=== PATIENT | male | born 1970 | race African-American/Black ===

== ENCOUNTER 2018-02-11 12:37 | Inpatient (IN) | payer OTHER ==
[2018-02-11 13:21] VITALS: BMI 22.0
--- NOTE | 2018-02-11 16:16 | HP ---
CIWA Score - CIWA Score Nausea/Vomitin Muscle Tremors: 3 Anxiety: 3 Agitation: 3 Paroxysmal Sweats: 1-Minimal Palms Moist Orientation: 0-Oriented Tacttile Disturbances: 2-Mild Itch/Numbness/Burn Auditory Disturbances: 2-Mild Harshness/Frighten Visual Disturbances: 1-Very Mild Sensitivity Headache: 2-Mild CIWA-Ar Total Score: 20 Admission ROS [facility] - HPI Chief Complaint: i am here need help to stop drinking alcohol and cocaine Allergies/Adverse Reactions: Allergies Allergy/AdvReac Type Severity Reaction Status Date / Time No Known Allergies Allergy Verified 02/11/18 16:25 History of Present Illness: this 47 years old male with alcohol and cocaine dependence,seeking detox, withdrawal symptom,never been in detox before, hypertension,hiv since 1993 depression nicotine dependence no significant period of sobriety Exam Limitations: No Limitations - Ebola screening Have you traveled outside of the country in the last 21 days: No Have you had contact with anyone from an Ebola affected area: No Have you been sick,other than usual withdrawal symptoms: Yes Do you have a fever: No - Review of Systems Constitutional: Loss of Appetite, Malaise, Night Sweats, Changes in sleep, Weakness, Unintentional Wgt. Loss EENT: reports: Nose Congestion Respiratory: reports: No Symptoms reported Cardiac: reports: No Symptoms Reported GI: reports: Nausea, Vomiting, Abdominal cramping : reports: No Symptoms Reported Musculoskeletal: reports: Back Pain, Muscle Pain Integumentary: reports: Dryness Neuro: reports: Headache, Tremors Endocrine: reports: No Symptoms Reported Hematology: reports: No Symptoms Reported, Other (hiv) Psychiatric: reports: No Sypmtoms Reported, Judgement Intact, Mood/Affect Appropiate, Orientated x3 (insomnia), Anxious, Depressed Patient History - Patient Medical History Hx Anemia: No Hx Chronic Obstructive Pulmonary Disease (COPD): No Hx Cancer: No Hx Cardiac Disorders: No Hx Congestive Heart Failure: No Hx Hypertension: Yes (on med) Hx Hypercholesterolemia: No Hx Pacemaker: No HX Cerebrovascular Accident: No Hx Seizures: No Hx Dementia: No Hx Diabetes: No Hx Gastrointestinal Disorders: No Hx Liver Disease: No Hx Genitourinary Disorders: No Hx Sexually Transmitted Disorders: Yes (1984 gonorrhea) Hx Renal Disease (ESRD): No Hx Thyroid Disease: No Hx Human Immunodeficiency Virus (HIV): Yes (since 1993) Hx Hepatitis C: No Hx Depression: Yes 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44,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) Hx Bipolar Disorder: No Hx Schizophrenia: No Other Medical History: anxiety,depression,insomnia,s/p cataract surgery left pot trauma in 2016 - Patient Surgical History Past Surgical History: Yes Hx Cataract Extraction: Yes (in 2016 left post traumatic ,vision loss left) - PPD History Previous Implant?: Yes Documented Results: Negative w/o proof Implanted On Prior R Admission?: No PPD to be Administered?: Yes - Smoking Cessation Smoking history: Current every day smoker Have you smoked in the past 12 months: Yes Aproximately how many cigarettes per day: 7 Cigars Per Day: 0 Hx Chewing Tobacco Use: No Initiated information on smoking cessation: Yes 'Breaking Loose' booklet given: 02/11/18 - Substance & Tx. History Hx Alcohol Use: Yes Hx Substance Use: Yes Substance Use Type: Alcohol, Cocaine Hx Substance Use Treatment: No - Substances Abused Alcohol Route: Oral Frequency: Daily Amount used: 6 of 22 ozs of beer Age of first use: 12 Date of Last Use: 02/11/18 Cocaine Route: Smoking Frequency: Daily Amount used: 30$ Age of first use: 17 Date of Last Use: 02/11/18 Family Disease History - Family Disease History Family History: Denies Admission Physical Exam [facility] - Vital Signs Vital Signs: Vital Signs - 24 hr 02/11/18 13:19 Temperature 97.6 F Pulse Rate 86 Respiratory 18 Rate Blood Pressure 126/85 - Physical General Appearance: Yes: Moderate Distress, Tremorous, Irritable, Sweating, Anxious HEENTM: Yes: Normal ENT Inspection, Pharynx Normal, Nasal Congestion, Other (s/ p surgery for cataract left eye in 2016 with vision loss) Respiratory: Yes: Lungs Clear, Normal Breath Sounds, No Respiratory Distress Neck: Yes: Within Normal Limits, Supple, Trachea in good position Breast: Yes: Within Normal Limits Cardiology: Yes: Within Normal Limits, Regular Rhythm, Regular Rate, S1, S2 Abdominal: Yes: Within Normal Limits, Normal Bowel Sounds, Non Tender, Flat, Soft Genitourinary: Yes: Within Normal Limits Back: Yes: Muscle Spasm Musculoskeletal: Yes: Back pain, Muscle Pain Extremities: Yes: Within Normal Limits, Normal Range of Motion, Tremors 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, Fully Oriented, Alert, Motor Strength 5/5 Integumentary: Yes: Dry Lymphatic: Yes: Within Normal Limits - Diagnostic (1) Alcohol dependence with uncomplicated withdrawal Current Visit: Yes Status: Acute (2) Cocaine dependence Current Visit: Yes Status: Acute (3) HIV (human immunodeficiency virus infection) Current Visit: Yes Status: Acute (4) Insomnia secondary to depression with anxiety Current Visit: Yes Status: Acute (5) Nicotine dependence Current Visit: Yes Status: Acute Cleared for Admission [facility] - Detox or Rehab [facility] Level of Care: Medically Managed Detox Regimen/Protocol: Librium [facility] Breath Alcohol Content Breath Alcohol Content: 0 Urine Drug Screen - Results Drug Screen Negative: No Urine Drug Screen Results: THC-Marijuana, NICHOLAS-Cocaine
[2018-02-11] MEDS ORDERED: IBUPROFEN 400 MG TABLET (FP) PO PRN (16:32)
[2018-02-11] MEDS ORDERED: MAGNESIUM CITRATE 300 ML BOTTLE PO PRN (16:32)
[2018-02-11] MEDS ORDERED: P-EPHED 60MG/TRIPROLIDI 2.5MG TABLET PO PRN (16:32)
[2018-02-11] MEDS ORDERED: guaiFENesin/D-METHORPHAN HB 10 ML UNIT-DOSE CUPS PO PRN (16:32)
[2018-02-11] MEDS ORDERED: LOPERAMIDE HCL 2 MG CAPSULE PO PRN (16:32)
[2018-02-11] MEDS ORDERED: ACETAMINOPHEN 325 MG TABLET (FP) PO PRN (16:32)
[2018-02-11] MEDS ORDERED: MENTHOL/PHENOL 1 EACH UD MM PRN (16:32)
[2018-02-11] MEDS ORDERED: MAGNESIUM HYDROX 2400MG/30ML ORAL SUSPENSION 30 ML CUP PO PRN (16:32)
[2018-02-11] MEDS ORDERED: MAG HYDROX/AL HYDROX/SIMETH 30 ML UNIT-DOSE CUP PO PRN (16:32)
[2018-02-11] MEDS ORDERED: hydrOXYzine PAMOATE 50 MG CAPSULE (FP) PO PRN (16:32)
[2018-02-11] MEDS ORDERED: chlordiazePOXIDE HCL 25 MG CAPSULE PO PRN (16:32)
[2018-02-11] MEDS ORDERED: chlordiazePOXIDE HCL 25 MG CAPSULE PO ONE (17:15)
[2018-02-11] MEDS ORDERED: MELATONIN 5 MG TABLETS PO PRN (22:00)
[2018-02-11] MEDS: THIAMINE HCL 100 MG TABLET (FP) PO SCH (23:04)
[2018-02-11] MEDS: chlordiazePOXIDE HCL 25 MG CAPSULE PO SCH (23:04)
[2018-02-11 23:46] LABS: URINE APPEARANCE SLCLOUDY; URINE COLOR AMBER; URINE GLUCOSE (UA) NEGATIVE (NEGATIVE); URINE KETONE TRACE (NEGATIVE); URINE LEUK ESTERASE NEGATIVE (NEGATIVE); URINE NITRITE NEGATIVE (NEGATIVE); URINE UROBILINOGEN 4.0 E.U/dl mg/dL (0.2-1.0)
[2018-02-11 23:53] LABS: URINE PROTEIN 1+ (NEGATIVE)
[2018-02-11 23:57] LABS: EPI CELLS RARE /HPF (FEW); URINE MUCUS MANY
[2018-02-12] MEDS: chlordiazePOXIDE HCL 25 MG CAPSULE PO SCH ×4 (06:06→22:11)
[2018-02-12 09:50] LABS: HEMATOCRIT 42.9 % (35.4-49); HEMOGLOBIN 14.4 GM/dL (11.7-16.9); MCH 30.4 pg (25.7-33.7); MCHC 33.7 g/dl (32.0-35.9); MEAN CELL VOLUME 90.3 fl (80-96); MEAN PLT VOLUME 8.6 fl (7.5-11.1); PLATELET COUNT 284 K/MM3 (134-434); RBC 4.74 M/mm3 (4.00-5.60); RDW 15.8 % (11.9-15.9); WHITE BLOOD COUNT 8.1 K/mm3 (4.0-10.0)
[2018-02-12] MEDS: PATIENT'S OWN MEDICATION (NON-FORMULARY) (Emtricitabine/Tenofov Alafenam [Descovy 200-25 M PO SCH (10:20)
[2018-02-12] MEDS: PRENATAL VITAMINS W/ FOLIC ACID TABLET (FP) PO SCH (10:20)
[2018-02-12] MEDS: PATIENT'S OWN MEDICATION (NON-FORMULARY) (Dolutegravir Sodium 50 MG) PO SCH (10:20)
[2018-02-12] MEDS: HYDROCHLOROTHIAZIDE PO SCH (10:20)
[2018-02-12 10:42] LABS: ALBUMIN 3.6 g/dl (3.4-5.0); ANION GAP 6 (8-16); BLOOD UREA NITROGEN 17 mg/dL (7-18); CHLORIDE 109 mmol/L (98-107); CO2 26 mmol/L (21-32); GLUCOSE,RANDOM 105 mg/dL (74-106); POTASSIUM 4.9 mmol/L (3.5-5.1); SGOT/AST 29 U/L (15-37); SGPT/ALT 27 U/L (12-78); SODIUM 141 mmol/L (136-145)
[2018-02-12 10:44] LABS: ALK PHOS 100 U/L (45-117); BILIRUBIN,TOTAL 0.6 mg/dL (0.2-1.0); CALCIUM 8.6 mg/dL (8.5-10.1); CREATININE 1.5 mg/dL (0.7-1.3); TOT PROT 7.2 g/dl (6.4-8.2)
--- NOTE | 2018-02-12 11:14 | CONSULT ---
[facility] Psychiatric Consult - Data Date of interview: 02/12/18 Admission source: [facility] Identifying data: Patient is a 47 year old single male, without kids, unemployed , receiving public assistance, and resides at an [facility]. This is patient's first admission to [facility]. Patient admitted to for alcohol and cocaine dependence. Substance Abuse History: Following information confirmed with Mr. Caceres: - Smoking Cessation. Smoking history: Current every day smoker. Have you smoked in the past 12 months: Yes. Aproximately how many cigarettes per day: 7. Cigars Per Day: 0. Hx Chewing Tobacco Use: No. Initiated information on smoking cessation: Yes. 'Breaking Loose' booklet given: 02/11/18. - Substance & Tx. History. Hx Alcohol Use: Yes. Hx Substance Use: Yes. Substance Use Type : Alcohol, Cocaine. Hx Substance Use Treatment: No. - Substances Abused. Alcohol. Route: Oral. Frequency: Daily. Amount used: 6 of 22 ozs of beer. Age of first use: 12. Date of Last Use: 02/11/18. Cocaine. Route: Smoking. Frequency: Daily. Amount used: 30$. Age of first use: 17. Date of Last Use: 02/11/18 Medical History: hypertension, HIV Psychiatric History: Patient denies h/o psychiatric hospitalizations, and suicide attempts. Pt. was incarcerated from [id number] for arm robbery and has been prescribed mirtzapine for nine years. Pt. is currently accepting mirtzapine 45mg qhs. Patient is currently receiving his refills from [facility] Pt. reports a diagnosis of Antisocial/depression. Patient reports one suicide attempt while in [place]ision via self multilation. Patient currently denies suicidal and homicidal ideation. Physical/Sexual Abuse/Trauma History: Denies. Mental Status Exam - Mental Status Exam Alert and Oriented to: Time, Place, Person Cognitive Function: Good Patient Appearance: Well Groomed Mood: Hopeful Affect: Mood Congruent Patient Behavior: Appropriate, Cooperative Speech Pattern: Clear, Appropriate Voice Loudness: Normal Thought Process: Goal Oriented Thought Disorder: Not Present Hallucinations: Denies Suicidal Ideation: Denies Homicidal Ideation: Denies Insight/Judgement: Poor Sleep: Fair Appetite: Fair Muscle strength/Tone: Normal Gait/Station: Normal Psychiatric Findings - Problem List ([place] 1, 2,3) (1) Substance induced mood disorder Current Visit: Yes Status: Acute (2) Alcohol dependence with uncomplicated withdrawal Current Visit: Yes Status: Acute (3) Cocaine dependence Current Visit: Yes Status: Acute Qualifiers: Substance use status: uncomplicated Qualified Code(s): F14.20 - Cocaine dependence, uncomplicated (4) Nicotine dependence Current Visit: Yes Status: Acute Qualifiers: Nicotine product type: cigarettes Substance use status: in withdrawal Qualified Code(s): F17.213 - Nicotine dependence, cigarettes, with withdrawal - Initial Treatment Plan Initial Treatment Plan: Psychoeducation provided. Detoxification in progress. Mirtzapine 45mg qhs ordered. Benefits and side effects discusssed. Verbal consent given. Will continue to monitor.
--- NOTE | 2018-02-12 11:17 | PN ---
[facility] CIWA - CIWA Score Nausea/Vomitin-No Nausea/No Vomiting Muscle Tremors: 4-Moderate,w/Arms Extend Anxiety: 4-Mod. Anxious/Guarded Agitation: 4-Moderately Restless Paroxysmal Sweats: 1-Minimal Palms Moist Orientation: 0-Oriented Tacttile Disturbances: 0-None Auditory Disturbances: 0-None Visual Disturbances: 0-None Headache: 0-None Present CIWA-Ar Total Score: 13 S Progress Note (SOAP) Subjective: ANXIETY,SWEATS,FATIGUE. Objective: 02/12/18 11:19 Vital Signs Temperature 96.2 F L 02/12/18 09:19 Pulse Rate 79 02/12/18 09:19 Respiratory Rate 18 02/12/18 09:19 Blood Pressure 136/69 02/12/18 09:19 O2 Sat by Pulse Oximetry (%) Laboratory Last Values WBC 8.1 K/mm3 (4.0-10.0) 02/12/18 06:00 RBC 4.74 M/mm3 (4.00-5.60) 02/12/18 06:00 Hgb 14.4 GM/dL (11.7-16.9) 02/12/18 06:00 Hct 42.9 % (35.4-49) 02/12/18 06:00 MCV 90.3 fl (80-96) 02/12/18 06:00 MCH 30.4 pg (25.7-33.7) 02/12/18 06:00 MCHC 33.7 g/dl (32.0-35.9) 02/12/18 06:00 RDW 15.8 % (11.9-15.9) 02/12/18 06:00 Plt Count 284 K/MM3 (134-434) 02/12/18 06:00 MPV 8.6 fl (7.5-11.1) 02/12/18 06:00 Sodium 141 mmol/L (136-145) 02/12/18 06:00 Potassium 4.9 mmol/L (3.5-5.1) 02/12/18 06:00 Chloride 109 mmol/L (98-107) H 02/12/18 06:00 Carbon Dioxide 26 mmol/L (21-32) 02/12/18 06:00 Anion Gap 6 (8-16) L 02/12/18 06:00 BUN 17 mg/dL (7-18) 02/12/18 06:00 Creatinine 1.5 mg/dL (0.7-1.3) H 02/12/18 06:00 Creat Clearance w eGFR 49.74 (>60) 02/12/18 06:00 Random Glucose 105 mg/dL (74-106) 02/12/18 06:00 Calcium 8.6 mg/dL (8.5-10.1) 02/12/18 06:00 Total Bilirubin 0.6 mg/dL (0.2-1.0) 02/12/18 06:00 AST 29 U/L (15-37) 02/12/18 06:00 ALT 27 U/L (12-78) 02/12/18 06:00 Alkaline Phosphatase 100 U/L (45-117) 02/12/18 06:00 Total Protein 7.2 g/dl (6.4-8.2) 02/12/18 06:00 Albumin 3.6 g/dl (3.4-5.0) 02/12/18 06:00 Urine Color Tila 02/11/18 23:50 Urine Appearance Slcloudy 02/11/18 23:50 Urine pH 5.0 (5.0-8.0) 02/11/18 23:50 Ur Specific [place] 1.032 (1.001-1.035) 02/11/18 23:50 Urine Protein 1+ (NEGATIVE) H 02/11/18 23:50 Urine Glucose (UA) Negative (NEGATIVE) 02/11/18 23:50 Urine Ketones Trace (NEGATIVE) H 02/11/18 23:50 Urine Blood 1+ (NEGATIVE) H 02/11/18 23:50 Urine Nitrite Negative (NEGATIVE) 02/11/18 23:50 Urine Bilirubin 2.0 (<2.0 mg/dL) 02/11/18 23:50 Urine Urobilinogen 4.0 e.u/dl mg/dL (0.2-1.0) 02/11/18 23:50 Ur Leukocyte Esterase Negative (NEGATIVE) 02/11/18 23:50 Urine WBC (Auto) 3 /hpf (3-5) 02/11/18 23:50 Urine RBC (Auto) 21 /hpf (0-3) 02/11/18 23:50 Ur Epithelial Cells Rare /HPF (FEW) 02/11/18 23:50 Urine Mucus Many 02/11/18 23:50 Assessment: 02/12/18 11:19 WITHDRAWAL SX Plan: CONTINUE DETOX INCREASE PO FLUIDS. REPEAT UA
--- NOTE | 2018-02-12 11:31 | EKG ---
Test Reason : Blood Pressure : / mmHG Vent. Rate : 088 BPM Atrial Rate : 088 BPM P-R Int : 120 ms QRS Dur : 090 ms QT Int : 356 ms P-R-T Axes : 078 078 052 degrees QTc Int : 430 ms NORMAL SINUS RHYTHM MODERATE VOLTAGE CRITERIA FOR LVH, MAY BE NORMAL VARIANT BORDERLINE ECG NO PREVIOUS ECGS AVAILABLE Confirmed by RAMONA DAILY MD ([id number]) on 02/12/2018 11:31:13 AM Referred By: Confirmed By:RAMONA DAILY MD
[2018-02-12] MEDS: MIRTAZAPINE 15 MG TABLET (FP) PO SCH (22:11)
[2018-02-12] MEDS: THIAMINE HCL 100 MG TABLET (FP) PO SCH (22:11)
[2018-02-13] MEDS: chlordiazePOXIDE HCL 25 MG CAPSULE PO SCH ×3 (05:25→17:50)
[2018-02-13] MEDS: HYDROCHLOROTHIAZIDE PO SCH (10:21)
[2018-02-13] MEDS: PATIENT'S OWN MEDICATION (NON-FORMULARY) (Emtricitabine/Tenofov Alafenam [Descovy 200-25 M PO SCH (10:21)
[2018-02-13] MEDS: PRENATAL VITAMINS W/ FOLIC ACID TABLET (FP) PO SCH (10:21)
[2018-02-13] MEDS: PATIENT'S OWN MEDICATION (NON-FORMULARY) (Dolutegravir Sodium 50 MG) PO SCH (10:21)
--- NOTE | 2018-02-13 12:40 | PN ---
[facility] CIWA - CIWA Score Nausea/Vomitin-No Nausea/No Vomiting Muscle Tremors: 4-Moderate,w/Arms Extend Anxiety: 4-Mod. Anxious/Guarded Agitation: 3 Paroxysmal Sweats: 1-Minimal Palms Moist Orientation: 0-Oriented Tacttile Disturbances: 0-None Auditory Disturbances: 0-None Visual Disturbances: 0-None Headache: 0-None Present CIWA-Ar Total Score: 12 S Progress Note (SOAP) Subjective: ANXIETY,SWEATS, IRRITABILITY,FATIGUE. Objective: 02/13/18 12:38 Vital Signs Temperature 96.2 F L 02/13/18 10:01 Pulse Rate 77 02/13/18 10:01 Respiratory Rate 18 02/13/18 10:01 Blood Pressure 103/61 02/13/18 10:01 O2 Sat by Pulse Oximetry (%) Laboratory Last Values WBC 8.1 K/mm3 (4.0-10.0) 02/12/18 06:00 RBC 4.74 M/mm3 (4.00-5.60) 02/12/18 06:00 Hgb 14.4 GM/dL (11.7-16.9) 02/12/18 06:00 Hct 42.9 % (35.4-49) 02/12/18 06:00 MCV 90.3 fl (80-96) 02/12/18 06:00 MCH 30.4 pg (25.7-33.7) 02/12/18 06:00 MCHC 33.7 g/dl (32.0-35.9) 02/12/18 06:00 RDW 15.8 % (11.9-15.9) 02/12/18 06:00 Plt Count 284 K/MM3 (134-434) 02/12/18 06:00 MPV 8.6 fl (7.5-11.1) 02/12/18 06:00 Sodium 141 mmol/L (136-145) 02/12/18 06:00 Potassium 4.9 mmol/L (3.5-5.1) 02/12/18 06:00 Chloride 109 mmol/L (98-107) H 02/12/18 06:00 Carbon Dioxide 26 mmol/L (21-32) 02/12/18 06:00 Anion Gap 6 (8-16) L 02/12/18 06:00 BUN 17 mg/dL (7-18) 02/12/18 06:00 Creatinine 1.5 mg/dL (0.7-1.3) H 02/12/18 06:00 Creat Clearance w eGFR 49.74 (>60) 02/12/18 06:00 Random Glucose 105 mg/dL (74-106) 02/12/18 06:00 Calcium 8.6 mg/dL (8.5-10.1) 02/12/18 06:00 Total Bilirubin 0.6 mg/dL (0.2-1.0) 02/12/18 06:00 AST 29 U/L (15-37) 02/12/18 06:00 ALT 27 U/L (12-78) 02/12/18 06:00 Alkaline Phosphatase 100 U/L (45-117) 02/12/18 06:00 Total Protein 7.2 g/dl (6.4-8.2) 02/12/18 06:00 Albumin 3.6 g/dl (3.4-5.0) 02/12/18 06:00 Urine Color Tila 02/11/18 23:50 Urine Appearance Slcloudy 02/11/18 23:50 Urine pH 5.0 (5.0-8.0) 02/11/18 23:50 Ur Specific [place] 1.032 (1.001-1.035) 02/11/18 23:50 Urine Protein 1+ (NEGATIVE) H 02/11/18 23:50 Urine Glucose (UA) Negative (NEGATIVE) 02/11/18 23:50 Urine Ketones Trace (NEGATIVE) H 02/11/18 23:50 Urine Blood 1+ (NEGATIVE) H 02/11/18 23:50 Urine Nitrite Negative (NEGATIVE) 02/11/18 23:50 Urine Bilirubin 2.0 (<2.0 mg/dL) 02/11/18 23:50 Urine Urobilinogen 4.0 e.u/dl mg/dL (0.2-1.0) 02/11/18 23:50 Ur Leukocyte Esterase Negative (NEGATIVE) 02/11/18 23:50 Urine WBC (Auto) 3 /hpf (3-5) 02/11/18 23:50 Urine RBC (Auto) 21 /hpf (0-3) 02/11/18 23:50 Ur Epithelial Cells Rare /HPF (FEW) 02/11/18 23:50 Urine Mucus Many 02/11/18 23:50 RPR Titer Nonreactive (NONREACTIVE) 02/12/18 06:00 Assessment: 02/13/18 12:38 WITHDRAWAL SX Plan: CONTINUE DETOX INCREASE PO FLUIDS REPEAT UA SPECIMEN PENDING COLLECTION FROM PATIENT.
[2018-02-13 17:40] VITALS: BP 114/62; PULSE 71; TEMP 96.8
[2018-02-13 18:30] LABS: URINE APPEARANCE CLEAR; URINE BILIRUBIN NEGATIVE (<2.0 mg/dL); URINE COLOR YELLOW; URINE GLUCOSE (UA) NEGATIVE (NEGATIVE); URINE KETONE NEGATIVE (NEGATIVE); URINE LEUK ESTERASE NEGATIVE (NEGATIVE); URINE NITRITE NEGATIVE (NEGATIVE); URINE PROTEIN NEGATIVE (NEGATIVE); URINE UROBILINOGEN NEGATIVE mg/dL (0.2-1.0)
--- NOTE | 2018-02-13 22:00 | PN ---
S Progress Note Note: INFORMED CLIENT ELOPED OFF UNIT. CLIENT WAS NOTED IN SECURITY RETRIEVING PERSONAL PROPERTY. CLIENT STATED HE WANTS TO LEAVE. REFUSED TO SIGN AMA PER NURSING. CLIENT LEFT FACILITY A/0 X3 NAD Vital Signs Temperature 96.8 F L 02/13/18 17:40 Pulse Rate 71 02/13/18 17:40 Respiratory Rate 18 02/13/18 17:40 Blood Pressure 114/62 02/13/18 17:40 O2 Sat by Pulse Oximetry (%)
--- NOTE | 2018-02-13 22:00 | DS ---
[facility] Detox Discharge Summary Admission Date: 02/11/18 Discharge Date: 02/13/18 - History Present History: Alcohol Dependence, Cocaine Dependence Additional Comments: Laboratory Tests 02/11/18 02/12/18 02/12/18 23:50 06:00 06:00 WBC 8.1 RBC 4.74 Hgb 14.4 Hct 42.9 MCV 90.3 MCH 30.4 MCHC 33.7 RDW 15.8 Plt Count 284 MPV 8.6 Sodium 141 Potassium 4.9 Chloride 109 H Carbon Dioxide 26 Anion Gap 6 L BUN 17 Creatinine 1.5 H Creat Clearance w eGFR 49.74 Random Glucose 105 Calcium 8.6 Total Bilirubin 0.6 AST 29 ALT 27 Alkaline Phosphatase 100 Total Protein 7.2 Albumin 3.6 Urine Color Tila Urine Appearance Slcloudy Urine pH 5.0 Ur Specific [place] 1.032 Urine Protein 1+ H Urine Glucose (UA) Negative Urine Ketones Trace H Urine Blood 1+ H Urine Nitrite Negative Urine Bilirubin 2.0 Urine Urobilinogen 4.0 e.u/dl Ur Leukocyte Esterase Negative Urine WBC (Auto) 3 Urine RBC (Auto) 21 Ur Epithelial Cells Rare Urine Mucus Many RPR Titer 02/12/18 02/13/18 06:00 14:20 WBC RBC Hgb Hct MCV MCH MCHC RDW Plt Count MPV Sodium Potassium Chloride Carbon Dioxide Anion Gap BUN Creatinine Creat Clearance w eGFR Random Glucose Calcium Total Bilirubin AST ALT Alkaline Phosphatase Total Protein Albumin Urine Color Yellow Urine Appearance Clear Urine pH 8.0 D Ur Specific [place] 1.017 Urine Protein Negative Urine Glucose (UA) Negative Urine Ketones Negative Urine Blood Negative Urine Nitrite Negative Urine Bilirubin Negative Urine Urobilinogen Negative Ur Leukocyte Esterase Negative Urine WBC (Auto) Urine RBC (Auto) Ur Epithelial Cells Urine Mucus RPR Titer Nonreactive Pertinent Past History: hiv nicotine dependence insomnia - Physical Exam Results Vital Signs: Vital Signs Temperature 96.8 F L 02/13/18 17:40 Pulse Rate 71 02/13/18 17:40 Respiratory Rate 18 02/13/18 17:40 Blood Pressure 114/62 02/13/18 17:40 O2 Sat by Pulse Oximetry (%) Pertinent Admission Physical Exam Findings: WITHDRAWAL SX'S - Treatment Hospital Course: Discharged Condition Good - Medication Discharge Medications: Ambulatory Orders Dolutegravir Sodium [Tivicay] 50 mg PO DAILY 02/11/18 Emtricitabine/Tenofov Alafenam [Descovy 200-25 mg Tablet (Nf)] 1 each PO DAILY 02/11/18 Hydrochlorothiazide [Hctz -] 12.5 mg PO DAILY 02/11/18 Mirtazapine [Remeron [DO NOT STOCK]] 45 mg PO HS 02/11/18 - Diagnosis (1) Alcohol dependence with uncomplicated withdrawal Status: Acute (2) Cocaine dependence Status: Acute Qualifiers: Substance use status: uncomplicated Qualified Code(s): F14.20 - Cocaine dependence, uncomplicated (3) HIV (human immunodeficiency virus infection) Status: Acute (4) Insomnia secondary to depression with anxiety Status: Acute (5) Nicotine dependence Status: Acute Qualifiers: Nicotine product type: cigarettes Substance use status: in withdrawal Qualified Code(s): F17.213 - Nicotine dependence, cigarettes, with withdrawal (6) Substance induced mood disorder Status: Acute - AMA Did Patient Leave Against Medical Advice: Yes
[2018-02-13] MEDS ORDERED: chlordiazePOXIDE 5 MG CAPSULE PO SCH (23:00)
[2018-02-13] MEDS: THIAMINE HCL 100 MG TABLET (FP) PO SCH (23:06)
[2018-02-13] MEDS: MIRTAZAPINE 15 MG TABLET (FP) PO SCH (23:07)
[2018-02-14] MEDS ORDERED: chlordiazePOXIDE HCL 10 MG CAPSULE PO SCH (23:00)
== END 2018-02-13 08:45 | disposition left against medical advice (07) | DRG 770 ==
LOC: YASAS 12:37 → Y3N 16:42
PROVIDERS: ADMIT Internal Medicine; ATTEND Internal Medicine
PROC: HZ2ZZZZ Detoxification Services for Substance Abuse Treatment (ICD-10-PCS; principal; 2018-02-11)
DX: F10.230 Alcohol dependence with withdrawal, uncomplicated (principal); F14.20 Cocaine dependence, uncomplicated; F17.210 Nicotine dependence, cigarettes, uncomplicated; F51.05 Insomnia due to other mental disorder; F32.9 Major depressive disorder, single episode, unspecified; F19.24 Other psychoactive substance dependence with psychoactive substance-induced mood disorder; Z21 Asymptomatic human immunodeficiency virus [HIV] infection status; H54.62 Unqualified visual loss, left eye, normal vision right eye; Z98.42 Cataract extraction status, left eye; I10 Essential (primary) hypertension; Z86.19 Personal history of other infectious and parasitic diseases
CPT/HCPCS: 36415; 80053; 81003; 81015; 85027; 86593; 93005; 93010

== ENCOUNTER 2018-07-15 11:18 | Inpatient (IN) | payer OTHER ==
[2018-07-15 11:33] VITALS: BMI 22.2
--- NOTE | 2018-07-15 11:58 | HP ---
Admission ROS [facility] Chief Complaint: i am here for rehab from alcohol and cocaine Allergies/Adverse Reactions: Allergies Allergy/AdvReac Type Severity Reaction Status Date / Time No Known Allergies Allergy Verified 07/15/18 14:39 History of Present Illness: this 47 years old male with alcohol and cocaine dependence seeking rehab, admtted at [facility] 07/07/18 to 07/09/18 detox history of hypertension on medication hiv since 1998 nn compliance with medication last 10 days ago weight loss depression nicotine dependence on parole multiple admissions in detox Exam Limitations: No Limitations - Ebola screening Have you traveled outside of the country in the last 21 days: No Have you had contact with anyone from an Ebola affected area: No Have you been sick,other than usual withdrawal symptoms: No Do you have a fever: No - Review of Systems Constitutional: No Symptoms Reported, Loss of Appetite, Unintentional Wgt. Loss EENT: reports: No Symptoms Reported Respiratory: reports: No Symptoms reported Cardiac: reports: No Symptoms Reported GI: reports: No Symptoms Reported : reports: No Symptoms Reported Musculoskeletal: reports: No Symptoms Reported Integumentary: reports: No Symptoms Reported Neuro: reports: No Symptoms reported Endocrine: reports: No Symptoms Reported Hematology: reports: No Symptoms Reported, Other (hiv) Psychiatric: reports: Judgement Intact, Mood/Affect Appropiate, Orientated x3, Depressed Patient History - Patient Medical History Hx Anemia: No Hx Asthma: Yes (childhood asthma.) Hx Chronic Obstructive Pulmonary Disease (COPD): No Hx Cancer: No Hx Cardiac Disorders: No Hx Congestive Heart Failure: No Hx Hypertension: Yes (on med) Hx Hypercholesterolemia: No Hx Pacemaker: No HX Cerebrovascular Accident: No Hx Seizures: No Hx Dementia: No Hx Diabetes: No Hx Gastrointestinal Disorders: No Hx Liver Disease: No Hx Genitourinary Disorders: No Hx Sexually Transmitted Disorders: Yes (1984 gonorrhea) Hx Renal Disease (ESRD): No Hx Thyroid Disease: No Hx Human Immunodeficiency Virus (HIV): Yes (since 1993) Hx Hepatitis C: No Hx Depression: Yes 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44,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) Hx Bipolar Disorder: No Hx Schizophrenia: No Other Medical History: no suicidal,no homicidal,infected right hand treated with antibiotics - Patient Surgical History Past Surgical History: Yes Hx Cataract Extraction: Yes (in 2016 left post traumatic ,vision loss left) - PPD History Previous Implant?: Yes Documented Results: Negative w/proof Implanted On Prior [facility] Admission?: Yes Date: 02/13/18 Results: 0 PPD to be Administered?: No - Smoking Cessation Smoking history: Current every day smoker Have you smoked in the past 12 months: Yes Aproximately how many cigarettes per day: 7 Cigars Per Day: 0 Hx Chewing Tobacco Use: No Initiated information on smoking cessation: Yes 'Breaking Loose' booklet given: 07/15/18 - Substance & Tx. History Hx Alcohol Use: Yes Hx Substance Use: Yes Substance Use Type: Alcohol, Cocaine Hx Substance Use Treatment: Yes ([facility] 07/07/18) - Substances Abused Alcohol Route: Oral Frequency: Daily Amount used: (7 ) 24oz can of beer Age of first use: 13 Date of Last Use: 07/14/18 Crack Route: Smoking Frequency: Daily Amount used: $30 Age of first use: 17 Date of Last Use: 07/14/18 Marijuana/Hashish Route: Smoking Frequency: Daily Amount used: 1 bag Age of first use: 17 Date of Last Use: 07/14/18 Family Disease History - Family Disease History Family History: Denies Admission Physical Exam S - Vital Signs Vital Signs: Vital Signs - 24 hr 07/15/18 11:28 Temperature 97.1 F L Pulse Rate 64 Respiratory 18 Rate Blood Pressure 136/84 - Physical General Appearance: Yes: Within Normal Limits HEENTM: Yes: Normal ENT Inspection, Pharynx Normal (vision loss left eye) Respiratory: Yes: Lungs Clear, Normal Breath Sounds, No Respiratory Distress Neck: Yes: Within Normal Limits Breast: Yes: Within Normal Limits Cardiology: Yes: Within Normal Limits, Regular Rhythm, Regular Rate, S1, S2 Abdominal: Yes: Within Normal Limits, Normal Bowel Sounds, Non Tender, Soft Genitourinary: Yes: Within Normal Limits Musculoskeletal: Yes: Within Normal Limits Extremities: Yes: Within Normal Limits (wound of right hand dorsal aspect) 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, Alert, Motor Strength 5/5 Integumentary: Yes: Within Normal Limits Lymphatic: Yes: Within Normal Limits - Diagnostic (1) Alcohol dependence Current Visit: Yes Status: Acute (2) Cocaine dependence Current Visit: No Status: Acute Qualifiers: Substance use status: uncomplicated Qualified Code(s): F14.20 - Cocaine dependence, uncomplicated (3) HIV (human immunodeficiency virus infection) Current Visit: No Status: Acute (4) Nicotine dependence Current Visit: No Status: Acute Qualifiers: Nicotine product type: cigarettes Substance use status: in withdrawal Qualified Code(s): F17.213 - Nicotine dependence, cigarettes, with withdrawal (5) Status post cataract surgery Current Visit: No Status: Chronic Qualifiers: Laterality: left Qualified Code(s): Z98.42 - Cataract extraction status, left eye (6) Visual loss, left eye Current Visit: No Status: Chronic (7) Weight loss Current Visit: Yes Status: Acute (8) Anxiety and depression Current Visit: Yes Status: Acute (9) Bite wound of right hand Current Visit: Yes Status: Acute Cleared for Admission [facility] - Detox or Rehab Claeared for Rehab Admission: Yes [facility] Breath Alcohol Content Breath Alcohol Content: 0 Urine Drug Screen - Results Drug Screen Negative: No Urine Drug Screen Results: THC-Marijuana, NICHOLAS-Cocaine, BZO-Benzodiazepines, BUP- Suboxone Inpatient Rehab Admission - Initial Determination Are CD services needed?: Yes Free of communicable disease: Yes Not in need of hospitalization: Yes - Rehab Admission Criteria Previous failed treatment: Yes Poor recovery environment: Yes Comorbidities: Yes Lacks judgement: No Patient is meeting Inpatient Rehab admission criteria:: Yes
[2018-07-15] MEDS ORDERED: ACETAMINOPHEN 325 MG TABLET (FP) PO PRN (12:09)
[2018-07-15] MEDS ORDERED: MAGNESIUM CITRATE 300 ML BOTTLE PO PRN (12:09)
[2018-07-15] MEDS ORDERED: guaiFENesin/D-METHORPHAN HB 10 ML UNIT-DOSE CUPS PO PRN (12:09)
[2018-07-15] MEDS ORDERED: P-EPHED 60MG/TRIPROLIDI 2.5MG TABLET PO PRN (12:09)
[2018-07-15] MEDS ORDERED: LOPERAMIDE HCL 2 MG CAPSULE PO PRN (12:09)
[2018-07-15] MEDS ORDERED: MAG HYDROX/AL HYDROX/SIMETH 30 ML UNIT-DOSE CUP PO PRN (12:09)
[2018-07-15] MEDS ORDERED: MAGNESIUM HYDROX 2400MG/30ML ORAL SUSPENSION 30 ML CUP PO PRN (12:09)
[2018-07-15] MEDS ORDERED: MENTHOL/PHENOL 1 EACH UD MM PRN (12:09)
[2018-07-15 14:40] LABS: HEMATOCRIT 42.6 % (35.4-49); HEMOGLOBIN 14.4 GM/dL (11.7-16.9); MCHC 33.9 g/dl (32.0-35.9); MEAN CELL VOLUME 88.5 fl (80-96); MEAN PLT VOLUME 7.9 fl (7.5-11.1); PLATELET COUNT 297 K/MM3 (134-434); RBC 4.81 M/mm3 (4.00-5.60); RDW 15.6 % (11.9-15.9); WHITE BLOOD COUNT 4.5 K/mm3 (4.0-10.0)
[2018-07-15 14:46] LABS: URINE APPEARANCE CLEAR; URINE BILIRUBIN NEGATIVE (<2.0 mg/dL); URINE COLOR LTYELLOW; URINE GLUCOSE (UA) NEGATIVE (NEGATIVE); URINE KETONE NEGATIVE (NEGATIVE); URINE LEUK ESTERASE NEGATIVE (NEGATIVE); URINE NITRITE NEGATIVE (NEGATIVE); URINE PROTEIN NEGATIVE (NEGATIVE); URINE UROBILINOGEN NEGATIVE mg/dL (0.2-1.0)
[2018-07-15 15:19] LABS: ALBUMIN 3.5 g/dl (3.4-5.0); ALK PHOS 88 U/L (45-117); ANION GAP 7 MMOL/L (8-16); BILIRUBIN,TOTAL 0.6 mg/dL (0.2-1); BLOOD UREA NITROGEN 14 mg/dL (7-18); CALCIUM 8.8 mg/dL (8.5-10.1); CHLORIDE 107 mmol/L (98-107); CO2 27 mmol/L (21-32); CREATININE 1.3 mg/dL (0.55-1.3); GLUCOSE,RANDOM 94 mg/dL (74-106); SGOT/AST 21 U/L (15-37); SGPT/ALT 24 U/L (13-61); SODIUM 141 mmol/L (136-145); TOT PROT 7.4 g/dl (6.4-8.2)
[2018-07-15] MEDS: BACITRACIN 0.9 GM PACKET TP SCH (21:42)
[2018-07-15] MEDS: AMOX TR/POT CLAV 875MG/125MG TABLETS (FP) PO SCH (21:42)
[2018-07-15] MEDS: MIRTAZAPINE 15 MG TABLET (FP) PO SCH (21:42)
[2018-07-15] MEDS: THIAMINE HCL 100 MG TABLET (FP) PO SCH (21:43)
[2018-07-15] MEDS ORDERED: MELATONIN 5 MG TABLETS PO PRN (22:00)
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
[2018-07-16] MEDS: BACITRACIN 0.9 GM PACKET TP SCH ×2 (10:40→21:10)
[2018-07-16] MEDS: AMOX TR/POT CLAV 875MG/125MG TABLETS (FP) PO SCH ×2 (10:40→21:10)
[2018-07-16] MEDS: PRENATAL VITAMINS W/ FOLIC ACID TABLET (FP) PO SCH (10:40)
[2018-07-16] MEDS: HYDROCHLOROTHIAZIDE 12.5 MG CAPSULE (FP) PO SCH (10:40)
[2018-07-16] MEDS ORDERED: FLU VACCINE QUAD 60 MCG/0.5 ML (MDV 18-19) IM ONE (12:00)
--- NOTE | 2018-07-16 18:35 | PN ---
Psychiatric Progress Note Vital Signs: Vital Signs Period Temp Pulse Resp BP Sys/Ashley Pulse Ox Last 24 Hr 97.9 F 58 18-20 120/79 Date of Session: 06/16/18 Chief Complaint:: "I was frustrated." HPI: Patient admitted to for alcohol dependence. ROS: Significant for hypertension, HIV+ since 1993, history of childhood asthma , treatment for gonorrhea in 1984 and surgery left eye with loss of vision in 2015(hit by a baseball) Current Medications: Active Medications Generic Name Dose Route Start Last Admin Trade Name Freq PRN Reason Stop Dose Admin Acetaminophen 650 mg 07/15/18 12:09 Tylenol - PO Q4H PRN FEVER Al Hydroxide/Mg Hydroxide 30 ml 07/15/18 12:09 Mylanta Oral Suspension - PO Q6H PRN DYSPEPSIA Amoxicillin/Clavulanate Potassium 1 tab 07/15/18 22:00 07/16/18 10:40 Augmentin - 875mg Tablet PO 1 tab BID MICHELLE Administration Bacitracin 0.9 gm 07/15/18 22:00 07/16/18 10:40 Bacitracin - TP 0.9 gm BID MICHELLE Administration Eucalyptus/Menthol/Phenol/Sorbitol 1 each 07/15/18 12:09 Cepastat Lozenge - MM Q4H PRN SORE THROAT Guaifenesin 10 ml 07/15/18 12:09 Robitussin Dm - PO Q6H PRN COUGH Hydrochlorothiazide 25 mg 07/16/18 10:00 07/16/18 10:40 Hctz - PO 25 mg DAILY MICHELLE Administration Hydroxyzine Pamoate 50 mg 07/15/18 12:09 Vistaril - PO Q4H PRN AGITATION Hydroxyzine Pamoate 50 mg 07/16/18 18:33 Vistaril - PO 07/16/18 18:34 ONCE ONE Ibuprofen 400 mg 07/15/18 12:09 Motrin - PO Q6H PRN Pain level 4-6 Loperamide HCl 4 mg 07/15/18 12:09 Imodium - PO Q6H PRN DIARRHEA Magnesium Citrate 300 ml 07/15/18 12:09 Citroma - PO Q48H PRN CONSTIPATION Magnesium Hydroxide 30 ml 07/15/18 12:09 Milk Of Magnesia - PO DAILY PRN CONSTIPATION Melatonin 5 mg 07/15/18 22:00 Melatonin PO HS PRN INSOMNIA Mirtazapine 45 mg 07/15/18 22:00 07/15/18 21:42 Remeron - PO 45 mg HS MICHELLE Administration Multivit/Folic Acid/Iron 1 tab 07/16/18 10:00 07/16/18 10:40 Vitamins (Sjr) - PO 1 tab DAILY MICHELLE Administration Pseudoephedrine/Triprolidine 1 combo 07/15/18 12:09 Actifed - PO TID PRN NASAL CONGESTION Thiamine HCl 100 mg 07/15/18 22:00 07/15/18 21:43 Vitamin B1 - PO 100 mg HS MICHELLE Administration Current Side Effect: No Lab tests ordered: No Lab tests reviewed: Yes Provider note:: Chart reviewed. Dr. Bartlett's note read and appreciated. Patient is a 47 year old who was admitted to for alcohol dependence. Patient self reports a history of depression. He is currently prescribed mirtzapine 45mg qhs. Call received by RN stating patient was having suicidal ideation and had thoughts to hang himself. Upon approach patient presented as calm, cooperative, and appropriately groomed. Pt. stated to ticket writer that today was a frustrating day. He reports speaking to his correctional probation officer earlier in the day who informed him that he is mandated to remain in rehab for 28 days. Then at approximately 5:45pm patient became upset after realizing that his roomate was a homosexual. He said knowing that made him "more frustrated." . He stated, " I took the cord from the wall and sat on the bed and thought about it. When the staff came in i told them i was going to hang. I was frustrated and having a leroy roomate made me more upset. So i asked to speak to psych to calm me down. " Patient acknowledges that his behavior was impulsive and very dangerous. He also acknowleges the severity of his actions. Patient has two prior suicide attempt via cutting and hanging self. Most recent suicide attempt was in 2017. Patient is coherent and has insight into his actions. He denies thoughts or urges to hurt himself or others. Patient apologetic for actions and acknowledge that he shouldve spoken to staff before acting on his impulsive thoughts. Patient stated to ticket writer, " i was upset. It's been a long day. But i feel much better now. I don't want to hurt myself. I was just frustrated." Although patient is not suicidal at the moment, he will be placed on 1:1 for suicidal ideation due to the severity of his action. Pt. made aware of what 1:1 entails. Pt. is calmer and easily approachable. He is also compliant to his medication regime and is agreeable to accepting one time dose for vistaril for anxiety. D[employer]ified [employer] Farmer spoke to nursing staff concerning what occured and story was consistent with patient's narriative. Collaboration completed with nursing staff and security. Patient to be placed on 1:1 for safety. Patient to be re evaluated tomorrow morning. Total face to face time:: 60 Mental Status Exam - Mental Status Exam Alert and Oriented to: Time, Place, Person Cognitive Function: Good Patient Appearance: Well Groomed Mood: Hopeful Affect: Appropriate, Mood Congruent Patient Behavior: Appropriate, Cooperative Speech Pattern: Clear, Appropriate Voice Loudness: Normal Thought Process: Intact, Flight of Ideas Thought Disorder: Not Present Hallucinations: Denies Suicidal Ideation: Denies Homicidal Ideation: Denies Insight/Judgement: Poor Sleep: Fair Appetite: Fair Muscle strength/Tone: Normal Gait/Station: Normal Psychiatric Treatment Plan - Problem List (1) Alcohol dependence Current Visit: Yes (2) Cannabis dependence Current Visit: Yes (3) Cocaine dependence Current Visit: No Qualifiers: Substance use status: uncomplicated Qualified Code(s): F14.20 - Cocaine dependence, uncomplicated (4) Substance induced mood disorder Current Visit: Yes (5) Nicotine dependence Current Visit: No Qualifiers: Nicotine product type: cigarettes Substance use status: in withdrawal Qualified Code(s): F17.213 - Nicotine dependence, cigarettes, with withdrawal (6) Substance-induced sleep disorder Current Visit: Yes (7) Suicidal ideation Current Visit: Yes Comment: patient currently denies suicidal ideation but was placed on 1:1 after he removed the cord devnie with the thought to hang self due to his frustration of having a homosexual roomate.
[2018-07-16] MEDS ORDERED: hydrOXYzine PAMOATE 50 MG CAPSULE (FP) PO ONE (19:00)
[2018-07-16] MEDS: THIAMINE HCL 100 MG TABLET (FP) PO SCH (21:10)
[2018-07-16] MEDS: MIRTAZAPINE 15 MG TABLET (FP) PO SCH (21:10)
--- NOTE | 2018-07-17 09:31 | PN ---
Psychiatric Progress Note Vital Signs: Vital Signs Period Temp Pulse Resp BP Sys/Ashley Pulse Ox Last 24 Hr Date of Session: 07/17/18 Chief Complaint:: " re evaluation of 1:1." HPI: Patient admitted to for alcohol dependence. ROS: Significant for hypertension, HIV+ since 1993, history of childhood asthma , treatment for gonorrhea in 1984 and surgery left eye with loss of vision in 2015(hit by a baseball) Current Medications: Active Medications Generic Name Dose Route Start Last Admin Trade Name Freq PRN Reason Stop Dose Admin Acetaminophen 650 mg 07/15/18 12:09 Tylenol - PO Q4H PRN FEVER Al Hydroxide/Mg Hydroxide 30 ml 07/15/18 12:09 Mylanta Oral Suspension - PO Q6H PRN DYSPEPSIA Amoxicillin/Clavulanate Potassium 1 tab 07/15/18 22:00 07/16/18 21:10 Augmentin - 875mg Tablet PO 1 tab BID MICHELLE Administration Bacitracin 0.9 gm 07/15/18 22:00 07/16/18 21:10 Bacitracin - TP 0.9 gm BID MICHELLE Administration Eucalyptus/Menthol/Phenol/Sorbitol 1 each 07/15/18 12:09 Cepastat Lozenge - MM Q4H PRN SORE THROAT Guaifenesin 10 ml 07/15/18 12:09 Robitussin Dm - PO Q6H PRN COUGH Hydrochlorothiazide 25 mg 07/16/18 10:00 07/16/18 10:40 Hctz - PO 25 mg DAILY MICHELLE Administration Hydroxyzine Pamoate 50 mg 07/15/18 12:09 Vistaril - PO Q4H PRN AGITATION Ibuprofen 400 mg 07/15/18 12:09 Motrin - PO Q6H PRN Pain level 4-6 Loperamide HCl 4 mg 07/15/18 12:09 Imodium - PO Q6H PRN DIARRHEA Magnesium Citrate 300 ml 07/15/18 12:09 Citroma - PO Q48H PRN CONSTIPATION Magnesium Hydroxide 30 ml 07/15/18 12:09 Milk Of Magnesia - PO DAILY PRN CONSTIPATION Melatonin 5 mg 07/15/18 22:00 Melatonin PO HS PRN INSOMNIA Mirtazapine 45 mg 07/15/18 22:00 07/16/18 21:10 Remeron - PO 45 mg HS MICHELLE Administration Multivit/Folic Acid/Iron 1 tab 07/16/18 10:00 07/16/18 10:40 Vitamins (Sjr) - PO 1 tab DAILY MICHELLE Administration Pseudoephedrine/Triprolidine 1 combo 07/15/18 12:09 Actifed - PO TID PRN NASAL CONGESTION Thiamine HCl 100 mg 07/15/18 22:00 07/16/18 21:10 Vitamin B1 - PO 100 mg HS MICHELLE Administration Medication(s) Change(s): No. Current Side Effect: No Lab tests ordered: No Lab tests reviewed: Yes Provider note:: Patient seen by script writer this moring. Patient observed to be awake and in group this morning. Upon approach patient was calm, cooperative, and able to appropriately communicate with script writer. He stated to script writer, " I felt better this morning. I was really frustrated yesterday." Patient denies urges or thoughts to hurt himself. He states he can approach staff if becomes upset. Patient encouraged to accept vistaril 50mg every 4 hours for anxiety. He was educated on the benefits and side effects of medication. As per nursing staff patient was masturbating in front of staff watching him last night. Direct Support Worker able to speak to patient concerning of his inappropriate behavior of masterbating while a female staff was watching him. Pt. stated, " I know what i did. i should've not done it". As per nursing staff patient was able to follow redirections from staff after he was made aware of his inappropriate behavior. Currently, patient is motivated to continue with rehab and is compliant with his medication regime. Patient able to state his family members as his protective factors. Patient denies current urges or thoughts to hurt himself or others. 1:1 to be discontinued. Nursing staff informed. Total face to face time:: 35 Mental Status Exam - Mental Status Exam Alert and Oriented to: Time, Place, Person Cognitive Function: Good Patient Appearance: Well Groomed Mood: Hopeful, Euthymic Affect: Appropriate Patient Behavior: Appropriate Speech Pattern: Appropriate Voice Loudness: Normal Thought Process: Intact, Goal Oriented Thought Disorder: Not Present Hallucinations: Denies Suicidal Ideation: Denies Homicidal Ideation: Denies Insight/Judgement: Poor Sleep: Fair Appetite: Fair Muscle strength/Tone: Normal Gait/Station: Normal Psychiatric Treatment Plan - Problem List (1) Alcohol dependence Current Visit: Yes (2) Cannabis dependence Current Visit: Yes (3) Cocaine dependence Current Visit: No Qualifiers: Substance use status: uncomplicated Qualified Code(s): F14.20 - Cocaine dependence, uncomplicated (4) Substance induced mood disorder Current Visit: Yes (5) Nicotine dependence Current Visit: No Qualifiers: Nicotine product type: cigarettes Substance use status: in withdrawal Qualified Code(s): F17.213 - Nicotine dependence, cigarettes, with withdrawal (6) Substance-induced sleep disorder Current Visit: Yes
[2018-07-17] MEDS: hydrOXYzine PAMOATE 50 MG CAPSULE (FP) PO PRN ×2 (10:13→21:34)
[2018-07-17] MEDS: AMOX TR/POT CLAV 875MG/125MG TABLETS (FP) PO SCH ×2 (10:13→21:32)
[2018-07-17] MEDS: PRENATAL VITAMINS W/ FOLIC ACID TABLET (FP) PO SCH (10:13)
[2018-07-17] MEDS: HYDROCHLOROTHIAZIDE 12.5 MG CAPSULE (FP) PO SCH (10:13)
[2018-07-17] MEDS: BACITRACIN 0.9 GM PACKET TP SCH ×2 (10:13→21:32)
[2018-07-17] MEDS: NICOTINE 14 MG/24 HOURS TOPICAL PATCH TD SCH (12:15)
[2018-07-17] MEDS: THIAMINE HCL 100 MG TABLET (FP) PO SCH (21:32)
[2018-07-17] MEDS: MIRTAZAPINE 15 MG TABLET (FP) PO SCH (21:33)
[2018-07-18] MEDS: BACITRACIN 0.9 GM PACKET TP SCH ×2 (11:11→21:31)
[2018-07-18] MEDS: NICOTINE 14 MG/24 HOURS TOPICAL PATCH TD SCH (11:11)
[2018-07-18] MEDS: AMOX TR/POT CLAV 875MG/125MG TABLETS (FP) PO SCH ×2 (11:11→21:30)
[2018-07-18] MEDS: PRENATAL VITAMINS W/ FOLIC ACID TABLET (FP) PO SCH (11:11)
[2018-07-18] MEDS: HYDROCHLOROTHIAZIDE 12.5 MG CAPSULE (FP) PO SCH (11:11)
[2018-07-18] MEDS: hydrOXYzine PAMOATE 50 MG CAPSULE (FP) PO PRN (21:30)
[2018-07-18] MEDS: THIAMINE HCL 100 MG TABLET (FP) PO SCH (21:30)
[2018-07-18] MEDS: MIRTAZAPINE 15 MG TABLET (FP) PO SCH (21:30)
[2018-07-19] MEDS: HYDROCHLOROTHIAZIDE 12.5 MG CAPSULE (FP) PO SCH (09:56)
[2018-07-19] MEDS: AMOX TR/POT CLAV 875MG/125MG TABLETS (FP) PO SCH ×2 (09:56→21:45)
[2018-07-19] MEDS: NICOTINE 14 MG/24 HOURS TOPICAL PATCH TD SCH (09:56)
[2018-07-19] MEDS: PRENATAL VITAMINS W/ FOLIC ACID TABLET (FP) PO SCH (09:56)
[2018-07-19] MEDS: BACITRACIN 0.9 GM PACKET TP SCH ×2 (09:56→21:45)
[2018-07-19] MEDS: hydrOXYzine PAMOATE 50 MG CAPSULE (FP) PO PRN ×2 (09:57→21:45)
[2018-07-19] MEDS: MIRTAZAPINE 15 MG TABLET (FP) PO SCH (21:45)
[2018-07-19] MEDS: THIAMINE HCL 100 MG TABLET (FP) PO SCH (21:46)
--- NOTE | 2018-07-20 08:51 | PN ---
[facility] Progress Note (SOAP) Subjective: Patient states wants to filler picker his HIV medications and restart. Patient admits to not having taken medications for over a month. State wants to leave but is mandated into treatment by parole. C/o feeling very agitated. Objective: 07/20/18 08:47 Alert and oriented. Pacing. Vital Signs (72 hours) 07/17/18 07/18/18 07/18/18 10:00 00:30 03:30 Temperature Pulse Rate 72 Respiratory 18 18 Rate Blood Pressure 138/73 07/18/18 07/19/18 07/19/18 06:59 00:30 03:30 Temperature Pulse Rate Respiratory 18 18 18 Rate Blood Pressure 07/19/18 07/19/18 07/20/18 07:14 07:59 00:30 Temperature 98.1 F Pulse Rate 55 L Respiratory 18 18 18 Rate Blood Pressure 133/87 07/20/18 07/20/18 03:30 06:58 Temperature Pulse Rate Respiratory 18 18 Rate Blood Pressure Assessment: Non-compliance HIV management. Alcohol and cocaine remission. 07/20/18 08:52 Plan: Discussed need to evaluate HIV status prior to resumption of medications by primary provider. Discussed stress reduction techniques. To follow-up w/ psychiatry. Continue rehab.
[2018-07-20] MEDS: PRENATAL VITAMINS W/ FOLIC ACID TABLET (FP) PO SCH (09:57)
[2018-07-20] MEDS: AMOX TR/POT CLAV 875MG/125MG TABLETS (FP) PO SCH ×2 (09:57→21:29)
[2018-07-20] MEDS: BACITRACIN 0.9 GM PACKET TP SCH ×2 (09:59→22:56)
[2018-07-20] MEDS: HYDROCHLOROTHIAZIDE 12.5 MG CAPSULE (FP) PO SCH (09:59)
[2018-07-20] MEDS: hydrOXYzine PAMOATE 50 MG CAPSULE (FP) PO PRN ×2 (09:59→21:29)
[2018-07-20] MEDS: NICOTINE 14 MG/24 HOURS TOPICAL PATCH TD SCH (10:00)
[2018-07-20] MEDS: MIRTAZAPINE 15 MG TABLET (FP) PO SCH (21:29)
[2018-07-20] MEDS: THIAMINE HCL 100 MG TABLET (FP) PO SCH (21:29)
[2018-07-21 06:45] VITALS: TEMP 97.8
[2018-07-21] MEDS: AMOX TR/POT CLAV 875MG/125MG TABLETS (FP) PO SCH ×2 (09:43→21:43)
[2018-07-21] MEDS: NICOTINE 14 MG/24 HOURS TOPICAL PATCH TD SCH (09:43)
[2018-07-21] MEDS: PRENATAL VITAMINS W/ FOLIC ACID TABLET (FP) PO SCH (09:43)
[2018-07-21] MEDS: HYDROCHLOROTHIAZIDE 12.5 MG CAPSULE (FP) PO SCH (09:43)
[2018-07-21] MEDS: BACITRACIN 15 GM TUBE TOPICAL OINTMENT TP SCH ×2 (09:43→21:43)
--- NOTE | 2018-07-21 14:10 | PN ---
[facility] Progress Note Note: Vital Signs Temperature 97.8 F 07/21/18 06:44 Pulse Rate 64 07/21/18 06:44 Respiratory Rate 18 07/21/18 06:44 Blood Pressure 131/81 07/21/18 06:44 O2 Sat by Pulse Oximetry (%) c/o of sore on lower gum line. Reports has taken HIV meds 30 + days. AOx3 no distress, anxious ENNT WNL , + one Aphthous stomatitis no adventitious breath sounds full ROM ambulating in the unit HIV Aphthous stomatitis Plan: Benzocaine to area TP PRN Patient to follow up with HIV specialist upon discharge for continuation of care. Patient verbalizes understanding. continue to monitor
[2018-07-21] MEDS: BENZOCAINE 20 % GEL TUBE MM PRN (20:46)
[2018-07-21] MEDS: hydrOXYzine PAMOATE 50 MG CAPSULE (FP) PO PRN (21:42)
[2018-07-21] MEDS: THIAMINE HCL 100 MG TABLET (FP) PO SCH (21:42)
[2018-07-21] MEDS: MIRTAZAPINE 15 MG TABLET (FP) PO SCH (21:42)
[2018-07-22] MEDS: BENZOCAINE 20 % GEL TUBE MM PRN (07:55)
[2018-07-22] MEDS: NICOTINE 14 MG/24 HOURS TOPICAL PATCH TD SCH (10:21)
[2018-07-22] MEDS: PRENATAL VITAMINS W/ FOLIC ACID TABLET (FP) PO SCH (10:21)
[2018-07-22] MEDS: BACITRACIN 15 GM TUBE TOPICAL OINTMENT TP SCH ×2 (10:21→21:42)
[2018-07-22] MEDS: HYDROCHLOROTHIAZIDE 12.5 MG CAPSULE (FP) PO SCH (10:21)
[2018-07-22] MEDS: AMOX TR/POT CLAV 875MG/125MG TABLETS (FP) PO SCH (10:21)
[2018-07-22] MEDS: MIRTAZAPINE 15 MG TABLET (FP) PO SCH (21:41)
[2018-07-22] MEDS: hydrOXYzine PAMOATE 50 MG CAPSULE (FP) PO PRN (21:41)
[2018-07-22] MEDS: THIAMINE HCL 100 MG TABLET (FP) PO SCH (21:41)
[2018-07-23] MEDS: BACITRACIN 15 GM TUBE TOPICAL OINTMENT TP SCH ×2 (10:15→21:33)
[2018-07-23] MEDS: HYDROCHLOROTHIAZIDE 12.5 MG CAPSULE (FP) PO SCH (10:15)
[2018-07-23] MEDS: NICOTINE 14 MG/24 HOURS TOPICAL PATCH TD SCH (10:15)
[2018-07-23] MEDS: PRENATAL VITAMINS W/ FOLIC ACID TABLET (FP) PO SCH (10:15)
[2018-07-23] MEDS: BENZOCAINE 20 % GEL TUBE MM PRN (18:56)
[2018-07-23] MEDS: THIAMINE HCL 100 MG TABLET (FP) PO SCH (21:31)
[2018-07-23] MEDS: MIRTAZAPINE 15 MG TABLET (FP) PO SCH (21:32)
[2018-07-23] MEDS: IBUPROFEN 400 MG TABLET (FP) PO PRN (21:32)
[2018-07-23] MEDS: hydrOXYzine PAMOATE 50 MG CAPSULE (FP) PO PRN (21:32)
[2018-07-24] MEDS: PRENATAL VITAMINS W/ FOLIC ACID TABLET (FP) PO SCH (10:00)
[2018-07-24] MEDS: BACITRACIN 15 GM TUBE TOPICAL OINTMENT TP SCH ×2 (10:00→21:31)
[2018-07-24] MEDS: HYDROCHLOROTHIAZIDE 12.5 MG CAPSULE (FP) PO SCH (10:00)
[2018-07-24] MEDS: NICOTINE 14 MG/24 HOURS TOPICAL PATCH TD SCH (10:00)
[2018-07-24] MEDS: IBUPROFEN 400 MG TABLET (FP) PO PRN ×2 (10:01→21:31)
[2018-07-24] MEDS: hydrOXYzine PAMOATE 50 MG CAPSULE (FP) PO PRN (21:31)
[2018-07-24] MEDS: MIRTAZAPINE 15 MG TABLET (FP) PO SCH (21:31)
[2018-07-24] MEDS: THIAMINE HCL 100 MG TABLET (FP) PO SCH (21:32)
[2018-07-25] MEDS: HYDROCHLOROTHIAZIDE 12.5 MG CAPSULE (FP) PO SCH (10:09)
[2018-07-25] MEDS: IBUPROFEN 400 MG TABLET (FP) PO PRN ×2 (10:09→21:27)
[2018-07-25] MEDS: PRENATAL VITAMINS W/ FOLIC ACID TABLET (FP) PO SCH (10:10)
[2018-07-25] MEDS: NICOTINE 14 MG/24 HOURS TOPICAL PATCH TD SCH (10:10)
[2018-07-25] MEDS: BACITRACIN 15 GM TUBE TOPICAL OINTMENT TP SCH ×2 (10:20→21:27)
[2018-07-25] MEDS: THIAMINE HCL 100 MG TABLET (FP) PO SCH (21:26)
[2018-07-25] MEDS: hydrOXYzine PAMOATE 50 MG CAPSULE (FP) PO PRN (21:26)
[2018-07-25] MEDS: MIRTAZAPINE 15 MG TABLET (FP) PO SCH (21:27)
[2018-07-26] MEDS: PRENATAL VITAMINS W/ FOLIC ACID TABLET (FP) PO SCH (10:24)
[2018-07-26] MEDS: NICOTINE 14 MG/24 HOURS TOPICAL PATCH TD SCH (10:24)
[2018-07-26] MEDS: HYDROCHLOROTHIAZIDE 12.5 MG CAPSULE (FP) PO SCH (10:24)
[2018-07-26] MEDS: BACITRACIN 15 GM TUBE TOPICAL OINTMENT TP SCH ×2 (10:25→21:15)
[2018-07-26] MEDS: THIAMINE HCL 100 MG TABLET (FP) PO SCH (21:14)
[2018-07-26] MEDS: MIRTAZAPINE 15 MG TABLET (FP) PO SCH (21:15)
[2018-07-26] MEDS: BENZOCAINE 20 % GEL TUBE MM PRN (21:15)
[2018-07-27] MEDS: PRENATAL VITAMINS W/ FOLIC ACID TABLET (FP) PO SCH (10:42)
[2018-07-27] MEDS: HYDROCHLOROTHIAZIDE 25 MG TABLET (FP) PO SCH (10:42)
[2018-07-27] MEDS: NICOTINE 14 MG/24 HOURS TOPICAL PATCH TD SCH (10:43)
[2018-07-27] MEDS: BACITRACIN 15 GM TUBE TOPICAL OINTMENT TP SCH ×2 (10:43→21:01)
[2018-07-27] MEDS: MIRTAZAPINE 15 MG TABLET (FP) PO SCH (21:00)
[2018-07-27] MEDS: THIAMINE HCL 100 MG TABLET (FP) PO SCH (21:01)
[2018-07-28] MEDS: PRENATAL VITAMINS W/ FOLIC ACID TABLET (FP) PO SCH (10:08)
[2018-07-28] MEDS: HYDROCHLOROTHIAZIDE 25 MG TABLET (FP) PO SCH (10:08)
[2018-07-28] MEDS: NICOTINE 14 MG/24 HOURS TOPICAL PATCH TD SCH (10:09)
[2018-07-28] MEDS: BACITRACIN 15 GM TUBE TOPICAL OINTMENT TP SCH ×2 (10:09→21:42)
[2018-07-28 10:32] VITALS: BP 125/73; PULSE 75
--- NOTE | 2018-07-28 12:02 | PN ---
Psychiatric Progress Note Vital Signs: Vital Signs Period Temp Pulse Resp BP Sys/Ashley Pulse Ox Last 24 Hr 75 18-18 125/73 Date of Session: 07/28/18 Chief Complaint:: Discharge Note HPI: Patient addresing Alcohol, Cocaine and Cannabis Dependence comorbid with Nicotine Dependence, Substance-Induced Mood Disorder and Substance-Induced Sleep Disorder ROS: HIV, HTN, Visual loss left eye Current Medications: Active Medications Generic Name Dose Route Start Last Admin Trade Name Freq PRN Reason Stop Dose Admin Acetaminophen 650 mg 07/15/18 12:09 Tylenol - PO Q4H PRN FEVER Al Hydroxide/Mg Hydroxide 30 ml 07/15/18 12:09 Mylanta Oral Suspension - PO Q6H PRN DYSPEPSIA Bacitracin 1 applic 07/21/18 10:00 07/28/18 10:09 Bacitracin - TP Not Given BID MICHELLE Benzocaine 1 applic 07/21/18 14:04 07/26/18 21:15 Anbesol - MM 1 applic Q2H PRN Administration Aphthous stomatitis Eucalyptus/Menthol/Phenol/Sorbitol 1 each 07/15/18 12:09 Cepastat Lozenge - MM Q4H PRN SORE THROAT Guaifenesin 10 ml 07/15/18 12:09 07/23/18 21:32 Robitussin Dm - PO 10 ml Q6H PRN Administration COUGH Hydrochlorothiazide 25 mg 07/27/18 10:00 07/28/18 10:08 Hctz - PO 25 mg DAILY MICHELLE Administration Hydroxyzine Pamoate 50 mg 07/15/18 12:09 07/25/18 21:26 Vistaril - PO 50 mg Q4H PRN Administration AGITATION Ibuprofen 400 mg 07/15/18 12:09 07/25/18 21:27 Motrin - PO 400 mg Q6H PRN Administration Pain level 4-6 Loperamide HCl 4 mg 07/15/18 12:09 Imodium - PO Q6H PRN DIARRHEA Magnesium Citrate 300 ml 07/15/18 12:09 Citroma - PO Q48H PRN CONSTIPATION Magnesium Hydroxide 30 ml 07/15/18 12:09 Milk Of Magnesia - PO DAILY PRN CONSTIPATION Melatonin 5 mg 07/15/18 22:00 Melatonin PO HS PRN INSOMNIA Mirtazapine 45 mg 07/15/18 22:00 07/27/18 21:00 Remeron - PO 45 mg HS MCIHELLE Administration Nicotine 14 mg 07/17/18 11:00 07/28/18 10:09 Nicoderm Patch - TD Not Given DAILY MICHELLE Multivit/Folic Acid/Iron 1 tab 07/16/18 10:00 07/28/18 10:08 Vitamins (Sjr) - PO 1 tab DAILY MICHELLE Administration Pseudoephedrine/Triprolidine 1 combo 07/15/18 12:09 Actifed - PO TID PRN NASAL CONGESTION Thiamine HCl 100 mg 07/15/18 22:00 07/27/18 21:01 Vitamin B1 - PO 100 mg HS MICHELLE Administration Current Side Effect: No Lab tests ordered: Yes Lab tests reviewed: Yes Provider note:: Patient will complete this program on 07/29/18. He has met his treatment goals and will continue to address his issues at [facility] at [address] [place] [address]. Told conventional mortgage underwriter that he is not ready to give up using drug, he was sent here by parole and he has to find a way to use and not get caught. . He responded well to Remeron 45 mg po HS. Script for 30 days supply of that medication will be electronically transmitted to [facility] at [address] [place] [address]. He is stable for discharge on 07/29/18 Total face to face time:: 35 Mental Status Exam - Mental Status Exam Alert and Oriented to: Time, Place, Person Cognitive Function: Fair Patient Appearance: Well Groomed Mood: Hopeful, Euthymic Affect: Appropriate Patient Behavior: Cooperative Speech Pattern: Clear Voice Loudness: Normal Thought Process: Intact, Goal Oriented Thought Disorder: Not Present Hallucinations: Denies Suicidal Ideation: Denies Homicidal Ideation: Denies Insight/Judgement: Fair Sleep: Fair Appetite: Good Muscle strength/Tone: Normal Gait/Station: Normal Psychiatric Treatment Plan - Problem List (1) Alcohol dependence Current Visit: Yes (2) Cocaine dependence Current Visit: No Qualifiers: Substance use status: uncomplicated Qualified Code(s): F14.20 - Cocaine dependence, uncomplicated (3) Cannabis dependence Current Visit: Yes (4) Nicotine dependence Current Visit: No Qualifiers: Nicotine product type: cigarettes Substance use status: in withdrawal Qualified Code(s): F17.213 - Nicotine dependence, cigarettes, with withdrawal (5) Substance induced mood disorder Current Visit: Yes (6) Substance-induced sleep disorder Current Visit: Yes (7) HIV (human immunodeficiency virus infection) Current Visit: Yes (8) Visual loss, left eye Current Visit: No Initial treatment plan: Patient will be discharged today and referred to [facility] for outpatient treatment
[2018-07-28] MEDS: MIRTAZAPINE 15 MG TABLET (FP) PO SCH (21:41)
[2018-07-28] MEDS: THIAMINE HCL 100 MG TABLET (FP) PO SCH (21:41)
[2018-07-28] MEDS: hydrOXYzine PAMOATE 50 MG CAPSULE (FP) PO PRN (21:41)
--- NOTE | 2018-07-28 23:59 | PN ---
[facility] Progress Note Note: Pt scheduled to d/c'd in the morning.
--- NOTE | 2018-07-29 09:38 | PN ---
[facility] Progress Note Note: PT COMPLETED REHAB AND D/C'D TODAY. PT REPORTS HE HAS A PMD/ CLINIC, DR STAUFFER AT [facility] AT [address] PT REPORTS NONCOMPLIANCE WITH [facility] STATING 'I SOLD THEM'. PT STATES HE WILL FOLLOW UP WITH HIS PMD AND THAT HIS MEDICATIONS ARE WAITING FOR HIM AT HIS [facility]. PT IS ALERT O X 3. NAD. Vital Signs - 24 hr 07/28/18 07/29/18 07/29/18 10:31 00:30 03:30 Pulse Rate 75 Respiratory 18 18 Rate Blood Pressure 125/73 07/29/18 06:50 Pulse Rate Respiratory 18 Rate Blood Pressure PLAN:FOLLOW UP WITH AFTERCARE PLANNED WITH YOUR COUNSELOR. FOLLOW UP WITH PMD AT [facility] OF CORMOBID CONDITIONS.
[2018-07-29] MEDS: PRENATAL VITAMINS W/ FOLIC ACID TABLET (FP) PO SCH (10:48)
[2018-07-29] MEDS: HYDROCHLOROTHIAZIDE 25 MG TABLET (FP) PO SCH (10:48)
[2018-07-29] MEDS: NICOTINE 14 MG/24 HOURS TOPICAL PATCH TD SCH (10:48)
[2018-07-29] MEDS: BACITRACIN 15 GM TUBE TOPICAL OINTMENT TP SCH (10:48)
== END 2018-07-29 09:00 | disposition home or self-care (01) | DRG 772 ==
LOC: YASAS 11:18 → Y5N 12:13
PROVIDERS: ADMIT Psychiatry & Neurology Psychiatry; ATTEND Psychiatry & Neurology Psychiatry
PROC: HZ42ZZZ Group Counseling for Substance Abuse Treatment, Cognitive-Behavioral (ICD-10-PCS; principal; 2018-07-15)
DX: F10.20 Alcohol dependence, uncomplicated (principal); F14.20 Cocaine dependence, uncomplicated; F12.20 Cannabis dependence, uncomplicated; F17.213 Nicotine dependence, cigarettes, with withdrawal; F41.8 Other specified anxiety disorders; F19.24 Other psychoactive substance dependence with psychoactive substance-induced mood disorder; F19.282 Other psychoactive substance dependence with psychoactive substance-induced sleep disorder; I10 Essential (primary) hypertension; Z21 Asymptomatic human immunodeficiency virus [HIV] infection status; H54.62 Unqualified visual loss, left eye, normal vision right eye; K12.0 Recurrent oral aphthae; R45.851 Suicidal ideations; Z87.438 Personal history of other diseases of male genital organs; Z91.14 Patient's other noncompliance with medication regimen; Z87.898 Personal history of other specified conditions; Z91.5 Personal history of self-harm; Z59.0 Homelessness
CPT/HCPCS: 36415; 80053; 81003; 85027; 86593; 90688; G0008

== ENCOUNTER 2019-01-13 14:52 | Inpatient (IN) | payer OTHER ==
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
[2019-01-13] MEDS ORDERED: MAG HYDROX/AL HYDROX/SIMETH 30 ML UNIT-DOSE CUP PO PRN (18:29)
[2019-01-13] MEDS ORDERED: BISMUTH SUBSALICYLATE 524 MG/30 ML UD PO PRN (18:29)
[2019-01-13] MEDS ORDERED: ONDANSETRON *ODT* 4 MG TABLET SL PRN (18:29)
[2019-01-13] MEDS ORDERED: MENTHOL/PHENOL 1 EACH UD MM PRN (18:29)
[2019-01-13] MEDS ORDERED: MELATONIN 5 MG TABLETS PO PRN (18:29)
[2019-01-13] MEDS ORDERED: MAGNESIUM HYDROX 2400MG/30ML ORAL SUSPENSION 30 ML CUP PO PRN (18:29)
[2019-01-13] MEDS ORDERED: hydrOXYzine PAMOATE 25 MG CAPSULE (FP) PO PRN (18:29)
[2019-01-13] MEDS ORDERED: ACETAMINOPHEN 325 MG TABLET (FP) PO PRN ×2 (18:29)
[2019-01-13] MEDS ORDERED: MAGNESIUM CITRATE 300 ML BOTTLE PO PRN (18:29)
[2019-01-13] MEDS ORDERED: IBUPROFEN 400 MG TABLET (FP) PO PRN ×2 (18:29)
[2019-01-13] MEDS ORDERED: METHOCARBAMOL 500 MG TABLET PO PRN (18:29)
[2019-01-13] MEDS ORDERED: chlordiazePOXIDE HCL 25 MG CAPSULE PO PRN (18:36)
[2019-01-13] MEDS ORDERED: chlordiazePOXIDE HCL 25 MG CAPSULE PO ONE (19:00)
[2019-01-13] MEDS: THIAMINE HCL 100 MG TABLET (FP) PO SCH (22:22)
[2019-01-13] MEDS: chlordiazePOXIDE HCL 25 MG CAPSULE PO SCH (22:22)
[2019-01-14] MEDS: chlordiazePOXIDE HCL 25 MG CAPSULE PO SCH ×4 (07:19→22:31)
[2019-01-14 10:24] LABS: ALBUMIN 2.6 g/dl (3.4-5.0); ALK PHOS 84 U/L (45-117); ANION GAP 8 MMOL/L (8-16); BILIRUBIN,TOTAL 0.2 mg/dL (0.2-1); BLOOD UREA NITROGEN 14 mg/dL (7-18); CALCIUM 8.4 mg/dL (8.5-10.1); CHLORIDE 106 mmol/L (98-107); CO2 28 mmol/L (21-32); CREATININE 0.8 mg/dL (0.55-1.3); GLUCOSE,RANDOM 90 mg/dL (74-106); POTASSIUM 3.6 mmol/L (3.5-5.1); SGOT/AST 16 U/L (15-37); SGPT/ALT 16 U/L (13-61); SODIUM 142 mmol/L (136-145); TOT PROT 6.6 g/dl (6.4-8.2)
[2019-01-14] MEDS: PRENATAL VITAMINS W/ FOLIC ACID TABLET (FP) PO SCH (10:27)
[2019-01-14] MEDS: HYDROCHLOROTHIAZIDE 25 MG TABLET (FP) PO SCH (10:27)
[2019-01-14] MEDS: NICOTINE 21 MG/24 HOURS TOPICAL PATCH TD SCH (10:29)
[2019-01-14 10:47] LABS: HEMATOCRIT 38.9 % (35.4-49); MCH 29.5 pg (25.7-33.7); MCHC 33.5 g/dl (32.0-35.9); MEAN CELL VOLUME 88.2 fl (80-96); MEAN PLT VOLUME 7.6 fl (7.5-11.1); PLATELET COUNT 310 K/MM3 (134-434); RBC 4.41 M/mm3 (4.00-5.60); RDW 14.9 % (11.9-15.9); WHITE BLOOD COUNT 3.8 K/mm3 (4.0-10.0)
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
--- NOTE | 2019-01-14 16:14 | PN ---
[facility] CIWA - CIWA Score Nausea/Vomitin Muscle Tremors: 3 Anxiety: 3 Agitation: 1-Slight > Activity Paroxysmal Sweats: No Perspiration Orientation: 0-Oriented Tacttile Disturbances: 2-Mild Itch/Numbness/Burn Auditory Disturbances: 0-None Visual Disturbances: 0-None Headache: 2-Mild CIWA-Ar Total Score: 13 BHS Progress Note (SOAP) Subjective: Anxious, Tremors, Nausea, H/A. Objective: PATIENT A & O X 3. IN NO ACUTE DISTRESS. 01/14/19 16:13 Vital Signs Temperature 96.8 F L 01/14/19 13:44 Pulse Rate 78 01/14/19 13:44 Respiratory Rate 17 01/14/19 13:44 Blood Pressure 97/61 01/14/19 13:44 O2 Sat by Pulse Oximetry (%) Laboratory Tests 01/14/19 01/14/19 01/14/19 07:00 07:00 07:00 WBC 3.8 L RBC 4.41 Hgb 13.0 Hct 38.9 MCV 88.2 MCH 29.5 MCHC 33.5 RDW 14.9 Plt Count 310 MPV 7.6 Sodium 142 Potassium 3.6 Chloride 106 Carbon Dioxide 28 Anion Gap 8 BUN 14 Creatinine 0.8 Creat Clearance w eGFR 102.32 Random Glucose 90 Calcium 8.4 L Total Bilirubin 0.2 AST 16 ALT 16 Alkaline Phosphatase 84 Total Protein 6.6 Albumin 2.6 L RPR Titer Nonreactive LABS NOTED. Assessment: 01/14/19 16:13 WITHDRAWAL SYMPTOMS. Plan: CONTINUE DETOX.
[2019-01-14] MEDS: THIAMINE HCL 100 MG TABLET (FP) PO SCH (22:31)
[2019-01-14] MEDS: MIRTAZAPINE 15 MG TABLET (FP) PO SCH (22:31)
[2019-01-15] MEDS: chlordiazePOXIDE HCL 25 MG CAPSULE PO SCH ×3 (08:01→17:59)
[2019-01-15] MEDS: PRENATAL VITAMINS W/ FOLIC ACID TABLET (FP) PO SCH (10:19)
[2019-01-15] MEDS: NICOTINE 21 MG/24 HOURS TOPICAL PATCH TD SCH (10:19)
[2019-01-15] MEDS ORDERED: diphenhydrAMINE HCL 25 MG CAPSULE (FP) PO PRN (10:34)
[2019-01-15] MEDS ORDERED: COLLOIDAL OATMEAL 1 BAR EACH TP PRN (10:44)
[2019-01-15] MEDS: HYDROCHLOROTHIAZIDE 25 MG TABLET (FP) PO SCH (10:56)
[2019-01-15] MEDS: HYDROCORTISONE 1% TOPICAL CREAM 30 GM TUBE TP SCH ×3 (10:57→22:08)
--- NOTE | 2019-01-15 14:54 | PN ---
S CIWA - CIWA Score Nausea/Vomitin-No Nausea/No Vomiting Muscle Tremors: None Anxiety: 3 Agitation: 1-Slight > Activity Paroxysmal Sweats: No Perspiration Orientation: 0-Oriented Tacttile Disturbances: 3-Moderate Itch/Numb/Burn Auditory Disturbances: 0-None Visual Disturbances: 2-Mild Sensitivity Headache: 0-None Present CIWA-Ar Total Score: 9 BHS Progress Note (SOAP) Subjective: Anxious, Interrupted Sleep. Objective: PATIENT A & O X 3, OBSERVED AMBULATING ON UNIT. IN NO ACUTE DISTRESS. 01/15/19 14:54 Vital Signs Temperature 98.4 F 01/15/19 13:36 Pulse Rate 68 01/15/19 13:36 Respiratory Rate 18 01/15/19 13:36 Blood Pressure 98/66 01/15/19 13:36 O2 Sat by Pulse Oximetry (%) Laboratory Tests 01/14/19 01/14/19 01/14/19 07:00 07:00 07:00 WBC 3.8 L RBC 4.41 Hgb 13.0 Hct 38.9 MCV 88.2 MCH 29.5 MCHC 33.5 RDW 14.9 Plt Count 310 MPV 7.6 Sodium 142 Potassium 3.6 Chloride 106 Carbon Dioxide 28 Anion Gap 8 BUN 14 Creatinine 0.8 Creat Clearance w eGFR 102.32 Random Glucose 90 Calcium 8.4 L Total Bilirubin 0.2 AST 16 ALT 16 Alkaline Phosphatase 84 Total Protein 6.6 Albumin 2.6 L RPR Titer Nonreactive LABS NOTED. Assessment: 01/15/19 14:54 WITHDRAWAL SYMPTOMS. Plan: CONTINUE DETOX. INCREASE DAILY PO FLUID INTAKE. PATIENT REPORTS "BUMPS" AFFECTING BILATERAL ARMS, LEGS, AND GROIN AREA FOR LAST FEW WEEKS. PATIENT DENIES ANY KNOWN HISTORY OF RECENT CONTACT WITH ANY UNUSUAL SUBSTANCES / SURFACES. PATIENT REPORTS THAT HE FEELS ONLY SLIGHT ITCHING AT AFFECTED AREAS. MULTIPLE PAPULAR, NON-ERYTHEMATOUS BUMPS NOTED ON BILATERAL LEGS. NO UNUSUAL DISCHARGE NOTED AT AFFECTED SITES. HYDROCORTISONE CREAM ORDERED FOR AFFECTED AREAS. BENADRYL PO PRN FOR ITCHING. AVEENO SOAP.
[2019-01-15] MEDS: MIRTAZAPINE 15 MG TABLET (FP) PO SCH (22:09)
[2019-01-15] MEDS: chlordiazePOXIDE HCL 10 MG CAPSULE PO SCH (22:09)
[2019-01-15] MEDS: THIAMINE HCL 100 MG TABLET (FP) PO SCH (22:09)
[2019-01-15] MEDS ORDERED: chlordiazePOXIDE HCL 10 MG CAPSULE PO PRN (23:00)
[2019-01-16] MEDS: chlordiazePOXIDE HCL 10 MG CAPSULE PO SCH ×4 (07:21→22:51)
[2019-01-16] MEDS: HYDROCHLOROTHIAZIDE 25 MG TABLET (FP) PO SCH (10:41)
[2019-01-16] MEDS: PRENATAL VITAMINS W/ FOLIC ACID TABLET (FP) PO SCH (10:41)
[2019-01-16] MEDS: HYDROCORTISONE 1% TOPICAL CREAM 30 GM TUBE TP SCH ×2 (10:41→22:51)
[2019-01-16] MEDS: NICOTINE 21 MG/24 HOURS TOPICAL PATCH TD SCH (10:41)
--- NOTE | 2019-01-16 13:42 | PN ---
[facility] Progress Note (SOAP) Subjective: Anxious, Itching (Patient Reports that Skin lesions are slowly diminishing in size and frequency). Objective: PATIENT A & O X 3, OBSERVED AMBULATING ON UNIT. IN NO ACUTE DISTRESS. 01/16/19 13:41 Vital Signs Temperature 98.2 F 01/16/19 13:12 Pulse Rate 91 H 01/16/19 13:12 Respiratory Rate 20 01/16/19 13:12 Blood Pressure 122/79 01/16/19 13:12 O2 Sat by Pulse Oximetry (%) Laboratory Tests 01/14/19 01/14/19 01/14/19 07:00 07:00 07:00 WBC 3.8 L RBC 4.41 Hgb 13.0 Hct 38.9 MCV 88.2 MCH 29.5 MCHC 33.5 RDW 14.9 Plt Count 310 MPV 7.6 Sodium 142 Potassium 3.6 Chloride 106 Carbon Dioxide 28 Anion Gap 8 BUN 14 Creatinine 0.8 Creat Clearance w eGFR 102.32 Random Glucose 90 Calcium 8.4 L Total Bilirubin 0.2 AST 16 ALT 16 Alkaline Phosphatase 84 Total Protein 6.6 Albumin 2.6 L RPR Titer Nonreactive labs noted. Assessment: 01/16/19 13:42 WITHDRAWAL SYMPTOMS. Plan: CONTINUE DETOX. INCREASE DAILY PO FLUID INTAKE.
[2019-01-16] MEDS ORDERED: NICOTINE POLACRILEX 2 MG GUM BUC PRN (18:11)
[2019-01-16] MEDS: THIAMINE HCL 100 MG TABLET (FP) PO SCH (22:51)
[2019-01-16] MEDS: MIRTAZAPINE 15 MG TABLET (FP) PO SCH (22:51)
[2019-01-17] MEDS: NICOTINE 21 MG/24 HOURS TOPICAL PATCH TD SCH (10:38)
[2019-01-17] MEDS: HYDROCORTISONE 1% TOPICAL CREAM 30 GM TUBE TP SCH ×2 (10:38→22:34)
[2019-01-17] MEDS: chlordiazePOXIDE HCL 10 MG CAPSULE PO SCH ×2 (10:38→22:33)
[2019-01-17] MEDS: PRENATAL VITAMINS W/ FOLIC ACID TABLET (FP) PO SCH (10:38)
[2019-01-17] MEDS: HYDROCHLOROTHIAZIDE 25 MG TABLET (FP) PO SCH (13:20)
--- NOTE | 2019-01-17 16:06 | PN ---
S Progress Note (SOAP) Subjective: Anxious, interrupted sleep, feeling tired, sweating. Patient requested discharge tomorrow and admission to rehab. Objective: 01/17/19 16:05 Last Vital Signs Temp Pulse Resp BP Pulse Ox 98.0 F 83 18 138/74 01/17/19 15:44 01/17/19 15:44 01/17/19 15:44 01/17/19 15:44 Laboratory Tests 01/14/19 01/14/19 01/14/19 07:00 07:00 07:00 WBC 3.8 L RBC 4.41 Hgb 13.0 Hct 38.9 MCV 88.2 MCH 29.5 MCHC 33.5 RDW 14.9 Plt Count 310 MPV 7.6 Sodium 142 Potassium 3.6 Chloride 106 Carbon Dioxide 28 Anion Gap 8 BUN 14 Creatinine 0.8 Creat Clearance w eGFR 102.32 Random Glucose 90 Calcium 8.4 L Total Bilirubin 0.2 AST 16 ALT 16 Alkaline Phosphatase 84 Total Protein 6.6 Albumin 2.6 L RPR Titer Nonreactive Labs reviewed Assessment: 01/17/19 16:05 Withdrawal symptoms Plan: Continue detox Encouraged PO water hydration
[2019-01-17] MEDS: THIAMINE HCL 100 MG TABLET (FP) PO SCH (22:33)
[2019-01-17] MEDS: MIRTAZAPINE 15 MG TABLET (FP) PO SCH (22:33)
[2019-01-18] MEDS: PRENATAL VITAMINS W/ FOLIC ACID TABLET (FP) PO SCH (10:07)
[2019-01-18] MEDS: NICOTINE 21 MG/24 HOURS TOPICAL PATCH TD SCH (10:07)
[2019-01-18] MEDS: HYDROCHLOROTHIAZIDE 25 MG TABLET (FP) PO SCH (10:07)
[2019-01-18] MEDS: HYDROCORTISONE 1% TOPICAL CREAM 30 GM TUBE TP SCH (10:08)
--- NOTE | 2019-01-18 13:52 | DS ---
[facility] Detox Discharge Summary Admission Date: 01/13/19 Discharge Date: 01/18/19 - History Present History: Alcohol Dependence, Cocaine Dependence Additional Comments: PATIENT GOING TO [facility] ([place]) FOR AFTERCARE. PATIENT WAS DISCHARGED FROM DETOX UNIT TO BE TAKEN OVER TO REHAB UNIT IN STABLE MEDICAL CONDITION. Pertinent Past History: HTN, Asthma, History of Depression, H.I.V., Anxiety. - Physical Exam Results Vital Signs: Vital Signs Temperature 97.3 F L 01/18/19 09:26 Pulse Rate 94 H 01/18/19 09:26 Respiratory Rate 18 01/18/19 09:26 Blood Pressure 111/61 01/18/19 09:26 O2 Sat by Pulse Oximetry (%) Pertinent Admission Physical Exam Findings: WITHDRAWAL SYMPTOMS. Laboratory Tests 01/14/19 01/14/19 01/14/19 07:00 07:00 07:00 WBC 3.8 L RBC 4.41 Hgb 13.0 Hct 38.9 MCV 88.2 MCH 29.5 MCHC 33.5 RDW 14.9 Plt Count 310 MPV 7.6 Sodium 142 Potassium 3.6 Chloride 106 Carbon Dioxide 28 Anion Gap 8 BUN 14 Creatinine 0.8 Creat Clearance w eGFR 102.32 Random Glucose 90 Calcium 8.4 L Total Bilirubin 0.2 AST 16 ALT 16 Alkaline Phosphatase 84 Total Protein 6.6 Albumin 2.6 L RPR Titer Nonreactive LABS NOTED. - Treatment Hospital Course: Detox Protocol Followed, Detoxed Safely, Responded well, Discharged Condition Good, Rehab Referral Accepted Patient has Accepted a Rehab Referral to: [facility] ([place], [place]). - Medication Discharge Medications: Ambulatory Orders Dolutegravir Sodium [Tivicay] 50 mg PO DAILY 02/11/18 Emtricitabine/Tenofov Alafenam [Descovy 200-25 mg Tablet (Nf)] 1 each PO DAILY 02/11/18 Hydrochlorothiazide [Hctz -] 25 mg PO DAILY 02/11/18 Mirtazapine [Remeron [DO NOT STOCK]] 45 mg PO HS 02/11/18 Amox-Tr/K Cl [Augmentin - 875Mg Tablet] 1 tab PO BID 07/15/18 Folic Acid 1 mg PO DAILY 07/15/18 Mirtazapine [Remeron -] 45 mg PO HS #90 tablet 07/28/18 - Diagnosis (1) Alcohol dependence with uncomplicated withdrawal Current Visit: Yes Status: Acute (2) Anxiety and depression Current Visit: Yes Status: Acute (3) Substance induced mood disorder Current Visit: Yes Status: Acute (4) Substance-induced sleep disorder Current Visit: Yes Status: Acute (5) Cocaine dependence Current Visit: Yes Status: Acute Qualifiers: Substance use status: uncomplicated Qualified Code(s): F14.20 - Cocaine dependence, uncomplicated - AMA Did Patient Leave Against Medical Advice: No
[2019-01-18 13:54] VITALS: BP 144/77; PULSE 83; TEMP 97.9
== END 2019-01-18 15:31 | disposition other institution (70) | DRG 774 ==
LOC: YASAS 14:52 → Y3N 18:46 → Y6N 01-17 01:15
PROVIDERS: ADMIT Surgery; ATTEND Surgery
PROC: HZ2ZZZZ Detoxification Services for Substance Abuse Treatment (ICD-10-PCS; principal; 2019-01-13)
DX: F10.230 Alcohol dependence with withdrawal, uncomplicated (principal); F14.20 Cocaine dependence, uncomplicated; F17.210 Nicotine dependence, cigarettes, uncomplicated; F41.9 Anxiety disorder, unspecified; F32.9 Major depressive disorder, single episode, unspecified; F19.24 Other psychoactive substance dependence with psychoactive substance-induced mood disorder; F19.282 Other psychoactive substance dependence with psychoactive substance-induced sleep disorder; Z21 Asymptomatic human immunodeficiency virus [HIV] infection status; I10 Essential (primary) hypertension; L98.9 Disorder of the skin and subcutaneous tissue, unspecified; H54.40 Blindness, one eye, unspecified eye; Z91.14 Patient's other noncompliance with medication regimen; Z87.438 Personal history of other diseases of male genital organs; Z91.5 Personal history of self-harm; Z59.0 Homelessness
CPT/HCPCS: 36415; 80053; 85027; 86593

== ENCOUNTER 2019-01-18 15:45 | Inpatient (IN) | payer OTHER ==
--- NOTE | 2019-01-18 14:00 | HP ---
[facility] Rehab Assess/Revision - Admission History Admitted to Rehab from: [facility] Date of Admission to Rehab: 01/18/2019 - Vital signs Vital Signs: NOTED; STABLE. - Findings Detox History & Physical reviewed: Yes Concur with findings: Yes Comments/Additional Findings: PATIENT'S MEDICAL / MEDICATION HISTORY REVIEWED PRIOR TO DISCHARGE FROM DETOX UNIT. PATIENT WAS DISCHARGED FROM DETOX UNIT TO BE TAKEN OVER TO REHAB UNIT IN STABLE MEDICAL CONDITION. Inpatient Rehab Admission - Rehab Decision to Admit Inpatient rehab admission?: Yes - Initial Determination Are CD services needed?: Yes Free of communicable disease: Yes Not in need of hospitalization: Yes - Rehab Admission Criteria Previous failed treatment: Yes Poor recovery environment: Yes Comorbidities: Yes Lacks judgement: Yes Patient is meeting Inpatient Rehab admission criteria:: Yes
[~2019-01-18 15:45] MED LIST: ACETAMINOPHEN 325 MG TABLET (FP) PO PRN; LOPERAMIDE HCL 2 MG CAPSULE PO PRN; MAG HYDROX/AL HYDROX/SIMETH 30 ML UNIT-DOSE CUP PO PRN; MAGNESIUM CITRATE 300 ML BOTTLE PO PRN; MAGNESIUM HYDROX 2400MG/30ML ORAL SUSPENSION 30 ML CUP PO PRN; MENTHOL/PHENOL 1 EACH UD MM PRN; NICOTINE POLACRILEX 2 MG GUM BUC PRN; P-EPHED 60MG/TRIPROLIDI 2.5MG TABLET PO PRN; guaiFENesin 200 MG/10 ML 10 ML UNIT-DOSE CUPS PO PRN
[2019-01-18] MEDS: THIAMINE HCL 100 MG TABLET (FP) PO SCH (21:54)
[2019-01-18] MEDS: MELATONIN 5 MG TABLETS PO PRN (21:54)
[2019-01-18] MEDS: HYDROCORTISONE 1% TOPICAL CREAM 30 GM TUBE TP SCH (21:55)
[2019-01-19] MEDS: PRENATAL VITAMINS W/ FOLIC ACID TABLET (FP) PO SCH (10:37)
[2019-01-19] MEDS: NICOTINE 21 MG/24 HOURS TOPICAL PATCH TD SCH (10:37)
[2019-01-19] MEDS: HYDROCHLOROTHIAZIDE 25 MG TABLET (FP) PO SCH (10:37)
[2019-01-19] MEDS: HYDROCORTISONE 1% TOPICAL CREAM 30 GM TUBE TP SCH ×2 (10:39→21:50)
[2019-01-19] MEDS: THIAMINE HCL 100 MG TABLET (FP) PO SCH (21:49)
[2019-01-19] MEDS: MELATONIN 5 MG TABLETS PO PRN (21:50)
[2019-01-20] MEDS ORDERED: AMMONIUM LACTATE 12% LOTION 225 GM BOTTLE TP SCH (10:00)
[2019-01-20] MEDS: HYDROCHLOROTHIAZIDE 25 MG TABLET (FP) PO SCH (10:48)
[2019-01-20] MEDS: PRENATAL VITAMINS W/ FOLIC ACID TABLET (FP) PO SCH (10:48)
[2019-01-20] MEDS: NICOTINE 21 MG/24 HOURS TOPICAL PATCH TD SCH (10:48)
[2019-01-20] MEDS: HYDROCORTISONE 1% TOPICAL CREAM 30 GM TUBE TP SCH ×2 (10:48→21:07)
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
[2019-01-20] MEDS: MIRTAZAPINE 30 MG TABLET (FP) PO SCH (21:06)
[2019-01-20] MEDS: THIAMINE HCL 100 MG TABLET (FP) PO SCH (21:06)
[2019-01-21] MEDS: PRENATAL VITAMINS W/ FOLIC ACID TABLET (FP) PO SCH (10:14)
[2019-01-21] MEDS: NICOTINE 21 MG/24 HOURS TOPICAL PATCH TD SCH (10:14)
[2019-01-21] MEDS: HYDROCHLOROTHIAZIDE 25 MG TABLET (FP) PO SCH (10:14)
[2019-01-21] MEDS: HYDROCORTISONE 1% TOPICAL CREAM 30 GM TUBE TP SCH (10:15)
[2019-01-21] MEDS: MIRTAZAPINE 30 MG TABLET (FP) PO SCH (21:47)
[2019-01-21] MEDS: THIAMINE HCL 100 MG TABLET (FP) PO SCH (21:47)
[2019-01-22] MEDS: PRENATAL VITAMINS W/ FOLIC ACID TABLET (FP) PO SCH (11:11)
[2019-01-22] MEDS: HYDROCHLOROTHIAZIDE 25 MG TABLET (FP) PO SCH (11:11)
[2019-01-22] MEDS: NICOTINE 21 MG/24 HOURS TOPICAL PATCH TD SCH (11:12)
[2019-01-22] MEDS: AMMONIUM LACTATE 12% LOTION 225 GM BOTTLE TP SCH (12:44)
[2019-01-22] MEDS: COLLOIDAL OATMEAL 1 BAR EACH TP PRN (12:44)
[2019-01-22] MEDS: THIAMINE HCL 100 MG TABLET (FP) PO SCH (21:55)
[2019-01-22] MEDS: MIRTAZAPINE 30 MG TABLET (FP) PO SCH (21:55)
[2019-01-23] MEDS: NICOTINE 21 MG/24 HOURS TOPICAL PATCH TD SCH (10:23)
[2019-01-23] MEDS: HYDROCHLOROTHIAZIDE 25 MG TABLET (FP) PO SCH (10:23)
[2019-01-23] MEDS: AMMONIUM LACTATE 12% LOTION 225 GM BOTTLE TP SCH (10:23)
[2019-01-23] MEDS: PRENATAL VITAMINS W/ FOLIC ACID TABLET (FP) PO SCH (10:23)
[2019-01-23] MEDS: MIRTAZAPINE 30 MG TABLET (FP) PO SCH (21:41)
[2019-01-23] MEDS: MELATONIN 5 MG TABLETS PO PRN (21:41)
[2019-01-23] MEDS: THIAMINE HCL 100 MG TABLET (FP) PO SCH (21:41)
[2019-01-24] MEDS: NICOTINE 21 MG/24 HOURS TOPICAL PATCH TD SCH (10:46)
[2019-01-24] MEDS: PRENATAL VITAMINS W/ FOLIC ACID TABLET (FP) PO SCH (10:46)
[2019-01-24] MEDS: HYDROCHLOROTHIAZIDE 25 MG TABLET (FP) PO SCH (10:46)
[2019-01-24] MEDS: AMMONIUM LACTATE 12% LOTION 225 GM BOTTLE TP SCH (10:47)
[2019-01-24] MEDS: MIRTAZAPINE 30 MG TABLET (FP) PO SCH (21:42)
[2019-01-24] MEDS: THIAMINE HCL 100 MG TABLET (FP) PO SCH (21:42)
[2019-01-25] MEDS: PRENATAL VITAMINS W/ FOLIC ACID TABLET (FP) PO SCH (10:30)
[2019-01-25] MEDS: HYDROCHLOROTHIAZIDE 25 MG TABLET (FP) PO SCH (10:30)
[2019-01-25] MEDS: NICOTINE 21 MG/24 HOURS TOPICAL PATCH TD SCH (10:31)
[2019-01-25] MEDS: AMMONIUM LACTATE 12% LOTION 225 GM BOTTLE TP SCH (10:31)
--- NOTE | 2019-01-25 11:18 | PN ---
[facility] Progress Note Note: PT IS REQUESTING MAT WITH NALTREXONE/VIVITROL FOR ALCOHOL DEPENDENCE. PT HAS A HX OF 2 PTS/DAY USE OF VODKA AND $500/DAY CRACK USE. PMHX OF HTN AND HIV+(PT IS NONCOMPLIANT WITH ANTIRETROVIRAL MEDS). PT REPORTS HE WAS OFFERED MAT IN PREVIOUS TREATMENTS BUT REFUSED BECAUSE WANTED TO CONTINUE DRINKING. REPORTS IN LAST OFFER AT [facility], HE TOOK NALTREXONE TAB FOR TWO DOSES AND THAT HE STOPPED TREATMENT "BECAUSE COULD NOT DRINK"-DID NOT HAVE THE URGE TO DRINK AND WANTED TO GO BACK TO DRINKING. PT REPORTS HE IS ON [place]OLE AND DOES NOT WANT TO GO TO LONG-TERM SO WANTS TO BE IN TREATMENT. PT COMPLETED DETOX ON THEN REFERRED HERE TO REHAB. Home Medications Medication Instructions Recorded Dolutegravir Sodium [Tivicay] 50 mg PO DAILY 02/11/18 Emtricitabine/Tenofov Alafenam 1 each PO DAILY 02/11/18 [Descovy 200-25 mg Tablet (Nf)] Hydrochlorothiazide [Hctz -] 25 mg PO DAILY 02/11/18 Mirtazapine [Remeron [DO NOT 45 mg PO HS 02/11/18 STOCK]] Amox-Tr/K Cl [Augmentin - 875Mg 1 tab PO BID 07/15/18 Tablet] Folic Acid 1 mg PO DAILY 07/15/18 Mirtazapine [Remeron -] 45 mg PO HS #90 tablet 07/28/18 Vital Signs - 24 hr 01/25/19 01/25/19 01/25/19 00:30 03:30 07:26 Temperature 97.7 F Pulse Rate 68 Respiratory 18 18 16 Rate Blood Pressure 128/81 A:ALCOHOL DEPENDENCE WITH CRAVINGS PLAN:DISCUSSED WITH PT TO FOLLOW UP WITH HIS COUNSELOR,JERE DOHERTY TO DISCUSS AFTERCARE AND POSSIBLE MAT REFERRAL PROGRAMS. UDS TODAY FOLLOW UP WITH PT TO SIGN CONSENT AND START MAT. PT AGREEABLE TO POC
[2019-01-25] MEDS: THIAMINE HCL 100 MG TABLET (FP) PO SCH (22:09)
[2019-01-25] MEDS: MIRTAZAPINE 30 MG TABLET (FP) PO SCH (22:09)
[2019-01-26] MEDS: PRENATAL VITAMINS W/ FOLIC ACID TABLET (FP) PO SCH (10:30)
[2019-01-26] MEDS: NICOTINE 21 MG/24 HOURS TOPICAL PATCH TD SCH (10:30)
[2019-01-26] MEDS: HYDROCHLOROTHIAZIDE 25 MG TABLET (FP) PO SCH (10:30)
[2019-01-26] MEDS: AMMONIUM LACTATE 12% LOTION 225 GM BOTTLE TP SCH (10:30)
[2019-01-26] MEDS: COLLOIDAL OATMEAL 1 BAR EACH TP PRN (10:31)
[2019-01-26] MEDS: THIAMINE HCL 100 MG TABLET (FP) PO SCH (21:57)
[2019-01-26] MEDS: MIRTAZAPINE 30 MG TABLET (FP) PO SCH (21:57)
[2019-01-27] MEDS: PRENATAL VITAMINS W/ FOLIC ACID TABLET (FP) PO SCH (10:50)
[2019-01-27] MEDS: HYDROCHLOROTHIAZIDE 25 MG TABLET (FP) PO SCH (10:50)
[2019-01-27] MEDS: NICOTINE 21 MG/24 HOURS TOPICAL PATCH TD SCH (10:51)
[2019-01-27] MEDS: AMMONIUM LACTATE 12% LOTION 225 GM BOTTLE TP SCH (10:51)
[2019-01-27] MEDS: MIRTAZAPINE 30 MG TABLET (FP) PO SCH (21:46)
[2019-01-27] MEDS: THIAMINE HCL 100 MG TABLET (FP) PO SCH (21:46)
[2019-01-28 06:50] VITALS: TEMP 97.7
[2019-01-28] MEDS: PRENATAL VITAMINS W/ FOLIC ACID TABLET (FP) PO SCH (10:57)
[2019-01-28] MEDS: NICOTINE 21 MG/24 HOURS TOPICAL PATCH TD SCH (10:57)
[2019-01-28] MEDS: HYDROCHLOROTHIAZIDE 25 MG TABLET (FP) PO SCH (10:57)
[2019-01-28] MEDS: AMMONIUM LACTATE 12% LOTION 225 GM BOTTLE TP SCH (10:58)
[2019-01-28] MEDS: THIAMINE HCL 100 MG TABLET (FP) PO SCH (21:59)
[2019-01-28] MEDS: MIRTAZAPINE 30 MG TABLET (FP) PO SCH (21:59)
[2019-01-29] MEDS: PRENATAL VITAMINS W/ FOLIC ACID TABLET (FP) PO SCH (10:42)
[2019-01-29] MEDS: NICOTINE 21 MG/24 HOURS TOPICAL PATCH TD SCH (10:42)
[2019-01-29] MEDS: HYDROCHLOROTHIAZIDE 25 MG TABLET (FP) PO SCH (10:42)
[2019-01-29] MEDS: AMMONIUM LACTATE 12% LOTION 225 GM BOTTLE TP SCH (10:43)
[2019-01-29] MEDS: MIRTAZAPINE 30 MG TABLET (FP) PO SCH (21:43)
[2019-01-29] MEDS: THIAMINE HCL 100 MG TABLET (FP) PO SCH (21:43)
[2019-01-30] MEDS: AMMONIUM LACTATE 12% LOTION 225 GM BOTTLE TP SCH (10:40)
[2019-01-30] MEDS: HYDROCHLOROTHIAZIDE 25 MG TABLET (FP) PO SCH (10:40)
[2019-01-30] MEDS: NICOTINE 21 MG/24 HOURS TOPICAL PATCH TD SCH (10:40)
[2019-01-30] MEDS: PRENATAL VITAMINS W/ FOLIC ACID TABLET (FP) PO SCH (10:40)
--- NOTE | 2019-01-30 12:01 | PN ---
[facility] Progress Note Note: Psychiatry Attending's note (follow-up) : Approached by patient. Reason : insomnia. Mr Caceres is requesting 45 mg of mirtazapine. " It has been my regular dose for years. I need better sleep at night ". Chart reviewed. Medications revisited. Patient examined. Doing well. Motivated for treatment. In good control. Stable mental status. Sleep hygiene discussed in this session. Discontinue remeron 30 mg/hs. Ordered : remeron 45 mg po hs (at patient's request). Side effects/benefits reviewed with the patient. Consent (verbal) granted to
[2019-01-30] MEDS: MIRTAZAPINE 15 MG TABLET (FP) PO SCH (21:52)
[2019-01-30] MEDS: THIAMINE HCL 100 MG TABLET (FP) PO SCH (21:52)
[2019-01-31] MEDS: NICOTINE 21 MG/24 HOURS TOPICAL PATCH TD SCH (10:46)
[2019-01-31] MEDS: HYDROCHLOROTHIAZIDE 25 MG TABLET (FP) PO SCH (10:46)
[2019-01-31] MEDS: PRENATAL VITAMINS W/ FOLIC ACID TABLET (FP) PO SCH (10:46)
[2019-01-31] MEDS: AMMONIUM LACTATE 12% LOTION 225 GM BOTTLE TP SCH (10:47)
[2019-01-31] MEDS: MIRTAZAPINE 15 MG TABLET (FP) PO SCH (22:10)
[2019-01-31] MEDS: THIAMINE HCL 100 MG TABLET (FP) PO SCH (22:10)
[2019-02-01] MEDS: HYDROCHLOROTHIAZIDE 25 MG TABLET (FP) PO SCH (11:07)
[2019-02-01] MEDS: PRENATAL VITAMINS W/ FOLIC ACID TABLET (FP) PO SCH (11:07)
[2019-02-01] MEDS: NICOTINE 21 MG/24 HOURS TOPICAL PATCH TD SCH (11:08)
[2019-02-01] MEDS: AMMONIUM LACTATE 12% LOTION 225 GM BOTTLE TP SCH (11:09)
[2019-02-01] MEDS: MIRTAZAPINE 15 MG TABLET (FP) PO SCH (21:40)
[2019-02-01] MEDS: THIAMINE HCL 100 MG TABLET (FP) PO SCH (21:40)
[2019-02-02] MEDS: NICOTINE 21 MG/24 HOURS TOPICAL PATCH TD SCH (11:11)
[2019-02-02] MEDS: HYDROCHLOROTHIAZIDE 25 MG TABLET (FP) PO SCH (11:11)
[2019-02-02] MEDS: PRENATAL VITAMINS W/ FOLIC ACID TABLET (FP) PO SCH (11:11)
[2019-02-02] MEDS: AMMONIUM LACTATE 12% LOTION 225 GM BOTTLE TP SCH (11:11)
[2019-02-02] MEDS: MINERAL OIL/PETROLAT/WATER TOPICAL CREAM 113 GM JAR TP SCH (14:33)
[2019-02-02] MEDS: HYDROCORTISONE 1% TOPICAL OINT 30 GM TUBE TP SCH ×2 (14:33→21:55)
--- NOTE | 2019-02-02 16:04 | PN ---
[facility] Progress Note Note: PT C/O ITCHY RASH TO THIGHS. Vital Signs - 24 hr 02/02/19 02/02/19 02/02/19 00:30 03:30 06:41 Respiratory 18 18 18 Rate EXAM:DRY SCALY RASH ON THIGHS AND LOWER EXTREMITIES. A: EXCEMA PLAN:HYDROCORTISONE OINTMENT 1% APPLY TO AFFECTED AREAS DIRECTED.
[2019-02-02 17:34] VITALS: BP 135/83; PULSE 76
[2019-02-02] MEDS: COLLOIDAL OATMEAL 1 BAR EACH TP PRN (21:53)
[2019-02-02] MEDS: THIAMINE HCL 100 MG TABLET (FP) PO SCH (21:55)
[2019-02-02] MEDS: MIRTAZAPINE 15 MG TABLET (FP) PO SCH (21:55)
[2019-02-03] MEDS: MINERAL OIL/PETROLAT/WATER TOPICAL CREAM 113 GM JAR TP SCH (10:02)
[2019-02-03] MEDS: HYDROCORTISONE 1% TOPICAL OINT 30 GM TUBE TP SCH (10:03)
[2019-02-03] MEDS: AMMONIUM LACTATE 12% LOTION 225 GM BOTTLE TP SCH (10:03)
[2019-02-03] MEDS: HYDROCHLOROTHIAZIDE 25 MG TABLET (FP) PO SCH (10:03)
[2019-02-03] MEDS: NICOTINE 21 MG/24 HOURS TOPICAL PATCH TD SCH (10:03)
[2019-02-03] MEDS: PRENATAL VITAMINS W/ FOLIC ACID TABLET (FP) PO SCH (10:03)
--- NOTE | 2019-02-03 13:03 | PN ---
[facility] Progress Note Note: PT WAS DISCHARGED TODAY AFTER REHAB. PT MET WITH THE COUNSELLING TRACK GREASER, PAMELA CORONA AND HAS BEEN REFERRED TO [facility] AT [facility] ON [address], [place]. PT REPORTS HE HAS PCP AT [facility] FOR MEDICAL MANAGEMENT WITH "MS STAUFFER". PT IS ALERT O X 3. DENIES S/H/I. Vital Signs - 24 hr 02/03/19 02/03/19 02/03/19 00:30 03:30 06:45 Respiratory 18 18 18 Rate Vital Signs (72 hours) 02/01/19 02/01/19 02/01/19 00:30 03:30 06:45 Pulse Rate Respiratory 18 18 18 Rate Blood Pressure 02/02/19 02/02/19 02/02/19 00:30 03:30 06:41 Pulse Rate Respiratory 18 18 18 Rate Blood Pressure 02/02/19 02/03/19 02/03/19 10:00 00:30 03:30 Pulse Rate 76 Respiratory 18 18 Rate Blood Pressure 135/83 02/03/19 06:45 Pulse Rate Respiratory 18 Rate Blood Pressure NAD MEDICALLY STABLE PLAN:FOLLOW UP WITH [facility] RECOMMENDATION ON 02/04/19 AT 9:00 AM FOLLOW UP WITH MEDICAL MANAGEMENT WITH PCP AT [facility] WITHIN 1-2 WEEKS AFTER DISCHARGE.
== END 2019-02-03 11:13 | disposition home or self-care (01) | DRG 772 ==
LOC: YASAS 15:45 → Y5N 15:46
PROVIDERS: ADMIT Neuromusculoskeletal Medicine & OMM; ATTEND Neuromusculoskeletal Medicine & OMM
PROC: HZ42ZZZ Group Counseling for Substance Abuse Treatment, Cognitive-Behavioral (ICD-10-PCS; principal; 2019-01-18)
DX: F10.20 Alcohol dependence, uncomplicated (principal); F12.20 Cannabis dependence, uncomplicated; F17.213 Nicotine dependence, cigarettes, with withdrawal; L30.9 Dermatitis, unspecified; R63.4 Abnormal weight loss; Z21 Asymptomatic human immunodeficiency virus [HIV] infection status; H54.40 Blindness, one eye, unspecified eye; G47.00 Insomnia, unspecified; Z87.438 Personal history of other diseases of male genital organs; Z91.19 Patient's noncompliance with other medical treatment and regimen; Z91.5 Personal history of self-harm; Z59.0 Homelessness

== ENCOUNTER 2019-06-23 11:44 | Inpatient (IN) | payer OTHER ==
[2019-06-23 13:01] VITALS: BMI 19.9
--- NOTE | 2019-06-23 14:28 | HP ---
CIWA Score Nausea/Vomitin-Mild Nausea/No Vomiting Muscle Tremors: 3 Anxiety: 2 Agitation: 3 Paroxysmal Sweats: 1-Minimal Palms Moist Orientation: 0-Oriented Tacttile Disturbances: 0-None Auditory Disturbances: 0-None Visual Disturbances: 0-None Headache: 2-Mild CIWA-Ar Total Score: 12 - Admission Criteria OASAS Guidelines: Admission for Medically Managed Detox: Requires at least one of the followin. CIWA greater than 12 2. Seizures within the past 24 hours 3. Delirium tremens within the past 24 hours 4. Hallucinations within the past 24 hours 5. Acute intervention needed for co occurring medical disorder 6. Acute intervention needed for co occurring psychiatric disorder 7. Severe withdrawal that cannot be handled at a lower level of care (continued vomiting, continued diarrhea, abnormal vital signs) requiring intravenous medication and/or fluids 8. Admission ROS [facility] Chief Complaint: alcohol detox Allergies/Adverse Reactions: Allergies Allergy/AdvReac Type Severity Reaction Status Date / Time No Known Allergies Allergy Verified 06/23/19 12:46 History of Present Illness: Patient is a 48 yo M with a PMHx of HIV, depression, substance use disorder with cocaine, crack, K2, marijuana, and alcohol, presenting here for alcohol detox. Last drink last night, 3 nips. Drinks 5-6, 16oz beers daily, and when he has money he drinks 2-3 pints of liquor. blacked out a few days ago with zeferino dust. not alcohol. no hx of seizures. Smoke crack/cocaine daily, says he buys as much as he can buy with his money. Denies IV drug use. Unemployed. Lives in a Hotel, [facility]. Smokes half pack of cigarettes a day. - Ebola screening Have you traveled outside of the country in the last 21 days: No Have you had contact with anyone from an Ebola affected area: No - Review of Systems Constitutional: Loss of Appetite, Unintentional Wgt. Loss Respiratory: denies: Shortness of Breath Cardiac: denies: Chest Pain, Palpitations Patient History - Patient Medical History Hx Anemia: No Hx Asthma: Yes Hx Chronic Obstructive Pulmonary Disease (COPD): No Hx Cancer: No Hx Cardiac Disorders: Yes Hx Congestive Heart Failure: No Hx Hypertension: Yes Hx Hypercholesterolemia: No Hx Pacemaker: No HX Cerebrovascular Accident: No Hx Seizures: No Hx Dementia: No Hx Diabetes: No Hx Gastrointestinal Disorders: No Hx Liver Disease: No Hx Genitourinary Disorders: No Hx Sexually Transmitted Disorders: Yes Hx Renal Disease (ESRD): No Hx Thyroid Disease: No Hx Human Immunodeficiency Virus (HIV): Yes (since 1993) Hx Hepatitis C: No Hx Depression: Yes Hx Suicide Attempt: Yes Hx Bipolar Disorder: No Hx Schizophrenia: No - Patient Surgical History Past Surgical History: Yes Hx Neurologic Surgery: No Hx Cataract Extraction: Yes (in 2016 left post traumatic ,vision loss left) Hx Cardiac Surgery: No Hx Lung Surgery: No Hx Breast Surgery: No Hx Breast Biopsy: No Hx Abdominal Surgery: No Hx Appendectomy: No Hx Cholecystectomy: No Hx Genitourinary Surgery: No Hx Section: No Hx Orthopedic Surgery: No Anesthesia Reaction: No - PPD History Date: 02/13/18 Results: 0 - Smoking Cessation Smoking history: Current every day smoker Have you smoked in the past 12 months: Yes Aproximately how many cigarettes per day: 15 Cigars Per Day: 0 Hx Chewing Tobacco Use: No Initiated information on smoking cessation: Yes 'Breaking Loose' booklet given: 06/23/19 - Substances abused Crack Substance route: Smoking Frequency: Daily Amount used: $70 dollars Age of first use: 16 Date of last use: 06/23/19 Alcohol Substance route: Oral Frequency: Daily Amount used: 4 beers & 2 nips of vodka Age of first use: 23 Date of last use: 06/22/19 K2/Spice Substance route: Smoking Frequency: Daily Amount used: 2 sticks Age of first use: 48 Date of last use: 06/23/19 Marijuana/Hashish Substance route: Smoking Frequency: 1-2 times per week Amount used: 1/2 blunt Age of first use: 14 Date of last use: 06/22/19 Other Other (specify): Zeferino dusk Substance route: Smoking Frequency: 1-3 times last 30 days Amount used: 1 pull Age of first use: 48 Date of last use: 06/21/19 Family Disease History - Family Disease History Family Disease History: Diabetes: Mother, Heart Disease: Mother Admission Physical Exam BHS - Vital Signs Vital Signs: Vital Signs - 24 hr 06/23/19 12:46 Temperature 97.4 F L Pulse Rate 72 Respiratory 18 Rate Blood Pressure 149/77 - Physical General Appearance: Yes: No Apparent Distress Respiratory: Yes: No Respiratory Distress, No Accessory Muscle Use Cardiology: Yes: Regular Rhythm, Regular Rate Abdominal: Yes: Non Tender, Soft Extremities: No: Swelling - Diagnostic (1) Cocaine abuse Current Visit: Yes Status: Acute (2) Crack cocaine use Current Visit: Yes Status: Acute (3) Alcohol dependence with uncomplicated withdrawal Current Visit: No Status: Acute (4) Anxiety and depression Current Visit: No Status: Acute (5) Alcohol dependence Current Visit: No Status: Chronic (6) Cannabis dependence Current Visit: No Status: Chronic (7) Eczema Current Visit: No Status: Chronic Qualifiers: Eczema type: unspecified Qualified Code(s): L30.9 - Dermatitis, unspecified (8) HIV (human immunodeficiency virus infection) Current Visit: No Status: Chronic Qualifiers: HIV symptom status: unspecified Qualified Code(s): B20 - Human immunodeficiency virus [HIV] disease (9) Nicotine dependence Current Visit: No Status: Chronic Qualifiers: Nicotine product type: cigarettes Substance use status: in withdrawal Qualified Code(s): F17.213 - Nicotine dependence, cigarettes, with withdrawal (10) Non-compliance Current Visit: No Status: Chronic (11) Weight loss Current Visit: No Status: Chronic Breathalyzer - Breathalyzer Breathalyzer: 0 Urine Drug Screen - Test Device Lot number: [id number] Expiration date: 09/11/20 - Control Is test valid?: Yes - Results Drug screen NEGATIVE: No Urine drug screen results: BZO-Benzodiazepines Inpatient Rehab Admission - Rehab Decision to Admit Inpatient rehab admission?: No
--- NOTE | 2019-06-23 14:51 | PN ---
Teaching Attending Note Name of Resident: Cathleen Ewing ATTENDING PHYSICIAN STATEMENT I saw and evaluated the patient. I reviewed the resident's note and discussed the case with the resident. I agree with the resident's findings and plan as documented. SUBJECTIVE: 48 yo with HIV, not getting care, polysubstance use, here for alcohol detox. Last use yesterday. No h/o seizures. Smokes 1/2 day. Not on meds. Pt sent here from parole. OBJECTIVE: Vital Signs - 24 hr 06/23/19 12:46 Temperature 97.4 F L Pulse Rate 72 Respiratory 18 Rate Blood Pressure 149/77 alert and oriented ASSESSMENT AND PLAN: here for alcohol detox- start detox protocol with librium
[2019-06-23] MEDS ORDERED: hydrOXYzine PAMOATE 25 MG CAPSULE (FP) PO PRN (15:03)
[2019-06-23] MEDS ORDERED: BISMUTH SUBSALICYLATE 262 MG/15 ML BTL PO PRN (15:03)
[2019-06-23] MEDS ORDERED: MELATONIN 5 MG TABLETS PO PRN (15:03)
[2019-06-23] MEDS ORDERED: MAG HYDROX/AL HYDROX/SIMETH 30 ML UNIT-DOSE CUP PO PRN (15:03)
[2019-06-23] MEDS ORDERED: MENTHOL/PHENOL 1 EACH UD MM PRN (15:03)
[2019-06-23] MEDS ORDERED: chlordiazePOXIDE HCL 25 MG CAPSULE PO PRN (15:03)
[2019-06-23] MEDS ORDERED: ACETAMINOPHEN 325 MG TABLET (FP) PO PRN ×2 (15:03)
[2019-06-23] MEDS ORDERED: MAGNESIUM HYDROX 2400MG/30ML ORAL SUSPENSION 30 ML CUP PO PRN (15:03)
[2019-06-23] MEDS ORDERED: MAGNESIUM CITRATE 300 ML BOTTLE PO PRN (15:03)
[2019-06-23] MEDS ORDERED: IBUPROFEN 400 MG TABLET (FP) PO PRN (15:03)
[2019-06-23] MEDS ORDERED: METHOCARBAMOL 500 MG TABLET PO PRN (15:03)
[2019-06-23 17:04] LABS: HEMOGLOBIN 14.8 GM/dL (11.7-16.9); MCH 29.1 pg (25.7-33.7); MCHC 32.9 g/dl (32.0-35.9); MEAN CELL VOLUME 88.4 fl (80-96); MEAN PLT VOLUME 7.8 fl (7.5-11.1); PLATELET COUNT 329 K/MM3 (134-434); RBC 5.09 M/mm3 (4.00-5.60)
[2019-06-23 17:08] LABS: ALBUMIN 3.7 g/dl (3.4-5.0); BILIRUBIN,TOTAL 0.4 mg/dL (0.2-1); BLOOD UREA NITROGEN 22.2 mg/dL (7-18); CALCIUM 9.3 mg/dL (8.5-10.1); CREATININE 1.2 mg/dL (0.55-1.3); POTASSIUM 3.8 mmol/L (3.5-5.1)
[2019-06-23] MEDS: chlordiazePOXIDE HCL 25 MG CAPSULE PO SCH ×2 (17:35→22:53)
[2019-06-23] MEDS: NICOTINE 21 MG/24 HOURS TOPICAL PATCH TD SCH (17:35)
[2019-06-23] MEDS: THIAMINE HCL 100 MG TABLET (FP) PO SCH (22:53)
[2019-06-24] MEDS: chlordiazePOXIDE HCL 25 MG CAPSULE PO SCH ×4 (06:05→22:27)
[2019-06-24] MEDS: PRENATAL VITAMINS W/ FOLIC ACID TABLET (FP) PO SCH (10:26)
[2019-06-24] MEDS: NICOTINE 21 MG/24 HOURS TOPICAL PATCH TD SCH (10:26)
--- NOTE | 2019-06-24 11:36 | PN ---
S CIWA - CIWA Score Nausea/Vomitin-Mild Nausea/No Vomiting Muscle Tremors: 2 Anxiety: 4-Mod. Anxious/Guarded Agitation: 3 Paroxysmal Sweats: 2 Orientation: 0-Oriented Tacttile Disturbances: 1-Very Mild Itch/Numbness Auditory Disturbances: 0-None Visual Disturbances: 0-None Headache: 0-None Present CIWA-Ar Total Score: 13 BHS Progress Note (SOAP) Subjective: irritable tremor agitative requests training and development head for food preferences Objective: 06/24/19 11:35 Vital Signs Temperature 97.5 F L 06/24/19 09:16 Pulse Rate 68 06/24/19 09:16 Respiratory Rate 18 06/24/19 09:16 Blood Pressure 109/60 06/24/19 09:16 O2 Sat by Pulse Oximetry (%) Laboratory Last Values WBC 5.0 K/mm3 (4.0-10.0) 06/23/19 15:00 RBC 5.09 M/mm3 (4.00-5.60) 06/23/19 15:00 Hgb 14.8 GM/dL (11.7-16.9) 06/23/19 15:00 Hct 45.0 % (35.4-49) D 06/23/19 15:00 MCV 88.4 fl (80-96) 06/23/19 15:00 MCH 29.1 pg (25.7-33.7) 06/23/19 15:00 MCHC 32.9 g/dl (32.0-35.9) 06/23/19 15:00 RDW 14.0 % (11.9-15.9) 06/23/19 15:00 Plt Count 329 K/MM3 (134-434) 06/23/19 15:00 MPV 7.8 fl (7.5-11.1) 06/23/19 15:00 Sodium 140 mmol/L (136-145) 06/23/19 15:00 Potassium 3.8 mmol/L (3.5-5.1) 06/23/19 15:00 Chloride 105 mmol/L (98-107) 06/23/19 15:00 Carbon Dioxide 27 mmol/L (21-32) 06/23/19 15:00 Anion Gap 7 MMOL/L (8-16) L 06/23/19 15:00 BUN 22.2 mg/dL (7-18) H 06/23/19 15:00 Creatinine 1.2 mg/dL (0.55-1.3) 06/23/19 15:00 Est GFR (CKD-EPI)AfAm 81.23 06/23/19 15:00 Est GFR (CKD-EPI)NonAf 70.09 06/23/19 15:00 Random Glucose 123 mg/dL (74-106) H 06/23/19 15:00 Calcium 9.3 mg/dL (8.5-10.1) 06/23/19 15:00 Total Bilirubin 0.4 mg/dL (0.2-1) 06/23/19 15:00 AST 26 U/L (15-37) 06/23/19 15:00 ALT 31 U/L (13-61) 06/23/19 15:00 Alkaline Phosphatase 97 U/L (45-117) 06/23/19 15:00 Total Protein 8.0 g/dl (6.4-8.2) 06/23/19 15:00 Albumin 3.7 g/dl (3.4-5.0) 06/23/19 15:00 RPR Titer Nonreactive (NONREACTIVE) 06/23/19 15:00 lab noted increase oral fluid Assessment: 06/24/19 11:35 alcohol withdrawal sx Plan: continue librium detox regimen
--- NOTE | 2019-06-24 14:24 | CONSULT ---
[facility] Psychiatric Consult - Data Date of interview: 06/24/19 Admission source: [facility] Identifying data: Patient is a 48 year old single male, without children, unemployed, domiciled, and is supported by [employer]. This is one of multiple admissions for patient. Patient admitted to for alcohol and cocaine dependence. Substance Abuse History: - Smoking Cessation. Smoking history: Current every day smoker. Have you smoked in the past 12 months: Yes. Aproximately how many cigarettes per day: 15. Cigars Per Day: 0. Hx Chewing Tobacco Use: No. Initiated information on smoking cessation: Yes. 'Breaking Loose' booklet given : 06/23/19. - Substances abused. Crack. Substance route: Smoking. Frequency: Daily. Amount used: $70 dollars. Age of first use: 16. Date of last use: 06/23/19. Alcohol. Substance route: Oral. Frequency: Daily. Amount used: 4 beers & 2 nips of vodka. Age of first use: 23. Date of last use : 06/22/19. K2/Spice. Substance route: Smoking. Frequency: Daily. Amount used: 2 sticks. Age of first use: 48. Date of last use: 06/23/19. Marijuana/Hashish. Substance route: Smoking. Frequency: 1-2 times per week. Amount used: 1/2 blunt. Age of first use: 14. Date of last use: 06/22/19. Other. Other (specify): Zeferino hutton. Substance route: Smoking. Frequency: 1-3 times last 30 days. Amount used: 1 pull. Age of first use: 48. Date of last use: 06/21/19 Medical History: Significant for hypertension, HIV+ since 1993, history of childhood asthma, treatment for gonorrhea in 1984 and surgery left eye with loss of vision in 2016(hit by a baseball) Psychiatric History: Patient reports history of multiple psychiatric hospitalizations at [facility] for depression and self mutilation ( cutting his arm) during his time of incarceration in the . He also reports additional psychiatric hospitalizations at [facility]. 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 Mr. Caceres denies current outpatient psychiatric care. States he was prescribed mirtazapine 45mg but has not taken the medication in five months. At present, patient reports stable mood but is experiencing difficulty sleeping. Physical/Sexual Abuse/Trauma History: denies. Mental Status Exam - Mental Status Exam Alert and Oriented to: Time, Place, Person Cognitive Function: Good Patient Appearance: Well Groomed Mood: Euthymic Affect: Mood Congruent Patient Behavior: Cooperative Speech Pattern: Appropriate Voice Loudness: Normal Thought Process: Goal Oriented Thought Disorder: Not Present Hallucinations: Denies Suicidal Ideation: Denies Homicidal Ideation: Denies Insight/Judgement: Poor Sleep: Poorly Appetite: Fair Muscle strength/Tone: Normal Gait/Station: Normal Psychiatric Findings - Problem List ([place] 1, 2,3) (1) Substance-induced sleep disorder Current Visit: Yes Status: Acute (2) Alcohol dependence Current Visit: Yes Status: Acute Qualifiers: Substance use status: uncomplicated Qualified Code(s): F10.20 - Alcohol dependence, uncomplicated (3) Cocaine dependence Current Visit: Yes Status: Acute Qualifiers: Substance use status: uncomplicated Qualified Code(s): F14.20 - Cocaine dependence, uncomplicated - Initial Treatment Plan Initial Treatment Plan: Psychoeducation provided. Detoxification in progress. Will order Remeron 15mg HS. Benefits and side effects discussed. Verbal consent given.
[2019-06-24] MEDS: MIRTAZAPINE 15 MG TABLET (FP) PO SCH (22:27)
[2019-06-24] MEDS: THIAMINE HCL 100 MG TABLET (FP) PO SCH (22:27)
[2019-06-25] MEDS: chlordiazePOXIDE HCL 25 MG CAPSULE PO SCH ×4 (05:55→22:03)
[2019-06-25] MEDS: PRENATAL VITAMINS W/ FOLIC ACID TABLET (FP) PO SCH (10:42)
[2019-06-25] MEDS: NICOTINE 21 MG/24 HOURS TOPICAL PATCH TD SCH (10:43)
--- NOTE | 2019-06-25 16:37 | PN ---
[facility] CIWA - CIWA Score Nausea/Vomitin Muscle Tremors: 3 Anxiety: 3 Agitation: 3 Paroxysmal Sweats: 3 Orientation: 2-Disoriented Date<2 days Tacttile Disturbances: 0-None Auditory Disturbances: 0-None Visual Disturbances: 0-None Headache: 0-None Present CIWA-Ar Total Score: 16 BHS Progress Note (SOAP) Subjective: Nausea, Anxious, Tremors, Sweating. Objective: PATIENT A & O X 2 (UNCERTAIN ABOUT CURRENT DAY / DATE). PATIENT OBSERVED AMBULATING ON DETOX UNIT UNASSISTED. IN NO ACUTE DISTRESS. 06/25/19 16:36 Vital Signs Temperature 96.8 F L 06/25/19 13:09 Pulse Rate 81 06/25/19 13:09 Respiratory Rate 18 06/25/19 13:09 Blood Pressure 126/88 06/25/19 13:09 O2 Sat by Pulse Oximetry (%) Laboratory Tests 06/23/19 06/23/19 06/23/19 15:00 15:00 15:00 WBC 5.0 RBC 5.09 Hgb 14.8 Hct 45.0 D MCV 88.4 MCH 29.1 MCHC 32.9 RDW 14.0 Plt Count 329 MPV 7.8 Sodium 140 Potassium 3.8 Chloride 105 Carbon Dioxide 27 Anion Gap 7 L BUN 22.2 H Creatinine 1.2 Est GFR (CKD-EPI)AfAm 81.23 Est GFR (CKD-EPI)NonAf 70.09 Random Glucose 123 H Calcium 9.3 Total Bilirubin 0.4 AST 26 ALT 31 Alkaline Phosphatase 97 Total Protein 8.0 Albumin 3.7 RPR Titer Nonreactive LABS NOTED. Assessment: 06/25/19 16:37 WITHDRAWAL SYMPTOMS. Plan: CONTINUE DETOX. INCREASE DAILY PO WATER INTAKE.
[2019-06-25] MEDS: MIRTAZAPINE 15 MG TABLET (FP) PO SCH (22:03)
[2019-06-25] MEDS: THIAMINE HCL 100 MG TABLET (FP) PO SCH (22:03)
[2019-06-26] MEDS ORDERED: chlordiazePOXIDE HCL 10 MG CAPSULE PO PRN
[2019-06-26] MEDS: chlordiazePOXIDE HCL 10 MG CAPSULE PO SCH ×4 (08:08→22:00)
[2019-06-26] MEDS: PRENATAL VITAMINS W/ FOLIC ACID TABLET (FP) PO SCH (11:02)
[2019-06-26] MEDS: NICOTINE 21 MG/24 HOURS TOPICAL PATCH TD SCH (11:02)
--- NOTE | 2019-06-26 16:07 | PN ---
S CIWA - CIWA Score Nausea/Vomitin-No Nausea/No Vomiting Muscle Tremors: 2 Anxiety: 3 Agitation: 1-Slight > Activity Paroxysmal Sweats: 2 Orientation: 0-Oriented Tacttile Disturbances: 2-Mild Itch/Numbness/Burn Auditory Disturbances: 0-None Visual Disturbances: 0-None Headache: 0-None Present CIWA-Ar Total Score: 10 BHS Progress Note (SOAP) Subjective: Anxious, Fatigue, Sweating, Tremors. Patient reports That Current withdrawal Detox Symptoms in General Are Gradually Beginning to Diminish in Severity. Objective: PATIENT A & O X 3, OBSERVED AMBULATING ON DETOX UNIT UNASSISTED. IN NO ACUTE DISTRESS. 06/26/19 16:05 Vital Signs Temperature 98.0 F 06/26/19 13:25 Pulse Rate 76 06/26/19 13:25 Respiratory Rate 16 06/26/19 13:25 Blood Pressure 94/60 06/26/19 13:25 O2 Sat by Pulse Oximetry (%) Laboratory Tests 06/23/19 06/23/19 06/23/19 15:00 15:00 15:00 WBC 5.0 RBC 5.09 Hgb 14.8 Hct 45.0 D MCV 88.4 MCH 29.1 MCHC 32.9 RDW 14.0 Plt Count 329 MPV 7.8 Sodium 140 Potassium 3.8 Chloride 105 Carbon Dioxide 27 Anion Gap 7 L BUN 22.2 H Creatinine 1.2 Est GFR (CKD-EPI)AfAm 81.23 Est GFR (CKD-EPI)NonAf 70.09 Random Glucose 123 H Calcium 9.3 Total Bilirubin 0.4 AST 26 ALT 31 Alkaline Phosphatase 97 Total Protein 8.0 Albumin 3.7 RPR Titer Nonreactive LABS NOTED. Assessment: 06/26/19 16:06 WITHDRAWAL SYMPTOMS. Plan: CONTINUE DETOX. INCREASE DAILY PO WATER INTAKE.
[2019-06-26] MEDS: MIRTAZAPINE 15 MG TABLET (FP) PO SCH (22:00)
[2019-06-26] MEDS: THIAMINE HCL 100 MG TABLET (FP) PO SCH (22:00)
[2019-06-27] MEDS: chlordiazePOXIDE HCL 10 MG CAPSULE PO SCH ×2 (07:24→18:06)
[2019-06-27] MEDS: PRENATAL VITAMINS W/ FOLIC ACID TABLET (FP) PO SCH (10:08)
[2019-06-27] MEDS: NICOTINE 21 MG/24 HOURS TOPICAL PATCH TD SCH (10:08)
--- NOTE | 2019-06-27 12:22 | PN ---
[facility] CIWA - CIWA Score Nausea/Vomitin-No Nausea/No Vomiting Muscle Tremors: 2 Anxiety: 2 Agitation: 2 Paroxysmal Sweats: 1-Minimal Palms Moist Orientation: 0-Oriented Tacttile Disturbances: 0-None Auditory Disturbances: 0-None Visual Disturbances: 0-None Headache: 0-None Present CIWA-Ar Total Score: 7 S Progress Note (SOAP) Subjective: doing well with librium detox regimen ambulating on hallway discuss aftercare with staff prefers [facility] patient agrees return to infection disease specialist for hiv follow up bringing in medication list and lab report for follow up Objective: 06/27/19 12:23 Vital Signs Temperature 96.6 F L 06/27/19 09:07 Pulse Rate 76 06/27/19 09:07 Respiratory Rate 18 06/27/19 09:07 Blood Pressure 134/80 06/27/19 09:07 O2 Sat by Pulse Oximetry (%) Laboratory Last Values WBC 5.0 K/mm3 (4.0-10.0) 06/23/19 15:00 RBC 5.09 M/mm3 (4.00-5.60) 06/23/19 15:00 Hgb 14.8 GM/dL (11.7-16.9) 06/23/19 15:00 Hct 45.0 % (35.4-49) D 06/23/19 15:00 MCV 88.4 fl (80-96) 06/23/19 15:00 MCH 29.1 pg (25.7-33.7) 06/23/19 15:00 MCHC 32.9 g/dl (32.0-35.9) 06/23/19 15:00 RDW 14.0 % (11.9-15.9) 06/23/19 15:00 Plt Count 329 K/MM3 (134-434) 06/23/19 15:00 MPV 7.8 fl (7.5-11.1) 06/23/19 15:00 Sodium 140 mmol/L (136-145) 06/23/19 15:00 Potassium 3.8 mmol/L (3.5-5.1) 06/23/19 15:00 Chloride 105 mmol/L (98-107) 06/23/19 15:00 Carbon Dioxide 27 mmol/L (21-32) 06/23/19 15:00 Anion Gap 7 MMOL/L (8-16) L 06/23/19 15:00 BUN 22.2 mg/dL (7-18) H 06/23/19 15:00 Creatinine 1.2 mg/dL (0.55-1.3) 06/23/19 15:00 Est GFR (CKD-EPI)AfAm 81.23 06/23/19 15:00 Est GFR (CKD-EPI)NonAf 70.09 06/23/19 15:00 Random Glucose 123 mg/dL (74-106) H 06/23/19 15:00 Calcium 9.3 mg/dL (8.5-10.1) 06/23/19 15:00 Total Bilirubin 0.4 mg/dL (0.2-1) 06/23/19 15:00 AST 26 U/L (15-37) 06/23/19 15:00 ALT 31 U/L (13-61) 06/23/19 15:00 Alkaline Phosphatase 97 U/L (45-117) 06/23/19 15:00 Total Protein 8.0 g/dl (6.4-8.2) 06/23/19 15:00 Albumin 3.7 g/dl (3.4-5.0) 06/23/19 15:00 RPR Titer Nonreactive (NONREACTIVE) 06/23/19 15:00 lab noted Assessment: 06/27/19 12:23 alcohol withdrawal sx Plan: continue librium detox regimen
[2019-06-27] MEDS: THIAMINE HCL 100 MG TABLET (FP) PO SCH (22:11)
[2019-06-27] MEDS: MIRTAZAPINE 15 MG TABLET (FP) PO SCH (22:11)
[2019-06-28] MEDS ORDERED: chlordiazePOXIDE HCL 10 MG CAPSULE PO ONE (05:00)
[2019-06-28 09:14] VITALS: BP 147/86; PULSE 90; TEMP 98.4
--- NOTE | 2019-06-28 15:49 | DS ---
[facility] Detox Discharge Summary Admission Date: 06/23/19 Discharge Date: 06/28/19 - History Present History: Alcohol Dependence Additional Comments: did well with librium detox regimen no complication through out the detox stay seen by psychiatrist treated with remoron patient tolerate well patient is alert oriented x 3 denies dizziness no shortness of breath speech clearly coherently - Physical Exam Results Vital Signs: Vital Signs Temperature 98.4 F 06/28/19 09:14 Pulse Rate 90 06/28/19 09:14 Respiratory Rate 20 06/28/19 09:14 Blood Pressure 147/86 06/28/19 09:14 O2 Sat by Pulse Oximetry (%) Pertinent Admission Physical Exam Findings: alcohol withdrawal sx Laboratory Last Values WBC 5.0 K/mm3 (4.0-10.0) 06/23/19 15:00 RBC 5.09 M/mm3 (4.00-5.60) 06/23/19 15:00 Hgb 14.8 GM/dL (11.7-16.9) 06/23/19 15:00 Hct 45.0 % (35.4-49) D 06/23/19 15:00 MCV 88.4 fl (80-96) 06/23/19 15:00 MCH 29.1 pg (25.7-33.7) 06/23/19 15:00 MCHC 32.9 g/dl (32.0-35.9) 06/23/19 15:00 RDW 14.0 % (11.9-15.9) 06/23/19 15:00 Plt Count 329 K/MM3 (134-434) 06/23/19 15:00 MPV 7.8 fl (7.5-11.1) 06/23/19 15:00 Sodium 140 mmol/L (136-145) 06/23/19 15:00 Potassium 3.8 mmol/L (3.5-5.1) 06/23/19 15:00 Chloride 105 mmol/L (98-107) 06/23/19 15:00 Carbon Dioxide 27 mmol/L (21-32) 06/23/19 15:00 Anion Gap 7 MMOL/L (8-16) L 06/23/19 15:00 BUN 22.2 mg/dL (7-18) H 06/23/19 15:00 Creatinine 1.2 mg/dL (0.55-1.3) 06/23/19 15:00 Est GFR (CKD-EPI)AfAm 81.23 06/23/19 15:00 Est GFR (CKD-EPI)NonAf 70.09 06/23/19 15:00 Random Glucose 123 mg/dL (74-106) H 06/23/19 15:00 Calcium 9.3 mg/dL (8.5-10.1) 06/23/19 15:00 Total Bilirubin 0.4 mg/dL (0.2-1) 06/23/19 15:00 AST 26 U/L (15-37) 06/23/19 15:00 ALT 31 U/L (13-61) 06/23/19 15:00 Alkaline Phosphatase 97 U/L (45-117) 06/23/19 15:00 Total Protein 8.0 g/dl (6.4-8.2) 06/23/19 15:00 Albumin 3.7 g/dl (3.4-5.0) 06/23/19 15:00 RPR Titer Nonreactive (NONREACTIVE) 06/23/19 15:00 lab noted - Treatment Hospital Course: Detox Protocol Followed, Detoxed Safely, Responded well, Discharged Condition Good, Rehab Referral Accepted Patient has Accepted a Rehab Referral to: [facility] - Medication Discharge Medications: Ambulatory Orders Dolutegravir Sodium [Tivicay] 50 mg PO DAILY 02/11/18 Emtricitabine/Tenofov Alafenam [Descovy 200-25 mg Tablet (Nf)] 1 each PO DAILY 02/11/18 Mirtazapine [Remeron -] 45 mg PO HS 02/11/18 Hydrochlorothiazide [Hctz -] 25 mg PO DAILY #30 cap 06/27/19 - Diagnosis (1) Alcohol dependence with uncomplicated withdrawal Status: Acute (2) Substance induced mood disorder Status: Suspected (3) Eczema Status: Chronic Qualifiers: Eczema type: unspecified Qualified Code(s): L30.9 - Dermatitis, unspecified (4) HIV (human immunodeficiency virus infection) Status: Chronic Qualifiers: HIV symptom status: asymptomatic Qualified Code(s): Z21 - Asymptomatic human immunodeficiency virus [HIV] infection status (5) Insomnia Status: Chronic Qualifiers: Insomnia type: unspecified Qualified Code(s): G47.00 - Insomnia, unspecified (6) Weight loss Status: Acute - AMA Did Patient Leave Against Medical Advice: No CIWA Score - CIWA Score Nausea/Vomitin-No Nausea/No Vomiting Muscle Tremors: 1-None Visible, but [place] Anxiety: 1-Mildly Anxious Agitation: 1-Slight > Activity Paroxysmal Sweats: No Perspiration Orientation: 0-Oriented Tacttile Disturbances: 0-None Auditory Disturbances: 0-None Visual Disturbances: 0-None Headache: 0-None Present CIWA-Ar Total Score: 3
== END 2019-06-28 09:03 | disposition home or self-care (01) | DRG 774 ==
LOC: YASAS 11:44 → Y3N 15:44
PROVIDERS: ADMIT Surgery; ATTEND Surgery
PROC: HZ2ZZZZ Detoxification Services for Substance Abuse Treatment (ICD-10-PCS; principal; 2019-06-23)
DX: F10.230 Alcohol dependence with withdrawal, uncomplicated (principal); F14.20 Cocaine dependence, uncomplicated; F12.20 Cannabis dependence, uncomplicated; F19.20 Other psychoactive substance dependence, uncomplicated; F17.210 Nicotine dependence, cigarettes, uncomplicated; F19.282 Other psychoactive substance dependence with psychoactive substance-induced sleep disorder; F41.8 Other specified anxiety disorders; F32.9 Major depressive disorder, single episode, unspecified; Z21 Asymptomatic human immunodeficiency virus [HIV] infection status; I10 Essential (primary) hypertension; H54.62 Unqualified visual loss, left eye, normal vision right eye; L30.9 Dermatitis, unspecified; R63.4 Abnormal weight loss; Z68.1 Body mass index [BMI] 19.9 or less, adult; Z86.19 Personal history of other infectious and parasitic diseases; Z91.19 Patient's noncompliance with other medical treatment and regimen
CPT/HCPCS: 36415; 80053; 85027; 86593

== ENCOUNTER 2020-10-09 12:23 | Inpatient (IN) | payer OTHER ==
[2020-10-09 14:57] VITALS: BMI 20.3
[2020-10-09] MEDS ORDERED: ACETAMINOPHEN 325 MG TABLET (FP) PO PRN ×2 (15:24)
[2020-10-09] MEDS ORDERED: MAG HYDROX/AL HYDROX/SIMETH 30 ML UNIT-DOSE CUP PO PRN (15:24)
[2020-10-09] MEDS ORDERED: MAGNESIUM HYDROX 2400MG/30ML ORAL SUSPENSION 30 ML CUP PO PRN (15:24)
[2020-10-09] MEDS ORDERED: chlordiazePOXIDE HCL 25 MG CAPSULE PO PRN (15:24)
[2020-10-09] MEDS ORDERED: BISMUTH SUBSALICYLATE 524 MG/30 ML PO PRN (15:24)
[2020-10-09] MEDS ORDERED: MENTHOL/PHENOL 1 EACH UD MM PRN (15:24)
[2020-10-09] MEDS ORDERED: MAGNESIUM CITRATE 300 ML BOTTLE PO PRN (15:24)
[2020-10-09] MEDS ORDERED: ONDANSETRON *ODT* 4 MG TABLET SL PRN (15:24)
[2020-10-09] MEDS ORDERED: IBUPROFEN 400 MG TABLET (FP) PO PRN (15:24)
[2020-10-09] MEDS ORDERED: METHOCARBAMOL 500 MG TABLET PO PRN (15:24)
[2020-10-09] MEDS ORDERED: hydrOXYzine PAMOATE 25 MG CAPSULE (FP) PO SCH (18:00)
[2020-10-09 19:08] LABS: HEMATOCRIT 41.9 % (35.4-49); HEMOGLOBIN 14.3 GM/dL (11.7-16.9); MCH 30.2 pg (25.7-33.7); MEAN CELL VOLUME 88.9 fl (80-96); MEAN PLT VOLUME 7.3 fl (7.5-11.1); PLATELET COUNT 389 K/MM3 (134-434); RBC 4.72 M/mm3 (4.00-5.60); RDW 14.3 % (11.9-15.9); WHITE BLOOD COUNT 5.5 K/mm3 (4.0-10.0)
[2020-10-09] MEDS: chlordiazePOXIDE HCL 25 MG CAPSULE PO SCH ×2 (19:09→22:28)
[2020-10-09 19:15] LABS: ALBUMIN 3.7 g/dl (3.4-5.0); BLOOD UREA NITROGEN 15.6 mg/dL (7-18)
[2020-10-09 19:18] LABS: BILIRUBIN,TOTAL 0.2 mg/dL (0.2-1); CREATININE 1.4 mg/dL (0.55-1.3); TOT PROT 8.1 g/dl (6.4-8.2)
[2020-10-09] MEDS: THIAMINE HCL 100 MG TABLET (FP) PO SCH (22:28)
[2020-10-09] MEDS: MELATONIN 5 MG TABLETS PO SCH (22:28)
[2020-10-10] MEDS: chlordiazePOXIDE HCL 25 MG CAPSULE PO SCH ×4 (05:24→22:09)
[2020-10-10] MEDS ORDERED: NICOTINE 14 MG/24 HOURS TOPICAL PATCH TD SCH (10:00)
[2020-10-10] MEDS: PRENATAL VITAMINS W/ FOLIC ACID TABLET (FP) PO SCH (10:06)
[2020-10-10] MEDS: HYDROCHLOROTHIAZIDE 25 MG TABLET (FP) PO SCH (11:32)
[2020-10-10] MEDS: THIAMINE HCL 100 MG TABLET (FP) PO SCH (22:09)
[2020-10-10] MEDS: MIRTAZAPINE 15 MG TABLET (FP) PO SCH (22:09)
[2020-10-10] MEDS: MELATONIN 5 MG TABLETS PO SCH (22:09)
[2020-10-11] MEDS: chlordiazePOXIDE HCL 25 MG CAPSULE PO SCH ×4 (06:12→22:15)
[2020-10-11] MEDS: HYDROCHLOROTHIAZIDE 25 MG TABLET (FP) PO SCH (10:21)
[2020-10-11] MEDS: PRENATAL VITAMINS W/ FOLIC ACID TABLET (FP) PO SCH (10:21)
[2020-10-11] MEDS: NICOTINE 21 MG/24 HOURS TOPICAL PATCH TD SCH (10:23)
[2020-10-11] MEDS: THIAMINE HCL 100 MG TABLET (FP) PO SCH (22:15)
[2020-10-11] MEDS: MIRTAZAPINE 15 MG TABLET (FP) PO SCH (22:15)
[2020-10-11] MEDS: MELATONIN 5 MG TABLETS PO SCH (22:16)
[2020-10-12] MEDS ORDERED: chlordiazePOXIDE HCL 10 MG CAPSULE PO PRN
[2020-10-12] MEDS: chlordiazePOXIDE HCL 10 MG CAPSULE PO SCH ×4 (06:16→22:10)
[2020-10-12] MEDS: PRENATAL VITAMINS W/ FOLIC ACID TABLET (FP) PO SCH (10:26)
[2020-10-12] MEDS: HYDROCHLOROTHIAZIDE 25 MG TABLET (FP) PO SCH (10:26)
[2020-10-12] MEDS: NICOTINE 21 MG/24 HOURS TOPICAL PATCH TD SCH (10:27)
[2020-10-12] MEDS: MIRTAZAPINE 15 MG TABLET (FP) PO SCH (22:10)
[2020-10-12] MEDS: THIAMINE HCL 100 MG TABLET (FP) PO SCH (22:10)
[2020-10-12] MEDS: MELATONIN 5 MG TABLETS PO SCH (22:11)
[2020-10-13] MEDS: chlordiazePOXIDE HCL 10 MG CAPSULE PO SCH ×2 (05:22→17:39)
[2020-10-13] MEDS: PRENATAL VITAMINS W/ FOLIC ACID TABLET (FP) PO SCH (09:23)
[2020-10-13] MEDS: HYDROCHLOROTHIAZIDE 25 MG TABLET (FP) PO SCH (09:23)
[2020-10-13] MEDS: NICOTINE 21 MG/24 HOURS TOPICAL PATCH TD SCH (09:24)
[2020-10-13] MEDS: MELATONIN 5 MG TABLETS PO SCH (22:09)
[2020-10-13] MEDS: MIRTAZAPINE 15 MG TABLET (FP) PO SCH (22:10)
[2020-10-13] MEDS: THIAMINE HCL 100 MG TABLET (FP) PO SCH (22:10)
[2020-10-14] MEDS ORDERED: chlordiazePOXIDE HCL 10 MG CAPSULE PO ONE (05:00)
[2020-10-14] MEDS: PRENATAL VITAMINS W/ FOLIC ACID TABLET (FP) PO SCH (10:12)
[2020-10-14] MEDS: HYDROCHLOROTHIAZIDE 25 MG TABLET (FP) PO SCH (10:13)
[2020-10-14] MEDS: NICOTINE 21 MG/24 HOURS TOPICAL PATCH TD SCH (10:13)
[2020-10-14 13:10] VITALS: BP 153/87; PULSE 89; TEMP 98.6
== END 2020-10-14 15:27 | disposition other institution (70) | DRG 774 ==
LOC: YASAS 12:23 → Y3N 17:45
PROVIDERS: ADMIT Allergy & Immunology; ATTEND Allergy & Immunology
PROC: HZ2ZZZZ Detoxification Services for Substance Abuse Treatment (ICD-10-PCS; principal; 2020-10-09)
DX: F10.230 Alcohol dependence with withdrawal, uncomplicated (principal); F14.20 Cocaine dependence, uncomplicated; F19.20 Other psychoactive substance dependence, uncomplicated; F17.210 Nicotine dependence, cigarettes, uncomplicated; Z21 Asymptomatic human immunodeficiency virus [HIV] infection status; I10 Essential (primary) hypertension; Z91.5 Personal history of self-harm
CPT/HCPCS: 36415; 80053; 82962; 85027; 86780; 93005; 93010; C9803; U0003

== ENCOUNTER 2020-10-14 14:47 | Inpatient (IN) | payer OTHER ==
[2020-10-14] MEDS ORDERED: LOPERAMIDE HCL 2 MG CAPSULE PO PRN (16:02)
[2020-10-14] MEDS ORDERED: MAG HYDROX/AL HYDROX/SIMETH 30 ML UNIT-DOSE CUP PO PRN (16:02)
[2020-10-14] MEDS ORDERED: IBUPROFEN 400 MG TABLET (FP) PO PRN (16:02)
[2020-10-14] MEDS ORDERED: ACETAMINOPHEN 325 MG TABLET (FP) PO PRN (16:02)
[2020-10-14] MEDS ORDERED: MAGNESIUM HYDROX 2400MG/30ML ORAL SUSPENSION 30 ML CUP PO PRN (16:02)
[2020-10-14] MEDS ORDERED: MENTHOL/PHENOL 1 EACH UD MM PRN (16:02)
[2020-10-14] MEDS ORDERED: guaiFENesin 200 MG/10 ML 10 ML UNIT-DOSE CUPS PO PRN (16:02)
[2020-10-14] MEDS ORDERED: MAGNESIUM CITRATE 300 ML BOTTLE PO PRN (16:02)
[2020-10-14] MEDS ORDERED: P-EPHED 60MG/TRIPROLIDI 2.5MG TABLET PO PRN (16:02)
[2020-10-14] MEDS ORDERED: MASKS NR ONE (20:52)
[2020-10-14] MEDS: THIAMINE HCL 100 MG TABLET (FP) PO SCH (21:17)
[2020-10-14] MEDS: MIRTAZAPINE 15 MG TABLET (FP) PO SCH (21:17)
[2020-10-14] MEDS: MELATONIN 5 MG TABLETS PO SCH (21:17)
[2020-10-15] MEDS: NICOTINE 21 MG/24 HOURS TOPICAL PATCH TD SCH (10:06)
[2020-10-15] MEDS: HYDROCHLOROTHIAZIDE 25 MG TABLET (FP) PO SCH (10:06)
[2020-10-15] MEDS: PRENATAL VITAMINS W/ FOLIC ACID TABLET (FP) PO SCH (10:06)
[2020-10-15] MEDS: THIAMINE HCL 100 MG TABLET (FP) PO SCH (21:54)
[2020-10-15] MEDS: MIRTAZAPINE 15 MG TABLET (FP) PO SCH (21:54)
[2020-10-15] MEDS: MELATONIN 5 MG TABLETS PO SCH (21:55)
[2020-10-16] MEDS ORDERED: MASKS NR ONE (06:46)
[2020-10-16] MEDS: PRENATAL VITAMINS W/ FOLIC ACID TABLET (FP) PO SCH (09:40)
[2020-10-16] MEDS: HYDROCHLOROTHIAZIDE 25 MG TABLET (FP) PO SCH (09:40)
[2020-10-16] MEDS: NICOTINE 21 MG/24 HOURS TOPICAL PATCH TD SCH (09:42)
[2020-10-16] MEDS: THIAMINE HCL 100 MG TABLET (FP) PO SCH (21:16)
[2020-10-16] MEDS: MELATONIN 5 MG TABLETS PO SCH (21:16)
[2020-10-16] MEDS: MIRTAZAPINE 15 MG TABLET (FP) PO SCH (21:16)
[2020-10-17] MEDS: PRENATAL VITAMINS W/ FOLIC ACID TABLET (FP) PO SCH (09:30)
[2020-10-17] MEDS: HYDROCHLOROTHIAZIDE 25 MG TABLET (FP) PO SCH (09:30)
[2020-10-17] MEDS: NICOTINE 21 MG/24 HOURS TOPICAL PATCH TD SCH (09:31)
[2020-10-17] MEDS: MIRTAZAPINE 30 MG TABLET PO SCH (21:14)
[2020-10-17] MEDS: MELATONIN 5 MG TABLETS PO SCH (21:14)
[2020-10-17] MEDS: THIAMINE HCL 100 MG TABLET (FP) PO SCH (21:14)
[2020-10-18] MEDS: PRENATAL VITAMINS W/ FOLIC ACID TABLET (FP) PO SCH (09:32)
[2020-10-18] MEDS: HYDROCHLOROTHIAZIDE 25 MG TABLET (FP) PO SCH (09:32)
[2020-10-18] MEDS: NICOTINE 21 MG/24 HOURS TOPICAL PATCH TD SCH (09:37)
[2020-10-18] MEDS: THIAMINE HCL 100 MG TABLET (FP) PO SCH (21:11)
[2020-10-18] MEDS: MIRTAZAPINE 30 MG TABLET PO SCH (21:11)
[2020-10-18] MEDS: MELATONIN 5 MG TABLETS PO SCH (21:11)
[2020-10-19] MEDS: HYDROCHLOROTHIAZIDE 25 MG TABLET (FP) PO SCH (09:35)
[2020-10-19] MEDS: NICOTINE 21 MG/24 HOURS TOPICAL PATCH TD SCH (09:35)
[2020-10-19] MEDS: PRENATAL VITAMINS W/ FOLIC ACID TABLET (FP) PO SCH (09:35)
[2020-10-19] MEDS: THIAMINE HCL 100 MG TABLET (FP) PO SCH (21:32)
[2020-10-19] MEDS: MIRTAZAPINE 15 MG TABLET (FP) PO SCH (21:32)
[2020-10-19] MEDS: MELATONIN 5 MG TABLETS PO SCH (21:32)
[2020-10-20] MEDS: HYDROCHLOROTHIAZIDE 25 MG TABLET (FP) PO SCH (09:55)
[2020-10-20] MEDS: PRENATAL VITAMINS W/ FOLIC ACID TABLET (FP) PO SCH (09:55)
[2020-10-20] MEDS: NICOTINE 21 MG/24 HOURS TOPICAL PATCH TD SCH (09:56)
[2020-10-20] MEDS: EMTRICITABINE/TENOFOV ALAFENAM (DESCOVY) TABLET PO SCH (13:50)
[2020-10-20] MEDS: SULFAMETHOXAZOLE/TRIMETHOPRIM 800MG/160MG D.S. TABLET PO SCH (13:50)
[2020-10-20] MEDS: DOLUTEGRAVIR SODIUM 50 MG TABLET (NON-FORMULARY) PO SCH (13:51)
[2020-10-20] MEDS: MELATONIN 5 MG TABLETS PO SCH (21:08)
[2020-10-20] MEDS: THIAMINE HCL 100 MG TABLET (FP) PO SCH (21:08)
[2020-10-20] MEDS: MIRTAZAPINE 15 MG TABLET (FP) PO SCH (21:08)
[2020-10-21] MEDS: EMTRICITABINE/TENOFOV ALAFENAM (DESCOVY) TABLET PO SCH (09:36)
[2020-10-21] MEDS: SULFAMETHOXAZOLE/TRIMETHOPRIM 800MG/160MG D.S. TABLET PO SCH (09:36)
[2020-10-21] MEDS: PRENATAL VITAMINS W/ FOLIC ACID TABLET (FP) PO SCH (09:36)
[2020-10-21] MEDS: HYDROCHLOROTHIAZIDE 25 MG TABLET (FP) PO SCH (09:36)
[2020-10-21] MEDS: DOLUTEGRAVIR SODIUM 50 MG TABLET (NON-FORMULARY) PO SCH (09:36)
[2020-10-21] MEDS: NICOTINE 21 MG/24 HOURS TOPICAL PATCH TD SCH (09:37)
[2020-10-21] MEDS: THIAMINE HCL 100 MG TABLET (FP) PO SCH (21:15)
[2020-10-21] MEDS: MIRTAZAPINE 15 MG TABLET (FP) PO SCH (21:15)
[2020-10-21] MEDS: MELATONIN 5 MG TABLETS PO SCH (21:15)
[2020-10-22 06:36] VITALS: TEMP 97.1
[2020-10-22] MEDS: HYDROCHLOROTHIAZIDE 25 MG TABLET (FP) PO SCH (09:45)
[2020-10-22] MEDS: hydrOXYzine PAMOATE 25 MG CAPSULE (FP) PO PRN ×2 (09:45→21:12)
[2020-10-22] MEDS: SULFAMETHOXAZOLE/TRIMETHOPRIM 800MG/160MG D.S. TABLET PO SCH (09:45)
[2020-10-22] MEDS: PRENATAL VITAMINS W/ FOLIC ACID TABLET (FP) PO SCH (09:45)
[2020-10-22] MEDS: DOLUTEGRAVIR SODIUM 50 MG TABLET (NON-FORMULARY) PO SCH (09:46)
[2020-10-22] MEDS: EMTRICITABINE/TENOFOV ALAFENAM (DESCOVY) TABLET PO SCH (09:46)
[2020-10-22] MEDS: NICOTINE 21 MG/24 HOURS TOPICAL PATCH TD SCH (09:47)
[2020-10-22] MEDS: MELATONIN 5 MG TABLETS PO SCH (21:12)
[2020-10-22] MEDS: THIAMINE HCL 100 MG TABLET (FP) PO SCH (21:12)
[2020-10-22] MEDS: MIRTAZAPINE 15 MG TABLET (FP) PO SCH (21:12)
[2020-10-23] MEDS: HYDROCHLOROTHIAZIDE 25 MG TABLET (FP) PO SCH (09:31)
[2020-10-23] MEDS: EMTRICITABINE/TENOFOV ALAFENAM (DESCOVY) TABLET PO SCH (09:31)
[2020-10-23] MEDS: SULFAMETHOXAZOLE/TRIMETHOPRIM 800MG/160MG D.S. TABLET PO SCH (09:31)
[2020-10-23] MEDS: PRENATAL VITAMINS W/ FOLIC ACID TABLET (FP) PO SCH (09:31)
[2020-10-23] MEDS: NICOTINE 21 MG/24 HOURS TOPICAL PATCH TD SCH (09:32)
[2020-10-23] MEDS: DOLUTEGRAVIR SODIUM 50 MG TABLET (NON-FORMULARY) PO SCH (09:32)
[2020-10-23 15:50] VITALS: BP 136/79; PULSE 80
[2020-10-23] MEDS: hydrOXYzine PAMOATE 25 MG CAPSULE (FP) PO PRN (21:35)
[2020-10-23] MEDS: MIRTAZAPINE 15 MG TABLET (FP) PO SCH (21:35)
[2020-10-23] MEDS: MELATONIN 5 MG TABLETS PO SCH (21:35)
[2020-10-23] MEDS: THIAMINE HCL 100 MG TABLET (FP) PO SCH (21:35)
[2020-10-24] MEDS: HYDROCHLOROTHIAZIDE 25 MG TABLET (FP) PO SCH (09:34)
[2020-10-24] MEDS: SULFAMETHOXAZOLE/TRIMETHOPRIM 800MG/160MG D.S. TABLET PO SCH (09:34)
[2020-10-24] MEDS: EMTRICITABINE/TENOFOV ALAFENAM (DESCOVY) TABLET PO SCH (09:34)
[2020-10-24] MEDS: DOLUTEGRAVIR SODIUM 50 MG TABLET (NON-FORMULARY) PO SCH (09:34)
[2020-10-24] MEDS: NICOTINE 21 MG/24 HOURS TOPICAL PATCH TD SCH (09:35)
[2020-10-24] MEDS: PRENATAL VITAMINS W/ FOLIC ACID TABLET (FP) PO SCH (09:35)
== END 2020-10-24 10:01 | disposition home or self-care (01) | DRG 772 ==
LOC: YASAS 14:47 → Y5N 14:48
PROVIDERS: ADMIT Allergy & Immunology; ATTEND Allergy & Immunology
PROC: HZ42ZZZ Group Counseling for Substance Abuse Treatment, Cognitive-Behavioral (ICD-10-PCS; principal; 2020-10-14)
DX: F10.20 Alcohol dependence, uncomplicated (principal); F14.20 Cocaine dependence, uncomplicated; F19.20 Other psychoactive substance dependence, uncomplicated; F19.282 Other psychoactive substance dependence with psychoactive substance-induced sleep disorder; F19.24 Other psychoactive substance dependence with psychoactive substance-induced mood disorder; F41.9 Anxiety disorder, unspecified; F32.9 Major depressive disorder, single episode, unspecified; F51.05 Insomnia due to other mental disorder; F90.9 Attention-deficit hyperactivity disorder, unspecified type; F60.2 Antisocial personality disorder; Z21 Asymptomatic human immunodeficiency virus [HIV] infection status; I10 Essential (primary) hypertension; L30.9 Dermatitis, unspecified; M54.5 Low back pain; G89.29 Other chronic pain; Z98.49 Cataract extraction status, unspecified eye; Z91.5 Personal history of self-harm

== ENCOUNTER 2021-02-22 08:21 | Inpatient (IN) | payer OTHER ==
[2021-02-22 10:55] VITALS: BMI 20.2
[2021-02-22] MEDS ORDERED: METHOCARBAMOL 500 MG TABLET PO PRN (12:51)
[2021-02-22] MEDS ORDERED: IBUPROFEN 400 MG TABLET (FP) PO PRN (12:51)
[2021-02-22] MEDS ORDERED: NICOTINE POLACRILEX 2 MG GUM BUC PRN (12:51)
[2021-02-22] MEDS ORDERED: MENTHOL/PHENOL 1 EACH UD MM PRN (12:51)
[2021-02-22] MEDS ORDERED: ACETAMINOPHEN 325 MG TABLET (FP) PO PRN ×2 (12:51)
[2021-02-22] MEDS ORDERED: MAG HYDROX/AL HYDROX/SIMETH 30 ML UNIT-DOSE CUP PO PRN (12:51)
[2021-02-22] MEDS ORDERED: MAGNESIUM HYDROX 2400MG/30ML ORAL SUSPENSION 30 ML CUP PO PRN (12:51)
[2021-02-22] MEDS ORDERED: BISMUTH SUBSALICYLATE 524 MG/30 ML UD PO PRN (12:51)
[2021-02-22] MEDS ORDERED: ONDANSETRON *ODT* 4 MG TABLET SL PRN (12:51)
[2021-02-22] MEDS ORDERED: MAGNESIUM CITRATE 300 ML BOTTLE PO PRN (12:51)
[2021-02-22] MEDS ORDERED: diazePAM 5 MG TABLET PO PRN (12:51)
[2021-02-22] MEDS: PRENATAL VITAMINS W/ FOLIC ACID TABLET (FP) PO SCH (14:15)
[2021-02-22] MEDS: HYDROCHLOROTHIAZIDE 25 MG TABLET (FP) PO SCH (14:15)
[2021-02-22] MEDS: hydrOXYzine PAMOATE 25 MG CAPSULE (FP) PO SCH ×3 (14:15→23:57)
[2021-02-22] MEDS: NICOTINE 7 MG/24 HOURS TOPICAL PATCH TD SCH (14:15)
[2021-02-22 16:22] LABS: ALBUMIN 3.6 g/dl (3.4-5.0); BLOOD UREA NITROGEN 21.7 mg/dL (7-18)
[2021-02-22 16:23] LABS: CALCIUM 8.7 mg/dL (8.5-10.1)
[2021-02-22 16:24] LABS: HEMATOCRIT 40.1 % (35.4-49); HEMOGLOBIN 13.5 GM/dL (11.7-16.9); MCH 31.1 pg (25.7-33.7); MCHC 33.7 g/dl (32.0-35.9); MEAN CELL VOLUME 92.3 fl (80-96); MEAN PLT VOLUME 7.8 fl (7.5-11.1); PLATELET COUNT 270 K/MM3 (134-434); RBC 4.34 M/mm3 (4.00-5.60); RDW 14.5 % (11.9-15.9); WHITE BLOOD COUNT 3.5 K/mm3 (4.0-10.0)
[2021-02-22 16:25] LABS: CREATININE 1.2 mg/dL (0.55-1.3)
[2021-02-22 16:26] LABS: BILIRUBIN,TOTAL 0.6 mg/dL (0.2-1); TOT PROT 7.1 g/dl (6.4-8.2)
[2021-02-22] MEDS: diazePAM 5 MG TABLET PO SCH ×2 (17:37→23:56)
[2021-02-22] MEDS: MIRTAZAPINE 15 MG TABLET (FP) PO SCH (23:56)
[2021-02-22] MEDS: MELATONIN 5 MG TABLETS PO SCH (23:56)
[2021-02-22] MEDS: THIAMINE HCL 100 MG TABLET (FP) PO SCH (23:57)
[2021-02-23] MEDS: hydrOXYzine PAMOATE 25 MG CAPSULE (FP) PO SCH ×5 (06:17→22:25)
[2021-02-23] MEDS: diazePAM 5 MG TABLET PO SCH ×4 (06:18→22:25)
[2021-02-23] MEDS: NICOTINE 7 MG/24 HOURS TOPICAL PATCH TD SCH (10:25)
[2021-02-23] MEDS: PRENATAL VITAMINS W/ FOLIC ACID TABLET (FP) PO SCH (10:25)
[2021-02-23] MEDS: HYDROCHLOROTHIAZIDE 25 MG TABLET (FP) PO SCH (10:25)
[2021-02-23] MEDS: NICOTINE 21 MG/24 HOURS TOPICAL PATCH TD SCH (11:33)
[2021-02-23] MEDS: THIAMINE HCL 100 MG TABLET (FP) PO SCH (22:24)
[2021-02-23] MEDS: MIRTAZAPINE 15 MG TABLET (FP) PO SCH (22:24)
[2021-02-23] MEDS: MELATONIN 5 MG TABLETS PO SCH (22:24)
[2021-02-24] MEDS: hydrOXYzine PAMOATE 25 MG CAPSULE (FP) PO SCH ×5 (06:22→22:07)
[2021-02-24] MEDS: diazePAM 5 MG TABLET PO SCH ×3 (06:22→22:07)
[2021-02-24] MEDS: NICOTINE 21 MG/24 HOURS TOPICAL PATCH TD SCH (10:36)
[2021-02-24] MEDS: PRENATAL VITAMINS W/ FOLIC ACID TABLET (FP) PO SCH (10:36)
[2021-02-24] MEDS: HYDROCHLOROTHIAZIDE 25 MG TABLET (FP) PO SCH (10:38)
[2021-02-24] MEDS: THIAMINE HCL 100 MG TABLET (FP) PO SCH (22:07)
[2021-02-24] MEDS: MELATONIN 5 MG TABLETS PO SCH (22:07)
[2021-02-24] MEDS: MIRTAZAPINE 15 MG TABLET (FP) PO SCH (22:07)
[2021-02-25] MEDS: diazePAM 5 MG TABLET PO SCH ×2 (06:36→18:07)
[2021-02-25] MEDS: hydrOXYzine PAMOATE 25 MG CAPSULE (FP) PO SCH ×5 (06:37→22:25)
[2021-02-25] MEDS: HYDROCHLOROTHIAZIDE 25 MG TABLET (FP) PO SCH (10:30)
[2021-02-25] MEDS: PRENATAL VITAMINS W/ FOLIC ACID TABLET (FP) PO SCH (10:30)
[2021-02-25] MEDS: NICOTINE 21 MG/24 HOURS TOPICAL PATCH TD SCH (10:31)
[2021-02-25 14:07] LABS: SARS-CoV-2 NAA Not Detected (Not Detected)
[2021-02-25] MEDS: THIAMINE HCL 100 MG TABLET (FP) PO SCH (22:25)
[2021-02-25] MEDS: MIRTAZAPINE 15 MG TABLET (FP) PO SCH (22:25)
[2021-02-25] MEDS: MELATONIN 5 MG TABLETS PO SCH (22:26)
[2021-02-26] MEDS ORDERED: diazePAM 5 MG TABLET PO ONE (06:00)
[2021-02-26] MEDS: hydrOXYzine PAMOATE 25 MG CAPSULE (FP) PO SCH (07:13)
[2021-02-26 07:16] VITALS: BP 122/66; PULSE 71; TEMP 98.2
== END 2021-02-26 09:33 | disposition other institution (70) | DRG 774 ==
LOC: YASAS 08:21 → Y6N 12:57
PROVIDERS: ADMIT Allergy & Immunology; ATTEND Allergy & Immunology
PROC: HZ2ZZZZ Detoxification Services for Substance Abuse Treatment (ICD-10-PCS; principal; 2021-02-23)
DX: F10.230 Alcohol dependence with withdrawal, uncomplicated (principal); F14.20 Cocaine dependence, uncomplicated; F12.20 Cannabis dependence, uncomplicated; F17.210 Nicotine dependence, cigarettes, uncomplicated; F19.282 Other psychoactive substance dependence with psychoactive substance-induced sleep disorder; F19.24 Other psychoactive substance dependence with psychoactive substance-induced mood disorder; F32.9 Major depressive disorder, single episode, unspecified; Z21 Asymptomatic human immunodeficiency virus [HIV] infection status; D72.819 Decreased white blood cell count, unspecified; H54.62 Unqualified visual loss, left eye, normal vision right eye; L30.9 Dermatitis, unspecified; Z91.410 Personal history of adult physical and sexual abuse; Z98.42 Cataract extraction status, left eye
CPT/HCPCS: 36415; 80053; 85027; 86780; C9803; U0003; U0005

== ENCOUNTER 2021-06-26 08:45 | Inpatient (IN) | payer OTHER ==
[2021-06-26 10:30] VITALS: BMI 20.3
[2021-06-26] MEDS ORDERED: ONDANSETRON *ODT* 4 MG TABLET SL PRN (11:09)
[2021-06-26] MEDS ORDERED: IBUPROFEN 400 MG TABLET (FP) PO PRN (11:09)
[2021-06-26] MEDS ORDERED: NICOTINE 10 MG CARTRIDGE (INHALER) IH PRN (11:09)
[2021-06-26] MEDS ORDERED: METHOCARBAMOL 500 MG TABLET PO PRN (11:09)
[2021-06-26] MEDS ORDERED: MAG HYDROX/AL HYDROX/SIMETH 30 ML UNIT-DOSE CUP PO PRN (11:09)
[2021-06-26] MEDS ORDERED: MAGNESIUM CITRATE 300 ML BOTTLE PO PRN (11:09)
[2021-06-26] MEDS ORDERED: MAGNESIUM HYDROX 2400MG/30ML ORAL SUSPENSION 30 ML CUP PO PRN (11:09)
[2021-06-26] MEDS ORDERED: BISMUTH SUBSALICYLATE 524 MG/30 ML PO PRN (11:09)
[2021-06-26] MEDS ORDERED: MENTHOL/PHENOL 1 EACH UD MM PRN (11:09)
[2021-06-26] MEDS ORDERED: ACETAMINOPHEN 325 MG TABLET (FP) PO PRN ×2 (11:09)
[2021-06-26] MEDS: PRENATAL VITAMINS W/ FOLIC ACID TABLET (FP) PO SCH (12:24)
[2021-06-26] MEDS: hydrOXYzine PAMOATE 25 MG CAPSULE (FP) PO SCH ×3 (13:00→22:06)
[2021-06-26 16:20] LABS: HEMATOCRIT 42.4 % (35.4-49); HEMOGLOBIN 14.3 GM/dL (11.7-16.9); MCH 30.2 pg (25.7-33.7); MCHC 33.6 g/dl (32.0-35.9); MEAN PLT VOLUME 7.7 fl (7.5-11.1); PLATELET COUNT 287 10^3/uL (134-434); RBC 4.72 M/mm3 (4.00-5.60); RDW 15.4 % (11.9-15.9); WHITE BLOOD COUNT 3.8 K/mm3 (4.0-10.0)
[2021-06-26 16:25] LABS: ALBUMIN 3.6 g/dl (3.4-5.0); BLOOD UREA NITROGEN 20.2 mg/dL (7-18)
[2021-06-26 16:30] LABS: CREATININE 1.2 mg/dL (0.55-1.3)
[2021-06-26 16:31] LABS: TOT PROT 7.7 g/dl (6.4-8.2)
[2021-06-26 16:32] LABS: BILIRUBIN,TOTAL 0.9 mg/dL (0.2-1)
[2021-06-26] MEDS ORDERED: THIAMINE HCL 100 MG TABLET (FP) PO SCH (22:00)
[2021-06-26] MEDS ORDERED: MELATONIN 5 MG TABLETS PO SCH (22:00)
[2021-06-26] MEDS ORDERED: MIRTAZAPINE 30 MG TABLET PO SCH (22:00)
[2021-06-27] MEDS: hydrOXYzine PAMOATE 25 MG CAPSULE (FP) PO SCH ×2 (05:59→10:25)
[2021-06-27] MEDS ORDERED: DOLUTEGRAVIR SODIUM 50 MG TABLET (NON-FORMULARY) PO SCH (08:00)
[2021-06-27] MEDS ORDERED: EMTRICITABINE/TENOFOV ALAFENAM (DESCOVY) TABLET PO SCH (08:00)
[2021-06-27 09:23] VITALS: BP 117/79; PULSE 96; TEMP 96.9
[2021-06-27] MEDS ORDERED: HYDROCHLOROTHIAZIDE 25 MG TABLET (FP) PO SCH (10:00)
[2021-06-27] MEDS ORDERED: SULFAMETHOXAZOLE/TRIMETHOPRIM 800MG/160MG D.S. TABLET PO SCH (10:00)
[2021-06-27] MEDS: PRENATAL VITAMINS W/ FOLIC ACID TABLET (FP) PO SCH (10:24)
== END 2021-06-27 10:56 | disposition other institution (70) | DRG 774 ==
LOC: YASAS 08:45 → UNDOADMIN 10:46 → Y3N 10:46 → Y6N 15:01
PROVIDERS: ADMIT Allergy & Immunology; ATTEND Allergy & Immunology
PROC: HZ2ZZZZ Detoxification Services for Substance Abuse Treatment (ICD-10-PCS; principal; 2021-06-26)
DX: F10.20 Alcohol dependence, uncomplicated (principal); F14.20 Cocaine dependence, uncomplicated; F12.20 Cannabis dependence, uncomplicated; F17.210 Nicotine dependence, cigarettes, uncomplicated; F19.24 Other psychoactive substance dependence with psychoactive substance-induced mood disorder; F32.9 Major depressive disorder, single episode, unspecified; F41.8 Other specified anxiety disorders; I10 Essential (primary) hypertension; H54.62 Unqualified visual loss, left eye, normal vision right eye; R63.4 Abnormal weight loss; Z68.20 Body mass index [BMI] 20.0-20.9, adult; Z91.5 Personal history of self-harm; Z91.19 Patient's noncompliance with other medical treatment and regimen
CPT/HCPCS: 36415; 80053; 85027; 86780; C9803; Q0162; U0003; U0005

== ENCOUNTER 2021-06-27 11:05 | Inpatient (IN) | payer OTHER ==
[2021-06-27] MEDS ORDERED: guaiFENesin 200 MG/10 ML 10 ML UNIT-DOSE CUPS PO PRN (11:34)
[2021-06-27] MEDS ORDERED: MENTHOL/PHENOL 1 EACH UD MM PRN (11:34)
[2021-06-27] MEDS ORDERED: P-EPHED 60MG/TRIPROLIDI 2.5MG TABLET PO PRN (11:34)
[2021-06-27] MEDS ORDERED: IBUPROFEN 400 MG TABLET (FP) PO PRN (11:34)
[2021-06-27] MEDS ORDERED: MAGNESIUM CITRATE 300 ML BOTTLE PO PRN (11:34)
[2021-06-27] MEDS ORDERED: NICOTINE 10 MG CARTRIDGE (INHALER) IH PRN (11:34)
[2021-06-27] MEDS ORDERED: MAG HYDROX/AL HYDROX/SIMETH 30 ML UNIT-DOSE CUP PO PRN (11:34)
[2021-06-27] MEDS ORDERED: MAGNESIUM HYDROX 2400MG/30ML ORAL SUSPENSION 30 ML CUP PO PRN (11:34)
[2021-06-27] MEDS ORDERED: LOPERAMIDE HCL 2 MG CAPSULE PO PRN (11:34)
[2021-06-27] MEDS ORDERED: ACETAMINOPHEN 325 MG TABLET (FP) PO PRN (11:34)
[2021-06-27] MEDS: METHOCARBAMOL 500 MG TABLET PO SCH ×3 (14:12→21:14)
[2021-06-27] MEDS: hydrOXYzine PAMOATE 25 MG CAPSULE (FP) PO PRN ×2 (14:13→21:13)
[2021-06-27] MEDS: THIAMINE HCL 100 MG TABLET (FP) PO SCH (21:13)
[2021-06-27] MEDS: MIRTAZAPINE 15 MG TABLET (FP) PO SCH (21:13)
[2021-06-27] MEDS ORDERED: MIRTAZAPINE 15 MG TABLET (FP) PO SCH (22:00)
[2021-06-27] MEDS ORDERED: MELATONIN 5 MG TABLETS PO SCH (22:00)
[2021-06-28] MEDS ORDERED: PT OWN MED DRAWER 7, Y5N ONE (05:52)
[2021-06-28] MEDS: DOLUTEGRAVIR SODIUM 50 MG TABLET (NON-FORMULARY) PO SCH (07:00)
[2021-06-28] MEDS: EMTRICITABINE/TENOFOV ALAFENAM (DESCOVY) TABLET PO SCH (07:00)
[2021-06-28] MEDS: HYDROCHLOROTHIAZIDE 25 MG TABLET (FP) PO SCH (10:13)
[2021-06-28] MEDS: SULFAMETHOXAZOLE/TRIMETHOPRIM 800MG/160MG D.S. TABLET PO SCH (10:13)
[2021-06-28] MEDS: PRENATAL VITAMINS W/ FOLIC ACID TABLET (FP) PO SCH (10:13)
[2021-06-28] MEDS: NICOTINE 7 MG/24 HOURS TOPICAL PATCH TD SCH (10:13)
[2021-06-28] MEDS: METHOCARBAMOL 500 MG TABLET PO SCH ×4 (10:13→22:02)
[2021-06-28] MEDS: hydrOXYzine PAMOATE 25 MG CAPSULE (FP) PO PRN (10:14)
[2021-06-28] MEDS: MIRTAZAPINE 15 MG TABLET (FP) PO SCH (21:18)
[2021-06-28] MEDS: THIAMINE HCL 100 MG TABLET (FP) PO SCH (21:18)
[2021-06-29] MEDS ORDERED: PT OWN MED DRAWER 7, Y5N ONE (03:23)
[2021-06-29] MEDS: DOLUTEGRAVIR SODIUM 50 MG TABLET (NON-FORMULARY) PO SCH (07:55)
[2021-06-29] MEDS: EMTRICITABINE/TENOFOV ALAFENAM (DESCOVY) TABLET PO SCH (07:55)
[2021-06-29] MEDS: PRENATAL VITAMINS W/ FOLIC ACID TABLET (FP) PO SCH (10:16)
[2021-06-29] MEDS: SULFAMETHOXAZOLE/TRIMETHOPRIM 800MG/160MG D.S. TABLET PO SCH (10:16)
[2021-06-29] MEDS: HYDROCHLOROTHIAZIDE 25 MG TABLET (FP) PO SCH (10:16)
[2021-06-29] MEDS: NICOTINE 7 MG/24 HOURS TOPICAL PATCH TD SCH (10:16)
[2021-06-29] MEDS: METHOCARBAMOL 500 MG TABLET PO SCH ×4 (12:16→21:06)
[2021-06-29] MEDS: THIAMINE HCL 100 MG TABLET (FP) PO SCH (21:06)
[2021-06-29] MEDS: MIRTAZAPINE 15 MG TABLET (FP) PO SCH (21:06)
[2021-06-30] MEDS ORDERED: PT OWN MED DRAWER 7, Y5N ONE (05:39)
[2021-06-30] MEDS: DOLUTEGRAVIR SODIUM 50 MG TABLET (NON-FORMULARY) PO SCH (08:02)
[2021-06-30] MEDS: EMTRICITABINE/TENOFOV ALAFENAM (DESCOVY) TABLET PO SCH (08:02)
[2021-06-30] MEDS: NICOTINE 7 MG/24 HOURS TOPICAL PATCH TD SCH (09:53)
[2021-06-30] MEDS: PRENATAL VITAMINS W/ FOLIC ACID TABLET (FP) PO SCH (09:53)
[2021-06-30] MEDS: HYDROCHLOROTHIAZIDE 25 MG TABLET (FP) PO SCH (09:53)
[2021-06-30] MEDS: METHOCARBAMOL 500 MG TABLET PO SCH ×4 (09:53→21:05)
[2021-06-30] MEDS: SULFAMETHOXAZOLE/TRIMETHOPRIM 800MG/160MG D.S. TABLET PO SCH (09:53)
[2021-06-30] MEDS: MIRTAZAPINE 15 MG TABLET (FP) PO SCH (21:05)
[2021-06-30] MEDS: THIAMINE HCL 100 MG TABLET (FP) PO SCH (21:06)
[2021-07-01] MEDS ORDERED: PT OWN MED DRAWER 7, Y5N ONE (03:33)
[2021-07-01] MEDS: DOLUTEGRAVIR SODIUM 50 MG TABLET (NON-FORMULARY) PO SCH (09:57)
[2021-07-01] MEDS: HYDROCHLOROTHIAZIDE 25 MG TABLET (FP) PO SCH (09:58)
[2021-07-01] MEDS: EMTRICITABINE/TENOFOV ALAFENAM (DESCOVY) TABLET PO SCH (09:58)
[2021-07-01] MEDS: SULFAMETHOXAZOLE/TRIMETHOPRIM 800MG/160MG D.S. TABLET PO SCH (09:58)
[2021-07-01] MEDS: METHOCARBAMOL 500 MG TABLET PO SCH ×4 (09:58→21:23)
[2021-07-01] MEDS: PRENATAL VITAMINS W/ FOLIC ACID TABLET (FP) PO SCH (09:58)
[2021-07-01] MEDS: NICOTINE 7 MG/24 HOURS TOPICAL PATCH TD SCH (09:58)
[2021-07-01] MEDS: MIRTAZAPINE 15 MG TABLET (FP) PO SCH (21:23)
[2021-07-01] MEDS: THIAMINE HCL 100 MG TABLET (FP) PO SCH (21:23)
[2021-07-02] MEDS ORDERED: PT OWN MED DRAWER 7, Y5N ONE (05:24)
[2021-07-02] MEDS: EMTRICITABINE/TENOFOV ALAFENAM (DESCOVY) TABLET PO SCH (07:03)
[2021-07-02] MEDS: DOLUTEGRAVIR SODIUM 50 MG TABLET (NON-FORMULARY) PO SCH (07:03)
[2021-07-02] MEDS: PRENATAL VITAMINS W/ FOLIC ACID TABLET (FP) PO SCH (09:56)
[2021-07-02] MEDS: HYDROCHLOROTHIAZIDE 25 MG TABLET (FP) PO SCH (09:56)
[2021-07-02] MEDS: SULFAMETHOXAZOLE/TRIMETHOPRIM 800MG/160MG D.S. TABLET PO SCH (09:56)
[2021-07-02] MEDS: METHOCARBAMOL 500 MG TABLET PO SCH ×4 (09:57→21:42)
[2021-07-02] MEDS: hydrOXYzine PAMOATE 50 MG CAPSULE (FP) PO PRN (09:57)
[2021-07-02] MEDS: NICOTINE 7 MG/24 HOURS TOPICAL PATCH TD SCH (09:57)
[2021-07-02] MEDS: MIRTAZAPINE 15 MG TABLET (FP) PO SCH (21:40)
[2021-07-02] MEDS: THIAMINE HCL 100 MG TABLET (FP) PO SCH (21:41)
[2021-07-02] MEDS ORDERED: QUEtiapine FUMARATE 100 MG TABLET (FP) PO ONE (22:45)
[2021-07-03] MEDS ORDERED: PT OWN MED DRAWER 7, Y5N ONE (05:28)
[2021-07-03] MEDS: EMTRICITABINE/TENOFOV ALAFENAM (DESCOVY) TABLET PO SCH (09:05)
[2021-07-03] MEDS: DOLUTEGRAVIR SODIUM 50 MG TABLET (NON-FORMULARY) PO SCH (09:05)
[2021-07-03] MEDS: METHOCARBAMOL 500 MG TABLET PO SCH (09:06)
[2021-07-03] MEDS: PRENATAL VITAMINS W/ FOLIC ACID TABLET (FP) PO SCH (09:06)
[2021-07-03] MEDS: SULFAMETHOXAZOLE/TRIMETHOPRIM 800MG/160MG D.S. TABLET PO SCH (09:06)
[2021-07-03] MEDS: NICOTINE 7 MG/24 HOURS TOPICAL PATCH TD SCH (09:06)
[2021-07-03] MEDS: HYDROCHLOROTHIAZIDE 25 MG TABLET (FP) PO SCH (09:06)
[2021-07-03] MEDS: QUEtiapine FUMARATE 50 MG TABLET PO SCH (21:03)
[2021-07-03] MEDS: THIAMINE HCL 100 MG TABLET (FP) PO SCH (21:03)
[2021-07-04] MEDS ORDERED: PT OWN MED DRAWER 7, Y5N ONE (05:44)
[2021-07-04] MEDS: EMTRICITABINE/TENOFOV ALAFENAM (DESCOVY) TABLET PO SCH (07:02)
[2021-07-04] MEDS: DOLUTEGRAVIR SODIUM 50 MG TABLET (NON-FORMULARY) PO SCH (07:02)
[2021-07-04] MEDS: HYDROCHLOROTHIAZIDE 25 MG TABLET (FP) PO SCH (10:17)
[2021-07-04] MEDS: hydrOXYzine PAMOATE 50 MG CAPSULE (FP) PO PRN (10:17)
[2021-07-04] MEDS: NICOTINE 7 MG/24 HOURS TOPICAL PATCH TD SCH (10:17)
[2021-07-04] MEDS: SULFAMETHOXAZOLE/TRIMETHOPRIM 800MG/160MG D.S. TABLET PO SCH (10:17)
[2021-07-04] MEDS: PRENATAL VITAMINS W/ FOLIC ACID TABLET (FP) PO SCH (10:18)
[2021-07-04] MEDS: QUEtiapine FUMARATE 50 MG TABLET PO SCH (21:35)
[2021-07-04] MEDS: THIAMINE HCL 100 MG TABLET (FP) PO SCH (21:35)
[2021-07-05] MEDS ORDERED: PT OWN MED DRAWER 7, Y5N ONE (03:40)
[2021-07-05 06:47] VITALS: TEMP 97.3
[2021-07-05] MEDS: DOLUTEGRAVIR SODIUM 50 MG TABLET (NON-FORMULARY) PO SCH (07:52)
[2021-07-05] MEDS: EMTRICITABINE/TENOFOV ALAFENAM (DESCOVY) TABLET PO SCH (07:52)
[2021-07-05] MEDS: SULFAMETHOXAZOLE/TRIMETHOPRIM 800MG/160MG D.S. TABLET PO SCH (09:58)
[2021-07-05] MEDS: HYDROCHLOROTHIAZIDE 25 MG TABLET (FP) PO SCH (09:58)
[2021-07-05] MEDS: PRENATAL VITAMINS W/ FOLIC ACID TABLET (FP) PO SCH (09:58)
[2021-07-05] MEDS: NICOTINE 7 MG/24 HOURS TOPICAL PATCH TD SCH (09:58)
[2021-07-05] MEDS: THIAMINE HCL 100 MG TABLET (FP) PO SCH (21:04)
[2021-07-05] MEDS: QUEtiapine FUMARATE 50 MG TABLET PO SCH (21:04)
[2021-07-06] MEDS ORDERED: PT OWN MED DRAWER 7, Y5N ONE (03:33)
[2021-07-06] MEDS: EMTRICITABINE/TENOFOV ALAFENAM (DESCOVY) TABLET PO SCH (06:59)
[2021-07-06] MEDS: DOLUTEGRAVIR SODIUM 50 MG TABLET (NON-FORMULARY) PO SCH (06:59)
[2021-07-06] MEDS: HYDROCHLOROTHIAZIDE 25 MG TABLET (FP) PO SCH (09:43)
[2021-07-06] MEDS: NICOTINE 7 MG/24 HOURS TOPICAL PATCH TD SCH (09:43)
[2021-07-06] MEDS: PRENATAL VITAMINS W/ FOLIC ACID TABLET (FP) PO SCH (09:43)
[2021-07-06] MEDS: SULFAMETHOXAZOLE/TRIMETHOPRIM 800MG/160MG D.S. TABLET PO SCH (09:43)
[2021-07-06] MEDS: THIAMINE HCL 100 MG TABLET (FP) PO SCH (21:48)
[2021-07-06] MEDS: QUEtiapine FUMARATE 50 MG TABLET PO SCH (21:48)
[2021-07-07] MEDS ORDERED: PT OWN MED DRAWER 7, Y5N ONE (08:22)
[2021-07-07] MEDS: HYDROCHLOROTHIAZIDE 25 MG TABLET (FP) PO SCH (10:05)
[2021-07-07] MEDS: SULFAMETHOXAZOLE/TRIMETHOPRIM 800MG/160MG D.S. TABLET PO SCH (10:05)
[2021-07-07] MEDS: DOLUTEGRAVIR SODIUM 50 MG TABLET (NON-FORMULARY) PO SCH (10:05)
[2021-07-07] MEDS: hydrOXYzine PAMOATE 50 MG CAPSULE (FP) PO PRN (10:05)
[2021-07-07] MEDS: EMTRICITABINE/TENOFOV ALAFENAM (DESCOVY) TABLET PO SCH (10:05)
[2021-07-07] MEDS: PRENATAL VITAMINS W/ FOLIC ACID TABLET (FP) PO SCH (10:05)
[2021-07-07] MEDS: NICOTINE 7 MG/24 HOURS TOPICAL PATCH TD SCH (10:06)
[2021-07-07] MEDS: QUEtiapine FUMARATE 50 MG TABLET PO SCH (21:03)
[2021-07-07] MEDS: THIAMINE HCL 100 MG TABLET (FP) PO SCH (21:03)
[2021-07-08] MEDS ORDERED: PT OWN MED DRAWER 7, Y5N ONE (03:26)
[2021-07-08] MEDS: EMTRICITABINE/TENOFOV ALAFENAM (DESCOVY) TABLET PO SCH (07:16)
[2021-07-08] MEDS: DOLUTEGRAVIR SODIUM 50 MG TABLET (NON-FORMULARY) PO SCH (07:16)
[2021-07-08] MEDS: HYDROCHLOROTHIAZIDE 25 MG TABLET (FP) PO SCH (10:05)
[2021-07-08] MEDS: hydrOXYzine PAMOATE 50 MG CAPSULE (FP) PO PRN (10:05)
[2021-07-08] MEDS: NICOTINE 7 MG/24 HOURS TOPICAL PATCH TD SCH (10:06)
[2021-07-08] MEDS: SULFAMETHOXAZOLE/TRIMETHOPRIM 800MG/160MG D.S. TABLET PO SCH (10:06)
[2021-07-08] MEDS: PRENATAL VITAMINS W/ FOLIC ACID TABLET (FP) PO SCH (10:06)
[2021-07-08] MEDS: QUEtiapine FUMARATE 50 MG TABLET PO SCH (21:51)
[2021-07-08] MEDS: THIAMINE HCL 100 MG TABLET (FP) PO SCH (21:51)
[2021-07-09] MEDS ORDERED: PT OWN MED DRAWER 7, Y5N ONE (03:28)
[2021-07-09] MEDS: EMTRICITABINE/TENOFOV ALAFENAM (DESCOVY) TABLET PO SCH (09:42)
[2021-07-09] MEDS: DOLUTEGRAVIR SODIUM 50 MG TABLET (NON-FORMULARY) PO SCH (09:42)
[2021-07-09] MEDS: SULFAMETHOXAZOLE/TRIMETHOPRIM 800MG/160MG D.S. TABLET PO SCH (09:42)
[2021-07-09] MEDS: HYDROCHLOROTHIAZIDE 25 MG TABLET (FP) PO SCH (09:42)
[2021-07-09] MEDS: NICOTINE 7 MG/24 HOURS TOPICAL PATCH TD SCH (09:43)
[2021-07-09] MEDS: PRENATAL VITAMINS W/ FOLIC ACID TABLET (FP) PO SCH (09:43)
[2021-07-09] MEDS: THIAMINE HCL 100 MG TABLET (FP) PO SCH (21:00)
[2021-07-09] MEDS: QUEtiapine FUMARATE 50 MG TABLET PO SCH (21:00)
[2021-07-10] MEDS: DOLUTEGRAVIR SODIUM 50 MG TABLET (NON-FORMULARY) PO SCH (07:21)
[2021-07-10] MEDS: EMTRICITABINE/TENOFOV ALAFENAM (DESCOVY) TABLET PO SCH (07:21)
[2021-07-10] MEDS: PRENATAL VITAMINS W/ FOLIC ACID TABLET (FP) PO SCH (09:47)
[2021-07-10] MEDS: SULFAMETHOXAZOLE/TRIMETHOPRIM 800MG/160MG D.S. TABLET PO SCH (09:47)
[2021-07-10] MEDS: NICOTINE 7 MG/24 HOURS TOPICAL PATCH TD SCH (09:47)
[2021-07-10] MEDS: HYDROCHLOROTHIAZIDE 25 MG TABLET (FP) PO SCH (09:47)
[2021-07-10] MEDS: hydrOXYzine PAMOATE 50 MG CAPSULE (FP) PO PRN ×2 (09:47→21:56)
[2021-07-10] MEDS: QUEtiapine FUMARATE 50 MG TABLET PO SCH (21:56)
[2021-07-10] MEDS: THIAMINE HCL 100 MG TABLET (FP) PO SCH (21:56)
[2021-07-11] MEDS ORDERED: PT OWN MED DRAWER 7, Y5N ONE (03:37)
[2021-07-11] MEDS: EMTRICITABINE/TENOFOV ALAFENAM (DESCOVY) TABLET PO SCH (07:28)
[2021-07-11] MEDS: DOLUTEGRAVIR SODIUM 50 MG TABLET (NON-FORMULARY) PO SCH (07:28)
[2021-07-11 08:58] VITALS: BP 146/80; PULSE 86
[2021-07-11] MEDS: HYDROCHLOROTHIAZIDE 25 MG TABLET (FP) PO SCH (08:59)
[2021-07-11] MEDS: NICOTINE 7 MG/24 HOURS TOPICAL PATCH TD SCH (09:00)
[2021-07-11] MEDS: PRENATAL VITAMINS W/ FOLIC ACID TABLET (FP) PO SCH (09:00)
[2021-07-11] MEDS: SULFAMETHOXAZOLE/TRIMETHOPRIM 800MG/160MG D.S. TABLET PO SCH (09:00)
== END 2021-07-11 09:05 | disposition home or self-care (01) | DRG 772 ==
LOC: YASAS 11:05 → Y3W 11:12 → Y3E 12:47
PROVIDERS: ADMIT Allergy & Immunology; ATTEND Allergy & Immunology
PROC: HZ42ZZZ Group Counseling for Substance Abuse Treatment, Cognitive-Behavioral (ICD-10-PCS; principal; 2021-06-27)
DX: F10.20 Alcohol dependence, uncomplicated (principal); F14.20 Cocaine dependence, uncomplicated; F12.20 Cannabis dependence, uncomplicated; F17.210 Nicotine dependence, cigarettes, uncomplicated; F19.282 Other psychoactive substance dependence with psychoactive substance-induced sleep disorder; F19.24 Other psychoactive substance dependence with psychoactive substance-induced mood disorder; F33.1 Major depressive disorder, recurrent, moderate; F39 Unspecified mood [affective] disorder; F60.2 Antisocial personality disorder; Z21 Asymptomatic human immunodeficiency virus [HIV] infection status; I10 Essential (primary) hypertension; G47.00 Insomnia, unspecified

== ENCOUNTER 2021-10-15 08:33 | Inpatient (IN) | payer OTHER ==
[2021-10-15 08:55] VITALS: BMI 22.4
[2021-10-15] MEDS ORDERED: MENTHOL/PHENOL 1 EACH UD MM PRN (09:27)
[2021-10-15] MEDS ORDERED: ONDANSETRON *ODT* 4 MG TABLET SL PRN (09:27)
[2021-10-15] MEDS ORDERED: ACETAMINOPHEN 325 MG TABLET (FP) PO PRN ×2 (09:27)
[2021-10-15] MEDS ORDERED: MAGNESIUM CITRATE 300 ML BOTTLE PO PRN (09:27)
[2021-10-15] MEDS ORDERED: MAGNESIUM HYDROX 2400MG/30ML ORAL SUSPENSION 30 ML CUP PO PRN (09:27)
[2021-10-15] MEDS ORDERED: NICOTINE 10 MG CARTRIDGE (INHALER) IH PRN (09:27)
[2021-10-15] MEDS ORDERED: BISMUTH SUBSALICYLATE 524 MG/30 ML PO PRN (09:27)
[2021-10-15] MEDS ORDERED: LORazepam 1 MG TABLET PO PRN (09:27)
[2021-10-15] MEDS ORDERED: MAG HYDROX/AL HYDROX/SIMETH 30 ML UNIT-DOSE CUP PO PRN (09:27)
[2021-10-15] MEDS ORDERED: IBUPROFEN 400 MG TABLET (FP) PO PRN (09:27)
[2021-10-15] MEDS: METHOCARBAMOL 500 MG TABLET PO PRN (11:14)
[2021-10-15] MEDS: PRENATAL VITAMINS W/ FOLIC ACID TABLET (FP) PO SCH (11:14)
[2021-10-15] MEDS: hydrOXYzine PAMOATE 25 MG CAPSULE (FP) PO SCH ×4 (11:14→23:52)
[2021-10-15] MEDS: LORazepam 2 MG TABLET PO SCH ×3 (11:15→21:59)
[2021-10-15] MEDS: NICOTINE 14 MG/24 HOURS TOPICAL PATCH TD SCH (11:20)
[2021-10-15 14:49] LABS: HEMATOCRIT 40.2 % (35.4-49); MCH 29.8 pg (25.7-33.7); MCHC 32.3 g/dl (32.0-35.9); MEAN CELL VOLUME 92.3 fl (80-96); MEAN PLT VOLUME 7.9 fl (7.5-11.1); PLATELET COUNT 278 10^3/uL (134-434); RBC 4.35 M/mm3 (4.00-5.60)
[2021-10-15 14:54] LABS: CALCIUM 8.5 mg/dL (8.5-10.1)
[2021-10-15 14:55] LABS: ALBUMIN 3.3 g/dl (3.4-5.0); BLOOD UREA NITROGEN 14.7 mg/dL (7-18)
[2021-10-15 14:58] LABS: CREATININE 1.3 mg/dL (0.55-1.3)
[2021-10-15 15:00] LABS: BILIRUBIN,TOTAL 0.2 mg/dL (0.2-1); TOT PROT 7.1 g/dl (6.4-8.2)
[2021-10-15] MEDS: THIAMINE HCL 100 MG TABLET (FP) PO SCH (21:59)
[2021-10-15] MEDS: QUEtiapine FUMARATE 100 MG TABLET (FP) PO SCH (21:59)
[2021-10-15] MEDS: MELATONIN 5 MG TABLETS PO SCH (23:52)
[2021-10-16] MEDS: hydrOXYzine PAMOATE 25 MG CAPSULE (FP) PO SCH ×5 (06:09→23:16)
[2021-10-16] MEDS: LORazepam 2 MG TABLET PO SCH ×4 (06:09→22:47)
[2021-10-16] MEDS: PRENATAL VITAMINS W/ FOLIC ACID TABLET (FP) PO SCH (10:57)
[2021-10-16] MEDS: NICOTINE 14 MG/24 HOURS TOPICAL PATCH TD SCH (10:57)
[2021-10-16] MEDS: MELATONIN 5 MG TABLETS PO SCH (22:46)
[2021-10-16] MEDS: QUEtiapine FUMARATE 100 MG TABLET (FP) PO SCH (22:46)
[2021-10-16] MEDS: THIAMINE HCL 100 MG TABLET (FP) PO SCH (22:47)
[2021-10-17] MEDS: LORazepam 1 MG TABLET PO SCH ×4 (05:36→22:52)
[2021-10-17] MEDS: hydrOXYzine PAMOATE 25 MG CAPSULE (FP) PO SCH ×5 (05:36→22:51)
[2021-10-17] MEDS: METHOCARBAMOL 500 MG TABLET PO PRN (09:52)
[2021-10-17] MEDS: PRENATAL VITAMINS W/ FOLIC ACID TABLET (FP) PO SCH (09:53)
[2021-10-17] MEDS: NICOTINE 14 MG/24 HOURS TOPICAL PATCH TD SCH (09:57)
[2021-10-17] MEDS: QUEtiapine FUMARATE 100 MG TABLET (FP) PO SCH (22:51)
[2021-10-17] MEDS: THIAMINE HCL 100 MG TABLET (FP) PO SCH (22:51)
[2021-10-17] MEDS: MELATONIN 5 MG TABLETS PO SCH (22:52)
[2021-10-18] MEDS ORDERED: LORazepam 0.5 MG TABLET PO PRN
[2021-10-18] MEDS: LORazepam 0.5 MG TABLET PO SCH ×4 (06:43→22:24)
[2021-10-18] MEDS: hydrOXYzine PAMOATE 25 MG CAPSULE (FP) PO SCH ×5 (06:43→22:23)
[2021-10-18] MEDS: PRENATAL VITAMINS W/ FOLIC ACID TABLET (FP) PO SCH (10:37)
[2021-10-18] MEDS: METHOCARBAMOL 500 MG TABLET PO PRN (10:37)
[2021-10-18] MEDS: NICOTINE 14 MG/24 HOURS TOPICAL PATCH TD SCH (10:37)
[2021-10-18] MEDS: QUEtiapine FUMARATE 100 MG TABLET (FP) PO SCH (22:23)
[2021-10-18] MEDS: MELATONIN 5 MG TABLETS PO SCH (22:23)
[2021-10-18] MEDS: THIAMINE HCL 100 MG TABLET (FP) PO SCH (22:23)
[2021-10-19] MEDS ORDERED: LORazepam 0.5 MG TABLET PO ONE (05:00)
[2021-10-19] MEDS: hydrOXYzine PAMOATE 25 MG CAPSULE (FP) PO SCH (05:25)
[2021-10-19 09:51] VITALS: BP 94/61; PULSE 60; TEMP 98
== END 2021-10-19 10:10 | disposition home or self-care (01) | DRG 774 ==
LOC: YASAS 08:33 → Y6N 09:41
PROVIDERS: ADMIT Allergy & Immunology; ATTEND Allergy & Immunology
PROC: HZ2ZZZZ Detoxification Services for Substance Abuse Treatment (ICD-10-PCS; principal; 2021-10-15)
DX: F10.230 Alcohol dependence with withdrawal, uncomplicated (principal); F14.20 Cocaine dependence, uncomplicated; F12.20 Cannabis dependence, uncomplicated; F17.210 Nicotine dependence, cigarettes, uncomplicated; F41.9 Anxiety disorder, unspecified; F32.A Depression, unspecified; F19.282 Other psychoactive substance dependence with psychoactive substance-induced sleep disorder; F51.05 Insomnia due to other mental disorder; U07.1 COVID-19; Z21 Asymptomatic human immunodeficiency virus [HIV] infection status; L30.9 Dermatitis, unspecified; R63.4 Abnormal weight loss; Z68.22 Body mass index [BMI] 22.0-22.9, adult; Z91.51 Personal history of suicidal behavior
CPT/HCPCS: 36415; 80053; 85027; 86780; C9803; Q0162; U0003; U0005

== ENCOUNTER 2021-10-31 07:58 | Inpatient (IN) | payer OTHER ==
[2021-10-31 08:17] VITALS: BMI 21.7
[2021-10-31] MEDS ORDERED: MAG HYDROX/AL HYDROX/SIMETH 30 ML UNIT-DOSE CUP PO PRN (09:27)
[2021-10-31] MEDS ORDERED: MENTHOL/PHENOL 1 EACH UD MM PRN (09:27)
[2021-10-31] MEDS ORDERED: MAGNESIUM CITRATE 300 ML BOTTLE PO PRN (09:27)
[2021-10-31] MEDS ORDERED: NICOTINE 10 MG CARTRIDGE (INHALER) IH PRN (09:27)
[2021-10-31] MEDS ORDERED: ACETAMINOPHEN 325 MG TABLET (FP) PO PRN ×2 (09:27)
[2021-10-31] MEDS ORDERED: BISMUTH SUBSALICYLATE 262 MG/15 ML BTL PO PRN (09:27)
[2021-10-31] MEDS ORDERED: ONDANSETRON *ODT* 4 MG TABLET SL PRN (09:27)
[2021-10-31] MEDS ORDERED: MAGNESIUM HYDROX 2400MG/30ML ORAL SUSPENSION 30 ML CUP PO PRN (09:27)
[2021-10-31] MEDS ORDERED: IBUPROFEN 400 MG TABLET (FP) PO PRN (09:27)
[2021-10-31] MEDS ORDERED: METHOCARBAMOL 500 MG TABLET PO PRN (09:27)
[2021-10-31] MEDS: PRENATAL VITAMINS W/ FOLIC ACID TABLET (FP) PO SCH (17:50)
[2021-10-31] MEDS: NICOTINE 7 MG/24 HOURS TOPICAL PATCH TD SCH (17:55)
[2021-10-31] MEDS: hydrOXYzine PAMOATE 25 MG CAPSULE (FP) PO SCH ×3 (17:55→21:29)
[2021-10-31] MEDS: MELATONIN 5 MG TABLETS PO SCH (21:29)
[2021-10-31] MEDS: THIAMINE HCL 100 MG TABLET (FP) PO SCH (21:29)
[2021-11-01] MEDS: hydrOXYzine PAMOATE 25 MG CAPSULE (FP) PO SCH ×5 (06:34→21:18)
[2021-11-01] MEDS: NICOTINE 7 MG/24 HOURS TOPICAL PATCH TD SCH (10:05)
[2021-11-01] MEDS: PRENATAL VITAMINS W/ FOLIC ACID TABLET (FP) PO SCH (10:05)
[2021-11-01] MEDS: SULFAMETHOXAZOLE/TRIMETHOPRIM 800MG/160MG D.S. TABLET PO SCH (10:06)
[2021-11-01 10:36] LABS: HEMATOCRIT 43.8 % (35.4-49); HEMOGLOBIN 14.2 GM/dL (11.7-16.9); MCH 29.3 pg (25.7-33.7); MCHC 32.3 g/dl (32.0-35.9); MEAN CELL VOLUME 90.8 fl (80-96); MEAN PLT VOLUME 8.3 fl (7.5-11.1); PLATELET COUNT 266 10^3/uL (134-434); RBC 4.83 M/mm3 (4.00-5.60); RDW 13.7 % (11.9-15.9); WHITE BLOOD COUNT 5.2 K/mm3 (4.0-10.0)
[2021-11-01 10:39] LABS: CALCIUM 9.2 mg/dL (8.5-10.1)
[2021-11-01 10:40] LABS: ALBUMIN 3.5 g/dl (3.4-5.0); BLOOD UREA NITROGEN 14.4 mg/dL (7-18)
[2021-11-01 10:44] LABS: BILIRUBIN,TOTAL 0.5 mg/dL (0.2-1); CREATININE 1.1 mg/dL (0.55-1.3); TOT PROT 7.5 g/dl (6.4-8.2)
[2021-11-01] MEDS: MELATONIN 5 MG TABLETS PO SCH (21:18)
[2021-11-01] MEDS: THIAMINE HCL 100 MG TABLET (FP) PO SCH (21:18)
[2021-11-02] MEDS ORDERED: QUEtiapine FUMARATE 100 MG TABLET (FP) PO ONE (02:26)
[2021-11-02] MEDS: hydrOXYzine PAMOATE 25 MG CAPSULE (FP) PO SCH ×5 (07:04→21:09)
[2021-11-02] MEDS: PRENATAL VITAMINS W/ FOLIC ACID TABLET (FP) PO SCH (10:33)
[2021-11-02] MEDS: SULFAMETHOXAZOLE/TRIMETHOPRIM 800MG/160MG D.S. TABLET PO SCH (10:33)
[2021-11-02] MEDS: NICOTINE 7 MG/24 HOURS TOPICAL PATCH TD SCH (10:34)
[2021-11-02] MEDS: THIAMINE HCL 100 MG TABLET (FP) PO SCH (21:09)
[2021-11-02] MEDS: MELATONIN 5 MG TABLETS PO SCH (21:09)
[2021-11-02] MEDS: QUEtiapine FUMARATE 200 MG TABLET PO SCH (21:09)
[2021-11-03] MEDS: hydrOXYzine PAMOATE 25 MG CAPSULE (FP) PO SCH ×5 (06:56→21:21)
[2021-11-03] MEDS: NICOTINE 7 MG/24 HOURS TOPICAL PATCH TD SCH (10:30)
[2021-11-03] MEDS: PRENATAL VITAMINS W/ FOLIC ACID TABLET (FP) PO SCH (10:30)
[2021-11-03] MEDS: SULFAMETHOXAZOLE/TRIMETHOPRIM 800MG/160MG D.S. TABLET PO SCH (10:30)
[2021-11-03] MEDS: THIAMINE HCL 100 MG TABLET (FP) PO SCH (21:21)
[2021-11-03] MEDS: MELATONIN 5 MG TABLETS PO SCH (21:21)
[2021-11-03] MEDS: QUEtiapine FUMARATE 200 MG TABLET PO SCH (21:21)
[2021-11-04] MEDS: hydrOXYzine PAMOATE 25 MG CAPSULE (FP) PO SCH ×5 (06:34→21:16)
[2021-11-04] MEDS: NICOTINE 7 MG/24 HOURS TOPICAL PATCH TD SCH (09:03)
[2021-11-04] MEDS: SULFAMETHOXAZOLE/TRIMETHOPRIM 800MG/160MG D.S. TABLET PO SCH (09:03)
[2021-11-04] MEDS: PRENATAL VITAMINS W/ FOLIC ACID TABLET (FP) PO SCH (09:03)
[2021-11-04] MEDS: QUEtiapine FUMARATE 200 MG TABLET PO SCH (21:16)
[2021-11-04] MEDS: THIAMINE HCL 100 MG TABLET (FP) PO SCH (21:16)
[2021-11-04] MEDS: MELATONIN 5 MG TABLETS PO SCH (21:16)
[2021-11-05] MEDS: hydrOXYzine PAMOATE 25 MG CAPSULE (FP) PO SCH ×5 (06:34→21:12)
[2021-11-05] MEDS: SULFAMETHOXAZOLE/TRIMETHOPRIM 800MG/160MG D.S. TABLET PO SCH (09:49)
[2021-11-05] MEDS: NICOTINE 7 MG/24 HOURS TOPICAL PATCH TD SCH (09:49)
[2021-11-05] MEDS: PRENATAL VITAMINS W/ FOLIC ACID TABLET (FP) PO SCH (09:49)
[2021-11-05] MEDS: QUEtiapine FUMARATE 200 MG TABLET PO SCH (21:12)
[2021-11-05] MEDS: MELATONIN 5 MG TABLETS PO SCH (21:12)
[2021-11-05] MEDS: THIAMINE HCL 100 MG TABLET (FP) PO SCH (21:12)
[2021-11-06] MEDS: hydrOXYzine PAMOATE 25 MG CAPSULE (FP) PO SCH (06:19)
[2021-11-06] MEDS: NICOTINE 7 MG/24 HOURS TOPICAL PATCH TD SCH (10:06)
[2021-11-06] MEDS: PRENATAL VITAMINS W/ FOLIC ACID TABLET (FP) PO SCH (10:06)
[2021-11-06] MEDS: SULFAMETHOXAZOLE/TRIMETHOPRIM 800MG/160MG D.S. TABLET PO SCH (10:06)
[2021-11-06] MEDS: THIAMINE HCL 100 MG TABLET (FP) PO SCH (21:07)
[2021-11-06] MEDS: QUEtiapine FUMARATE 200 MG TABLET PO SCH (21:07)
[2021-11-06] MEDS: MELATONIN 5 MG TABLETS PO SCH (21:07)
[2021-11-07] MEDS: NICOTINE 7 MG/24 HOURS TOPICAL PATCH TD SCH (09:21)
[2021-11-07] MEDS: PRENATAL VITAMINS W/ FOLIC ACID TABLET (FP) PO SCH (09:21)
[2021-11-07] MEDS: hydrOXYzine PAMOATE 25 MG CAPSULE (FP) PO PRN ×2 (09:21→21:38)
[2021-11-07] MEDS: SULFAMETHOXAZOLE/TRIMETHOPRIM 800MG/160MG D.S. TABLET PO SCH (09:21)
[2021-11-07] MEDS: THIAMINE HCL 100 MG TABLET (FP) PO SCH (21:38)
[2021-11-07] MEDS: QUEtiapine FUMARATE 200 MG TABLET PO SCH (21:38)
[2021-11-07] MEDS: MELATONIN 5 MG TABLETS PO SCH (21:38)
[2021-11-08] MEDS: SULFAMETHOXAZOLE/TRIMETHOPRIM 800MG/160MG D.S. TABLET PO SCH (10:56)
[2021-11-08] MEDS: NICOTINE 7 MG/24 HOURS TOPICAL PATCH TD SCH (10:56)
[2021-11-08] MEDS: hydrOXYzine PAMOATE 25 MG CAPSULE (FP) PO PRN ×2 (10:56→21:57)
[2021-11-08] MEDS: PRENATAL VITAMINS W/ FOLIC ACID TABLET (FP) PO SCH (10:56)
[2021-11-08] MEDS: MELATONIN 5 MG TABLETS PO SCH (21:57)
[2021-11-08] MEDS: THIAMINE HCL 100 MG TABLET (FP) PO SCH (21:57)
[2021-11-08] MEDS: QUEtiapine FUMARATE 200 MG TABLET PO SCH (21:57)
[2021-11-09] MEDS: PRENATAL VITAMINS W/ FOLIC ACID TABLET (FP) PO SCH (10:40)
[2021-11-09] MEDS: hydrOXYzine PAMOATE 25 MG CAPSULE (FP) PO PRN (10:40)
[2021-11-09] MEDS: NICOTINE 7 MG/24 HOURS TOPICAL PATCH TD SCH (10:40)
[2021-11-09] MEDS: SULFAMETHOXAZOLE/TRIMETHOPRIM 800MG/160MG D.S. TABLET PO SCH (10:40)
[2021-11-09] MEDS: QUEtiapine FUMARATE 200 MG TABLET PO SCH (21:34)
[2021-11-09] MEDS: THIAMINE HCL 100 MG TABLET (FP) PO SCH (21:34)
[2021-11-09] MEDS: MELATONIN 5 MG TABLETS PO SCH (21:34)
[2021-11-10] MEDS: SULFAMETHOXAZOLE/TRIMETHOPRIM 800MG/160MG D.S. TABLET PO SCH (10:49)
[2021-11-10] MEDS: hydrOXYzine PAMOATE 25 MG CAPSULE (FP) PO PRN ×2 (10:50→21:40)
[2021-11-10] MEDS: PRENATAL VITAMINS W/ FOLIC ACID TABLET (FP) PO SCH (10:50)
[2021-11-10] MEDS: NICOTINE 7 MG/24 HOURS TOPICAL PATCH TD SCH (10:50)
[2021-11-10] MEDS: THIAMINE HCL 100 MG TABLET (FP) PO SCH (21:39)
[2021-11-10] MEDS: MELATONIN 5 MG TABLETS PO SCH (21:39)
[2021-11-10] MEDS: QUEtiapine FUMARATE 200 MG TABLET PO SCH (21:40)
[2021-11-11] MEDS: NICOTINE 7 MG/24 HOURS TOPICAL PATCH TD SCH (10:17)
[2021-11-11] MEDS: PRENATAL VITAMINS W/ FOLIC ACID TABLET (FP) PO SCH (10:17)
[2021-11-11] MEDS: SULFAMETHOXAZOLE/TRIMETHOPRIM 800MG/160MG D.S. TABLET PO SCH (10:18)
[2021-11-11] MEDS: QUEtiapine FUMARATE 200 MG TABLET PO SCH (21:54)
[2021-11-11] MEDS: THIAMINE HCL 100 MG TABLET (FP) PO SCH (21:54)
[2021-11-11] MEDS: MELATONIN 5 MG TABLETS PO SCH (21:54)
[2021-11-12] MEDS: PRENATAL VITAMINS W/ FOLIC ACID TABLET (FP) PO SCH (10:30)
[2021-11-12] MEDS: SULFAMETHOXAZOLE/TRIMETHOPRIM 800MG/160MG D.S. TABLET PO SCH (10:30)
[2021-11-12] MEDS: NICOTINE 7 MG/24 HOURS TOPICAL PATCH TD SCH (10:30)
[2021-11-12] MEDS: THIAMINE HCL 100 MG TABLET (FP) PO SCH (21:29)
[2021-11-12] MEDS: hydrOXYzine PAMOATE 25 MG CAPSULE (FP) PO PRN (21:29)
[2021-11-12] MEDS: MELATONIN 5 MG TABLETS PO SCH (21:29)
[2021-11-12] MEDS: QUEtiapine FUMARATE 200 MG TABLET PO SCH (21:30)
[2021-11-13 07:29] VITALS: BP 149/83; PULSE 71; TEMP 97.7
[2021-11-13] MEDS: SULFAMETHOXAZOLE/TRIMETHOPRIM 800MG/160MG D.S. TABLET PO SCH (09:14)
[2021-11-13] MEDS: PRENATAL VITAMINS W/ FOLIC ACID TABLET (FP) PO SCH (09:14)
[2021-11-13] MEDS: NICOTINE 7 MG/24 HOURS TOPICAL PATCH TD SCH (09:15)
== END 2021-11-13 09:40 | disposition home or self-care (01) | DRG 772 ==
LOC: YASAS 07:58 → Y3W 16:12 → Y5N 11-07 13:16
PROVIDERS: ADMIT Allergy & Immunology; ATTEND Allergy & Immunology
PROC: HZ42ZZZ Group Counseling for Substance Abuse Treatment, Cognitive-Behavioral (ICD-10-PCS; principal; 2021-10-31)
DX: F10.20 Alcohol dependence, uncomplicated (principal); F14.20 Cocaine dependence, uncomplicated; F12.20 Cannabis dependence, uncomplicated; F17.210 Nicotine dependence, cigarettes, uncomplicated; F19.282 Other psychoactive substance dependence with psychoactive substance-induced sleep disorder; F60.2 Antisocial personality disorder; F32.9 Major depressive disorder, single episode, unspecified; F41.9 Anxiety disorder, unspecified; Z21 Asymptomatic human immunodeficiency virus [HIV] infection status; I10 Essential (primary) hypertension; R63.4 Abnormal weight loss; Z68.21 Body mass index [BMI] 21.0-21.9, adult; Z91.51 Personal history of suicidal behavior
CPT/HCPCS: 36415; 80053; 85027; 86780; C9803; U0003; U0005

== ENCOUNTER 2022-01-02 06:30 | Inpatient (IN) | payer OTHER ==
[2022-01-02 09:33] VITALS: BMI 21.7
[2022-01-02] MEDS ORDERED: IBUPROFEN 400 MG TABLET (FP) PO PRN (09:55)
[2022-01-02] MEDS ORDERED: LOPERAMIDE HCL 2 MG CAPSULE PO PRN (09:55)
[2022-01-02] MEDS ORDERED: P-EPHED 60MG/TRIPROLIDI 2.5MG TABLET PO PRN (09:55)
[2022-01-02] MEDS ORDERED: MAGNESIUM CITRATE 300 ML BOTTLE PO PRN (09:55)
[2022-01-02] MEDS ORDERED: MAG HYDROX/AL HYDROX/SIMETH 30 ML UNIT-DOSE CUP PO PRN (09:55)
[2022-01-02] MEDS ORDERED: MAGNESIUM HYDROX 2400MG/30ML ORAL SUSPENSION 30 ML CUP PO PRN (09:55)
[2022-01-02] MEDS ORDERED: ACETAMINOPHEN 325 MG TABLET (FP) PO PRN (09:55)
[2022-01-02] MEDS ORDERED: guaiFENesin 200 MG/10 ML 10 ML UNIT-DOSE CUPS PO PRN (09:55)
[2022-01-02] MEDS ORDERED: NICOTINE 10 MG CARTRIDGE (INHALER) IH PRN (09:55)
[2022-01-02] MEDS: hydrOXYzine PAMOATE 25 MG CAPSULE (FP) PO SCH ×4 (14:26→21:27)
[2022-01-02] MEDS: PRENATAL VITAMINS W/ FOLIC ACID TABLET (FP) PO SCH (14:27)
[2022-01-02] MEDS: NICOTINE 7 MG/24 HOURS TOPICAL PATCH TD SCH (14:28)
[2022-01-02 18:06] LABS: HEMATOCRIT 41.6 % (35.4-49); HEMOGLOBIN 13.7 GM/dL (11.7-16.9); MCH 29.8 pg (25.7-33.7); MEAN CELL VOLUME 90.5 fl (80-96); MEAN PLT VOLUME 7.9 fl (7.5-11.1); PLATELET COUNT 270 10^3/uL (134-434); RDW 14.7 % (11.9-15.9); WHITE BLOOD COUNT 3.9 K/mm3 (4.0-10.0)
[2022-01-02 18:14] LABS: ALBUMIN 3.9 g/dl (3.4-5.0); BLOOD UREA NITROGEN 19.1 mg/dL (7-18); CALCIUM 9.2 mg/dL (8.5-10.1)
[2022-01-02 18:16] LABS: CREATININE 1.2 mg/dL (0.55-1.3)
[2022-01-02 18:17] LABS: TOT PROT 7.7 g/dl (6.4-8.2)
[2022-01-02 18:18] LABS: BILIRUBIN,TOTAL 0.2 mg/dL (0.2-1)
[2022-01-02 18:38] LABS: SYPHILIS W/ RPR CONF NON-REACTIVE (NONREACTIVE)
[2022-01-02] MEDS: MELATONIN 5 MG TABLETS PO SCH (21:26)
[2022-01-02] MEDS: THIAMINE HCL 100 MG TABLET (FP) PO SCH (21:26)
[2022-01-02] MEDS ORDERED: QUEtiapine FUMARATE 100 MG TABLET (FP) PO SCH (22:00)
[2022-01-03] MEDS: hydrOXYzine PAMOATE 25 MG CAPSULE (FP) PO SCH ×3 (06:48→13:54)
[2022-01-03] MEDS: PRENATAL VITAMINS W/ FOLIC ACID TABLET (FP) PO SCH (09:49)
[2022-01-03] MEDS: NICOTINE 7 MG/24 HOURS TOPICAL PATCH TD SCH (09:49)
[2022-01-03] MEDS: SULFAMETHOXAZOLE/TRIMETHOPRIM 800MG/160MG D.S. TABLET PO SCH (09:49)
[2022-01-03] MEDS: QUEtiapine FUMARATE 50 MG TABLET PO SCH (21:08)
[2022-01-03] MEDS: MELATONIN 5 MG TABLETS PO SCH (21:08)
[2022-01-03] MEDS: THIAMINE HCL 100 MG TABLET (FP) PO SCH (21:08)
[2022-01-04] MEDS: PRENATAL VITAMINS W/ FOLIC ACID TABLET (FP) PO SCH (09:33)
[2022-01-04] MEDS: SULFAMETHOXAZOLE/TRIMETHOPRIM 800MG/160MG D.S. TABLET PO SCH (09:33)
[2022-01-04] MEDS: QUEtiapine FUMARATE 50 MG TABLET PO SCH ×2 (09:33→21:54)
[2022-01-04] MEDS: NICOTINE 7 MG/24 HOURS TOPICAL PATCH TD SCH (09:34)
[2022-01-04] MEDS: hydrOXYzine PAMOATE 50 MG CAPSULE (FP) PO PRN (16:12)
[2022-01-04] MEDS: MELATONIN 5 MG TABLETS PO SCH (21:52)
[2022-01-04] MEDS: THIAMINE HCL 100 MG TABLET (FP) PO SCH (21:53)
[2022-01-05] MEDS: SULFAMETHOXAZOLE/TRIMETHOPRIM 800MG/160MG D.S. TABLET PO SCH (10:20)
[2022-01-05] MEDS: hydrOXYzine PAMOATE 50 MG CAPSULE (FP) PO PRN (10:20)
[2022-01-05] MEDS: QUEtiapine FUMARATE 50 MG TABLET PO SCH ×2 (10:20→21:27)
[2022-01-05] MEDS: NICOTINE 7 MG/24 HOURS TOPICAL PATCH TD SCH (10:20)
[2022-01-05] MEDS: PRENATAL VITAMINS W/ FOLIC ACID TABLET (FP) PO SCH (10:20)
[2022-01-05] MEDS: MELATONIN 5 MG TABLETS PO SCH (21:26)
[2022-01-05] MEDS: THIAMINE HCL 100 MG TABLET (FP) PO SCH (21:27)
[2022-01-06] MEDS: QUEtiapine FUMARATE 50 MG TABLET PO SCH ×2 (10:36→21:45)
[2022-01-06] MEDS: SULFAMETHOXAZOLE/TRIMETHOPRIM 800MG/160MG D.S. TABLET PO SCH (10:36)
[2022-01-06] MEDS: PRENATAL VITAMINS W/ FOLIC ACID TABLET (FP) PO SCH (10:36)
[2022-01-06] MEDS: NICOTINE 7 MG/24 HOURS TOPICAL PATCH TD SCH (10:36)
[2022-01-06] MEDS: hydrOXYzine PAMOATE 50 MG CAPSULE (FP) PO PRN (10:43)
[2022-01-06] MEDS: THIAMINE HCL 100 MG TABLET (FP) PO SCH (21:45)
[2022-01-06] MEDS: MELATONIN 5 MG TABLETS PO SCH (21:45)
[2022-01-07] MEDS: QUEtiapine FUMARATE 50 MG TABLET PO SCH ×2 (10:14→21:17)
[2022-01-07] MEDS: PRENATAL VITAMINS W/ FOLIC ACID TABLET (FP) PO SCH (10:14)
[2022-01-07] MEDS: SULFAMETHOXAZOLE/TRIMETHOPRIM 800MG/160MG D.S. TABLET PO SCH (10:14)
[2022-01-07] MEDS: NICOTINE 7 MG/24 HOURS TOPICAL PATCH TD SCH (10:15)
[2022-01-07] MEDS: THIAMINE HCL 100 MG TABLET (FP) PO SCH (21:16)
[2022-01-07] MEDS: MELATONIN 5 MG TABLETS PO SCH (21:17)
[2022-01-08] MEDS: PRENATAL VITAMINS W/ FOLIC ACID TABLET (FP) PO SCH (09:50)
[2022-01-08] MEDS: SULFAMETHOXAZOLE/TRIMETHOPRIM 800MG/160MG D.S. TABLET PO SCH (09:50)
[2022-01-08] MEDS: NICOTINE 7 MG/24 HOURS TOPICAL PATCH TD SCH (09:51)
[2022-01-08] MEDS: QUEtiapine FUMARATE 50 MG TABLET PO SCH ×2 (09:51→21:31)
[2022-01-08] MEDS: MELATONIN 5 MG TABLETS PO SCH (21:31)
[2022-01-08] MEDS: THIAMINE HCL 100 MG TABLET (FP) PO SCH (21:31)
[2022-01-09 06:06] LABS: SARS-CoV-2 NAA Not Detected (Not Detected)
[2022-01-09] MEDS: QUEtiapine FUMARATE 50 MG TABLET PO SCH (09:37)
[2022-01-09] MEDS: NICOTINE 7 MG/24 HOURS TOPICAL PATCH TD SCH (09:37)
[2022-01-09] MEDS: PRENATAL VITAMINS W/ FOLIC ACID TABLET (FP) PO SCH (09:37)
[2022-01-09] MEDS: SULFAMETHOXAZOLE/TRIMETHOPRIM 800MG/160MG D.S. TABLET PO SCH (09:37)
[2022-01-09] MEDS: THIAMINE HCL 100 MG TABLET (FP) PO SCH (21:07)
[2022-01-09] MEDS: MELATONIN 5 MG TABLETS PO SCH (21:07)
[2022-01-09] MEDS: QUEtiapine FUMARATE 200 MG TABLET PO SCH (21:08)
[2022-01-10] MEDS: PRENATAL VITAMINS W/ FOLIC ACID TABLET (FP) PO SCH (10:55)
[2022-01-10] MEDS: QUEtiapine FUMARATE 50 MG TABLET PO SCH (10:55)
[2022-01-10] MEDS: SULFAMETHOXAZOLE/TRIMETHOPRIM 800MG/160MG D.S. TABLET PO SCH (10:56)
[2022-01-10] MEDS: NICOTINE 7 MG/24 HOURS TOPICAL PATCH TD SCH (10:56)
[2022-01-10] MEDS: QUEtiapine FUMARATE 200 MG TABLET PO SCH (21:27)
[2022-01-10] MEDS: THIAMINE HCL 100 MG TABLET (FP) PO SCH (21:27)
[2022-01-10] MEDS: MELATONIN 5 MG TABLETS PO SCH (21:28)
[2022-01-11] MEDS: SULFAMETHOXAZOLE/TRIMETHOPRIM 800MG/160MG D.S. TABLET PO SCH (10:38)
[2022-01-11] MEDS: PRENATAL VITAMINS W/ FOLIC ACID TABLET (FP) PO SCH (10:38)
[2022-01-11] MEDS: QUEtiapine FUMARATE 50 MG TABLET PO SCH (10:38)
[2022-01-11] MEDS: NICOTINE 7 MG/24 HOURS TOPICAL PATCH TD SCH (10:39)
[2022-01-11] MEDS: hydrOXYzine PAMOATE 50 MG CAPSULE (FP) PO PRN (10:39)
[2022-01-11] MEDS: MELATONIN 5 MG TABLETS PO SCH (21:15)
[2022-01-11] MEDS: QUEtiapine FUMARATE 200 MG TABLET PO SCH (21:15)
[2022-01-11] MEDS: THIAMINE HCL 100 MG TABLET (FP) PO SCH (21:15)
[2022-01-12] MEDS: QUEtiapine FUMARATE 50 MG TABLET PO SCH (09:57)
[2022-01-12] MEDS: PRENATAL VITAMINS W/ FOLIC ACID TABLET (FP) PO SCH (09:57)
[2022-01-12] MEDS: hydrOXYzine PAMOATE 50 MG CAPSULE (FP) PO PRN ×2 (09:58→21:25)
[2022-01-12] MEDS: SULFAMETHOXAZOLE/TRIMETHOPRIM 800MG/160MG D.S. TABLET PO SCH (09:58)
[2022-01-12] MEDS: NICOTINE 7 MG/24 HOURS TOPICAL PATCH TD SCH (09:58)
[2022-01-12 13:23] VITALS: TEMP 96.9
[2022-01-12] MEDS: THIAMINE HCL 100 MG TABLET (FP) PO SCH (21:25)
[2022-01-12] MEDS: MELATONIN 5 MG TABLETS PO SCH (21:25)
[2022-01-12] MEDS: QUEtiapine FUMARATE 200 MG TABLET PO SCH (21:25)
[2022-01-13] MEDS: PRENATAL VITAMINS W/ FOLIC ACID TABLET (FP) PO SCH (10:05)
[2022-01-13] MEDS: QUEtiapine FUMARATE 50 MG TABLET PO SCH (10:05)
[2022-01-13] MEDS: NICOTINE 7 MG/24 HOURS TOPICAL PATCH TD SCH (10:06)
[2022-01-13] MEDS: SULFAMETHOXAZOLE/TRIMETHOPRIM 800MG/160MG D.S. TABLET PO SCH (10:06)
[2022-01-13] MEDS: THIAMINE HCL 100 MG TABLET (FP) PO SCH (21:28)
[2022-01-13] MEDS: MELATONIN 5 MG TABLETS PO SCH (21:28)
[2022-01-13] MEDS: hydrOXYzine PAMOATE 50 MG CAPSULE (FP) PO PRN (21:29)
[2022-01-13] MEDS: QUEtiapine FUMARATE 200 MG TABLET PO SCH (21:29)
[2022-01-14] MEDS: SULFAMETHOXAZOLE/TRIMETHOPRIM 800MG/160MG D.S. TABLET PO SCH (09:51)
[2022-01-14] MEDS: NICOTINE 7 MG/24 HOURS TOPICAL PATCH TD SCH (09:51)
[2022-01-14] MEDS: QUEtiapine FUMARATE 50 MG TABLET PO SCH (09:52)
[2022-01-14] MEDS: PRENATAL VITAMINS W/ FOLIC ACID TABLET (FP) PO SCH (09:52)
[2022-01-14] MEDS: hydrOXYzine PAMOATE 50 MG CAPSULE (FP) PO PRN ×2 (09:52→21:28)
[2022-01-14 16:04] LABS: PH,URINE 7.5 (5.0-8.0); URINE APPEARANCE CLEAR; URINE BILIRUBIN NEGATIVE (NEGATIVE); URINE COLOR YELLOW; URINE GLUCOSE (UA) NEGATIVE (NEGATIVE); URINE KETONE NEGATIVE (NEGATIVE); URINE LEUK ESTERASE NEGATIVE (NEGATIVE); URINE NITRITE NEGATIVE (NEGATIVE); URINE PROTEIN NEGATIVE (NEGATIVE); URINE UROBILINOGEN 0.2 mg/dL (0.2-1.0)
[2022-01-14] MEDS: THIAMINE HCL 100 MG TABLET (FP) PO SCH (21:28)
[2022-01-14] MEDS: QUEtiapine FUMARATE 200 MG TABLET PO SCH (21:28)
[2022-01-14] MEDS: MELATONIN 5 MG TABLETS PO SCH (21:28)
[2022-01-15 09:10] VITALS: BP 140/60; PULSE 81
[2022-01-15] MEDS: QUEtiapine FUMARATE 50 MG TABLET PO SCH (09:52)
[2022-01-15] MEDS: SULFAMETHOXAZOLE/TRIMETHOPRIM 800MG/160MG D.S. TABLET PO SCH (09:53)
[2022-01-15] MEDS: NICOTINE 7 MG/24 HOURS TOPICAL PATCH TD SCH (09:53)
[2022-01-15] MEDS: PRENATAL VITAMINS W/ FOLIC ACID TABLET (FP) PO SCH (09:53)
== END 2022-01-15 10:22 | disposition home or self-care (01) | DRG 772 ==
LOC: YASAS 06:30 → Y3W 12:32 → Y3E 01-12 11:11
PROVIDERS: ADMIT Allergy & Immunology; ATTEND Allergy & Immunology
PROC: HZ42ZZZ Group Counseling for Substance Abuse Treatment, Cognitive-Behavioral (ICD-10-PCS; principal; 2022-01-02)
DX: F10.20 Alcohol dependence, uncomplicated (principal); F14.20 Cocaine dependence, uncomplicated; F12.20 Cannabis dependence, uncomplicated; F17.210 Nicotine dependence, cigarettes, uncomplicated; F19.282 Other psychoactive substance dependence with psychoactive substance-induced sleep disorder; F19.24 Other psychoactive substance dependence with psychoactive substance-induced mood disorder; F39 Unspecified mood [affective] disorder; F32.A Depression, unspecified; F41.9 Anxiety disorder, unspecified; Z21 Asymptomatic human immunodeficiency virus [HIV] infection status; I10 Essential (primary) hypertension
CPT/HCPCS: 36415; 80053; 81003; 83036; 85027; 86780; 86803; C9803-CS; U0003; U0005

== ENCOUNTER 2022-03-13 08:03 | Inpatient (IN) | payer OTHER ==
[2022-03-13 08:41] VITALS: BMI 20.3
[2022-03-13] MEDS ORDERED: MAGNESIUM HYDROX 2400MG/30ML ORAL SUSPENSION 30 ML CUP PO PRN (08:59)
[2022-03-13] MEDS ORDERED: METHOCARBAMOL 500 MG TABLET PO PRN (08:59)
[2022-03-13] MEDS ORDERED: ONDANSETRON *ODT* 4 MG TABLET SL PRN (08:59)
[2022-03-13] MEDS ORDERED: chlordiazePOXIDE HCL 25 MG CAPSULE PO PRN (08:59)
[2022-03-13] MEDS ORDERED: ACETAMINOPHEN 325 MG TABLET (FP) PO PRN ×2 (08:59)
[2022-03-13] MEDS ORDERED: IBUPROFEN 400 MG TABLET (FP) PO PRN (08:59)
[2022-03-13] MEDS ORDERED: MAG HYDROX/AL HYDROX/SIMETH 30 ML UNIT-DOSE CUP PO PRN (08:59)
[2022-03-13] MEDS ORDERED: MAGNESIUM CITRATE 300 ML BOTTLE PO PRN (08:59)
[2022-03-13] MEDS ORDERED: DICYCLOMINE HCL 10 MG CAPSULE PO PRN (08:59)
[2022-03-13] MEDS ORDERED: LOPERAMIDE HCL 2 MG CAPSULE PO PRN (08:59)
[2022-03-13] MEDS ORDERED: IBUPROFEN 600 MG TABLET (FP) PO PRN (08:59)
[2022-03-13] MEDS ORDERED: NICOTINE 10 MG CARTRIDGE (INHALER) IH PRN (08:59)
[2022-03-13] MEDS ORDERED: BENZOCAINE/MENTHOL (CHLORASEPTIC ) LOZENGE MM PRN (08:59)
[2022-03-13] MEDS ORDERED: BISMUTH SUBSALICYLATE 524 MG/30 ML PO PRN (08:59)
[2022-03-13] MEDS ORDERED: hydrOXYzine PAMOATE 25 MG CAPSULE (FP) PO ONE (09:59)
[2022-03-13] MEDS ORDERED: chlordiazePOXIDE HCL 25 MG CAPSULE ONE (09:59)
[2022-03-13] MEDS: hydrOXYzine PAMOATE 25 MG CAPSULE (FP) PO SCH ×4 (10:02→22:44)
[2022-03-13] MEDS: chlordiazePOXIDE HCL 25 MG CAPSULE PO SCH ×3 (10:03→22:44)
[2022-03-13] MEDS: PRENATAL VITAMINS W/ FOLIC ACID TABLET (FP) PO SCH (10:20)
[2022-03-13] MEDS ORDERED: HYDROCHLOROTHIAZIDE 25 MG TABLET (FP) PO SCH (10:45)
[2022-03-13 16:09] LABS: HEMATOCRIT 37.5 % (35.4-49); HEMOGLOBIN 12.9 GM/dL (11.7-16.9); MCH 30.3 pg (25.7-33.7); MCHC 34.5 g/dl (32.0-35.9); MEAN CELL VOLUME 87.9 fl (80-96); MEAN PLT VOLUME 7.9 fl (7.5-11.1); PLATELET COUNT 279 10^3/uL (134-434); RBC 4.26 M/mm3 (4.00-5.60); RDW 13.5 % (11.9-15.9); WHITE BLOOD COUNT 4.3 K/mm3 (4.0-10.0)
[2022-03-13 16:17] LABS: CALCIUM 9.2 mg/dL (8.5-10.1)
[2022-03-13 16:18] LABS: ALBUMIN 3.4 g/dl (3.4-5.0); BLOOD UREA NITROGEN 18.9 mg/dL (7-18)
[2022-03-13 16:21] LABS: CREATININE 1.1 mg/dL (0.55-1.3)
[2022-03-13 16:22] LABS: BILIRUBIN,TOTAL 0.6 mg/dL (0.2-1); TOT PROT 7.1 g/dl (6.4-8.2)
[2022-03-13] MEDS: THIAMINE HCL 100 MG TABLET (FP) PO SCH (22:39)
[2022-03-13] MEDS: QUEtiapine FUMARATE 200 MG TABLET PO SCH (22:39)
[2022-03-13] MEDS: MELATONIN 5 MG TABLETS PO SCH (22:44)
[2022-03-14] MEDS: hydrOXYzine PAMOATE 25 MG CAPSULE (FP) PO SCH ×5 (06:00→22:25)
[2022-03-14] MEDS: chlordiazePOXIDE HCL 25 MG CAPSULE PO SCH ×4 (06:00→22:25)
[2022-03-14] MEDS ORDERED: EMTRICITABINE/TENOFOV ALAFENAM (DESCOVY) TABLET PO SCH (10:00)
[2022-03-14] MEDS ORDERED: HYDROCHLOROTHIAZIDE 25 MG TABLET (FP) PO SCH (10:00)
[2022-03-14] MEDS ORDERED: DOLUTEGRAVIR SODIUM 50 MG TABLET (NON-FORMULARY) PO SCH (10:00)
[2022-03-14] MEDS: PRENATAL VITAMINS W/ FOLIC ACID TABLET (FP) PO SCH (10:09)
[2022-03-14] MEDS: MELATONIN 5 MG TABLETS PO SCH (22:24)
[2022-03-14] MEDS: QUEtiapine FUMARATE 200 MG TABLET PO SCH (22:24)
[2022-03-14] MEDS: THIAMINE HCL 100 MG TABLET (FP) PO SCH (22:26)
[2022-03-15] MEDS ORDERED: chlordiazePOXIDE HCL 25 MG CAPSULE PO SCH (05:00)
[2022-03-15] MEDS: hydrOXYzine PAMOATE 25 MG CAPSULE (FP) PO SCH (06:43)
[2022-03-15 09:05] VITALS: BP 123/65; PULSE 75; TEMP 97.3
[2022-03-16] MEDS ORDERED: chlordiazePOXIDE HCL 10 MG CAPSULE PO PRN
[2022-03-16] MEDS ORDERED: chlordiazePOXIDE HCL 10 MG CAPSULE PO SCH (05:00)
[2022-03-17] MEDS ORDERED: chlordiazePOXIDE HCL 10 MG CAPSULE PO SCH (05:00)
[2022-03-18] MEDS ORDERED: chlordiazePOXIDE HCL 10 MG CAPSULE PO ONE (05:00)
== END 2022-03-15 09:40 | disposition left against medical advice (07) | DRG 774 ==
LOC: YASAS 08:03 → Y6N 09:40
PROVIDERS: ADMIT Allergy & Immunology; ATTEND Surgery
PROC: HZ2ZZZZ Detoxification Services for Substance Abuse Treatment (ICD-10-PCS; principal; 2022-03-13)
DX: F10.230 Alcohol dependence with withdrawal, uncomplicated (principal); F14.20 Cocaine dependence, uncomplicated; F12.20 Cannabis dependence, uncomplicated; F17.210 Nicotine dependence, cigarettes, uncomplicated; F19.24 Other psychoactive substance dependence with psychoactive substance-induced mood disorder; F60.2 Antisocial personality disorder; F39 Unspecified mood [affective] disorder; F32.A Depression, unspecified; F41.8 Other specified anxiety disorders; I10 Essential (primary) hypertension; R63.4 Abnormal weight loss; Z68.20 Body mass index [BMI] 20.0-20.9, adult; Z20.822 Contact with and (suspected) exposure to COVID-19; F91.8 Other conduct disorders; Z91.19 Patient's noncompliance with other medical treatment and regimen
CPT/HCPCS: 36415; 80053; 85027; 86780; 87811; C9803-CS; U0003; U0005

== ENCOUNTER 2022-04-08 10:59 | Inpatient (IN) | payer OTHER ==
[2022-04-08 11:37] VITALS: BMI 20.9
[2022-04-08] MEDS ORDERED: NICOTINE 10 MG CARTRIDGE (INHALER) IH PRN (12:07)
[2022-04-08] MEDS ORDERED: BISMUTH SUBSALICYLATE 262 MG/15 ML BTL PO PRN (12:07)
[2022-04-08] MEDS ORDERED: LOPERAMIDE HCL 2 MG CAPSULE PO PRN (12:07)
[2022-04-08] MEDS ORDERED: BENZOCAINE/MENTHOL (CHLORASEPTIC ) LOZENGE MM PRN (12:07)
[2022-04-08] MEDS ORDERED: METHOCARBAMOL 500 MG TABLET PO PRN (12:07)
[2022-04-08] MEDS ORDERED: ONDANSETRON *ODT* 4 MG TABLET SL PRN (12:07)
[2022-04-08] MEDS ORDERED: IBUPROFEN 600 MG TABLET (FP) PO PRN (12:07)
[2022-04-08] MEDS ORDERED: IBUPROFEN 400 MG TABLET (FP) PO PRN (12:07)
[2022-04-08] MEDS ORDERED: DICYCLOMINE HCL 10 MG CAPSULE PO PRN (12:07)
[2022-04-08] MEDS ORDERED: MAG HYDROX/AL HYDROX/SIMETH 30 ML UNIT-DOSE CUP PO PRN (12:07)
[2022-04-08] MEDS ORDERED: MAGNESIUM CITRATE 300 ML BOTTLE PO PRN (12:07)
[2022-04-08] MEDS ORDERED: MAGNESIUM HYDROX 2400MG/30ML ORAL SUSPENSION 30 ML CUP PO PRN (12:07)
[2022-04-08] MEDS ORDERED: ACETAMINOPHEN 325 MG TABLET (FP) PO PRN ×2 (12:07)
[2022-04-08] MEDS: NICOTINE 7 MG/24 HOURS TOPICAL PATCH TD SCH (12:57)
[2022-04-08] MEDS: hydrOXYzine PAMOATE 25 MG CAPSULE (FP) PO SCH ×3 (13:07→22:25)
[2022-04-08 20:34] LABS: HEMATOCRIT 39.5 % (35.4-49); HEMOGLOBIN 13.1 GM/dL (11.7-16.9); MCH 29.9 pg (25.7-33.7); MCHC 33.3 g/dl (32.0-35.9); MEAN CELL VOLUME 89.9 fl (80-96); MEAN PLT VOLUME 7.8 fl (7.5-11.1); PLATELET COUNT 282 10^3/uL (134-434); RBC 4.39 M/mm3 (4.00-5.60); RDW 13.9 % (11.9-15.9); WHITE BLOOD COUNT 5.7 K/mm3 (4.0-10.0)
[2022-04-08 20:35] LABS: CALCIUM 8.9 mg/dL (8.5-10.1)
[2022-04-08 20:36] LABS: ALBUMIN 3.9 g/dl (3.4-5.0); BLOOD UREA NITROGEN 20.6 mg/dL (7-18); CREATININE 1.2 mg/dL (0.55-1.3)
[2022-04-08 20:37] LABS: TOT PROT 7.8 g/dl (6.4-8.2)
[2022-04-08 20:38] LABS: BILIRUBIN,TOTAL 0.6 mg/dL (0.2-1)
[2022-04-08] MEDS ORDERED: THIAMINE HCL 100 MG TABLET (FP) PO SCH (22:00)
[2022-04-08] MEDS ORDERED: MELATONIN 5 MG TABLETS PO SCH (22:00)
[2022-04-08] MEDS ORDERED: QUEtiapine FUMARATE 200 MG TABLET PO SCH (22:00)
[2022-04-09] MEDS: hydrOXYzine PAMOATE 25 MG CAPSULE (FP) PO SCH ×2 (05:48→10:26)
[2022-04-09] MEDS ORDERED: PRENATAL VITAMINS W/ FOLIC ACID TABLET (FP) PO SCH (10:00)
[2022-04-09] MEDS: NICOTINE 7 MG/24 HOURS TOPICAL PATCH TD SCH (10:26)
[2022-04-09 12:59] VITALS: BP 126/77; PULSE 66; TEMP 98
== END 2022-04-09 14:43 | disposition home or self-care (01) | DRG 774 ==
LOC: YASAS 10:59 → Y6N 12:13
PROVIDERS: ADMIT Allergy & Immunology; ATTEND Surgery
PROC: HZ2ZZZZ Detoxification Services for Substance Abuse Treatment (ICD-10-PCS; principal; 2022-04-08)
DX: F10.230 Alcohol dependence with withdrawal, uncomplicated (principal); F14.20 Cocaine dependence, uncomplicated; F12.10 Cannabis abuse, uncomplicated; F17.213 Nicotine dependence, cigarettes, with withdrawal; F41.9 Anxiety disorder, unspecified; F19.282 Other psychoactive substance dependence with psychoactive substance-induced sleep disorder; F19.280 Other psychoactive substance dependence with psychoactive substance-induced anxiety disorder; F39 Unspecified mood [affective] disorder; F32.A Depression, unspecified; I10 Essential (primary) hypertension; Z21 Asymptomatic human immunodeficiency virus [HIV] infection status; R63.4 Abnormal weight loss; Z87.438 Personal history of other diseases of male genital organs; Z91.51 Personal history of suicidal behavior; Z56.0 Unemployment, unspecified; Z59.01 Sheltered homelessness
CPT/HCPCS: 36415; 80053; 85027; 86780; C9803-CS; U0003; U0005

== ENCOUNTER 2022-04-22 07:09 | Inpatient (IN) | payer OTHER ==
[2022-04-22 08:47] VITALS: BMI 20.6
[2022-04-22] MEDS ORDERED: chlordiazePOXIDE HCL 25 MG CAPSULE PO PRN (09:13)
[2022-04-22] MEDS ORDERED: ONDANSETRON *ODT* 4 MG TABLET SL PRN (09:13)
[2022-04-22] MEDS ORDERED: IBUPROFEN 600 MG TABLET (FP) PO PRN (09:13)
[2022-04-22] MEDS ORDERED: MAGNESIUM HYDROX 2400MG/30ML ORAL SUSPENSION 30 ML CUP PO PRN (09:13)
[2022-04-22] MEDS ORDERED: BENZOCAINE/MENTHOL (CHLORASEPTIC ) LOZENGE MM PRN (09:13)
[2022-04-22] MEDS ORDERED: DICYCLOMINE HCL 10 MG CAPSULE PO PRN (09:13)
[2022-04-22] MEDS ORDERED: MAGNESIUM CITRATE 300 ML BOTTLE PO PRN (09:13)
[2022-04-22] MEDS ORDERED: NICOTINE 10 MG CARTRIDGE (INHALER) IH PRN (09:13)
[2022-04-22] MEDS ORDERED: ACETAMINOPHEN 325 MG TABLET (FP) PO PRN ×2 (09:13)
[2022-04-22] MEDS ORDERED: BISMUTH SUBSALICYLATE 524 MG/30 ML PO PRN (09:13)
[2022-04-22] MEDS ORDERED: LOPERAMIDE HCL 2 MG CAPSULE PO PRN (09:13)
[2022-04-22] MEDS ORDERED: MAG HYDROX/AL HYDROX/SIMETH 30 ML UNIT-DOSE CUP PO PRN (09:13)
[2022-04-22] MEDS ORDERED: IBUPROFEN 400 MG TABLET (FP) PO PRN (09:13)
[2022-04-22] MEDS ORDERED: HYDROCHLOROTHIAZIDE 12.5 MG CAPSULE (FP) ONE (09:25)
[2022-04-22] MEDS ORDERED: hydrOXYzine PAMOATE 25 MG CAPSULE (FP) PO ONE (09:25)
[2022-04-22] MEDS: HYDROCHLOROTHIAZIDE 25 MG TABLET (FP) PO SCH (10:10)
[2022-04-22] MEDS: METHOCARBAMOL 500 MG TABLET PO PRN (10:28)
[2022-04-22] MEDS: hydrOXYzine PAMOATE 25 MG CAPSULE (FP) PO SCH ×4 (10:28→21:49)
[2022-04-22] MEDS: PRENATAL VITAMINS W/ FOLIC ACID TABLET (FP) PO SCH (10:28)
[2022-04-22] MEDS: SULFAMETHOXAZOLE/TRIMETHOPRIM 800MG/160MG D.S. TABLET PO SCH ×2 (10:29→21:48)
[2022-04-22] MEDS: chlordiazePOXIDE HCL 25 MG CAPSULE PO SCH ×3 (10:29→22:49)
[2022-04-22 15:17] LABS: HEMATOCRIT 40.1 % (35.4-49); HEMOGLOBIN 13.2 GM/dL (11.7-16.9); MCH 29.5 pg (25.7-33.7); MEAN CELL VOLUME 89.5 fl (80-96); MEAN PLT VOLUME 7.5 fl (7.5-11.1); PLATELET COUNT 278 10^3/uL (134-434); RBC 4.48 M/mm3 (4.00-5.60); RDW 13.4 % (11.9-15.9); WHITE BLOOD COUNT 3.9 K/mm3 (4.0-10.0)
[2022-04-22 15:18] LABS: ALBUMIN 3.5 g/dl (3.4-5.0); BLOOD UREA NITROGEN 13.2 mg/dL (7-18); CALCIUM 8.7 mg/dL (8.5-10.1)
[2022-04-22 15:22] LABS: CREATININE 1.1 mg/dL (0.55-1.3)
[2022-04-22 15:24] LABS: BILIRUBIN,TOTAL 0.3 mg/dL (0.2-1); TOT PROT 7.5 g/dl (6.4-8.2)
[2022-04-22] MEDS: THIAMINE HCL 100 MG TABLET (FP) PO SCH (21:48)
[2022-04-22] MEDS: QUEtiapine FUMARATE 200 MG TABLET PO SCH (21:48)
[2022-04-22] MEDS ORDERED: MELATONIN 5 MG TABLETS PO SCH (22:00)
[2022-04-23] MEDS: chlordiazePOXIDE HCL 25 MG CAPSULE PO SCH ×4 (06:07→22:56)
[2022-04-23] MEDS: hydrOXYzine PAMOATE 25 MG CAPSULE (FP) PO SCH ×5 (06:19→22:56)
[2022-04-23] MEDS: SULFAMETHOXAZOLE/TRIMETHOPRIM 800MG/160MG D.S. TABLET PO SCH ×2 (10:03→22:56)
[2022-04-23] MEDS: HYDROCHLOROTHIAZIDE 25 MG TABLET (FP) PO SCH (10:03)
[2022-04-23] MEDS: METHOCARBAMOL 500 MG TABLET PO PRN (10:04)
[2022-04-23] MEDS: PRENATAL VITAMINS W/ FOLIC ACID TABLET (FP) PO SCH (10:04)
[2022-04-23] MEDS: QUEtiapine FUMARATE 200 MG TABLET PO SCH (22:56)
[2022-04-23] MEDS: THIAMINE HCL 100 MG TABLET (FP) PO SCH (22:56)
[2022-04-24] MEDS: chlordiazePOXIDE HCL 25 MG CAPSULE PO SCH ×4 (06:21→22:27)
[2022-04-24] MEDS: hydrOXYzine PAMOATE 25 MG CAPSULE (FP) PO SCH ×5 (06:21→22:27)
[2022-04-24] MEDS: PRENATAL VITAMINS W/ FOLIC ACID TABLET (FP) PO SCH (10:00)
[2022-04-24] MEDS: SULFAMETHOXAZOLE/TRIMETHOPRIM 800MG/160MG D.S. TABLET PO SCH ×2 (10:00→22:27)
[2022-04-24] MEDS: HYDROCHLOROTHIAZIDE 25 MG TABLET (FP) PO SCH (10:00)
[2022-04-24] MEDS: METHOCARBAMOL 500 MG TABLET PO PRN (10:00)
[2022-04-24] MEDS: QUEtiapine FUMARATE 200 MG TABLET PO SCH (22:27)
[2022-04-24] MEDS: THIAMINE HCL 100 MG TABLET (FP) PO SCH (22:27)
[2022-04-25] MEDS ORDERED: chlordiazePOXIDE HCL 10 MG CAPSULE PO PRN
[2022-04-25] MEDS: hydrOXYzine PAMOATE 25 MG CAPSULE (FP) PO SCH ×2 (06:09→09:44)
[2022-04-25] MEDS: chlordiazePOXIDE HCL 10 MG CAPSULE PO SCH ×2 (06:09→10:01)
[2022-04-25 09:44] VITALS: BP 110/56; PULSE 60; TEMP 98
[2022-04-25] MEDS: PRENATAL VITAMINS W/ FOLIC ACID TABLET (FP) PO SCH (09:44)
[2022-04-25] MEDS: SULFAMETHOXAZOLE/TRIMETHOPRIM 800MG/160MG D.S. TABLET PO SCH (09:44)
[2022-04-25] MEDS: METHOCARBAMOL 500 MG TABLET PO PRN (09:45)
[2022-04-25] MEDS: HYDROCHLOROTHIAZIDE 25 MG TABLET (FP) PO SCH (09:45)
[2022-04-26] MEDS ORDERED: chlordiazePOXIDE HCL 10 MG CAPSULE PO SCH (05:00)
[2022-04-27] MEDS ORDERED: chlordiazePOXIDE HCL 10 MG CAPSULE PO ONE (05:00)
== END 2022-04-25 13:27 | disposition home or self-care (01) | DRG 774 ==
LOC: YASAS 07:09 → Y6N 09:21
PROVIDERS: ADMIT Allergy & Immunology; ATTEND Surgery
PROC: HZ2ZZZZ Detoxification Services for Substance Abuse Treatment (ICD-10-PCS; principal; 2022-04-22)
DX: F10.230 Alcohol dependence with withdrawal, uncomplicated (principal); F14.20 Cocaine dependence, uncomplicated; F16.20 Hallucinogen dependence, uncomplicated; F12.20 Cannabis dependence, uncomplicated; F17.210 Nicotine dependence, cigarettes, uncomplicated; F19.282 Other psychoactive substance dependence with psychoactive substance-induced sleep disorder; F19.24 Other psychoactive substance dependence with psychoactive substance-induced mood disorder; F39 Unspecified mood [affective] disorder; F41.9 Anxiety disorder, unspecified; U07.1 COVID-19; Z21 Asymptomatic human immunodeficiency virus [HIV] infection status; I10 Essential (primary) hypertension; H54.62 Unqualified visual loss, left eye, normal vision right eye; R63.4 Abnormal weight loss; Z68.20 Body mass index [BMI] 20.0-20.9, adult; Z91.51 Personal history of suicidal behavior; Z91.410 Personal history of adult physical and sexual abuse
CPT/HCPCS: 36415; 80053; 85027; 86780; 87811; C9803-CS; U0003; U0005

== ENCOUNTER 2022-06-06 08:27 | Inpatient (IN) | payer OTHER ==
[2022-06-06 09:10] VITALS: BMI 21.7
[2022-06-06] MEDS ORDERED: BISMUTH SUBSALICYLATE 524 MG/30 ML PO PRN (10:04)
[2022-06-06] MEDS ORDERED: BENZOCAINE/MENTHOL (CHLORASEPTIC ) LOZENGE MM PRN (10:04)
[2022-06-06] MEDS ORDERED: DICYCLOMINE HCL 10 MG CAPSULE PO PRN (10:04)
[2022-06-06] MEDS ORDERED: chlordiazePOXIDE HCL 25 MG CAPSULE PO PRN (10:04)
[2022-06-06] MEDS ORDERED: MAGNESIUM CITRATE 300 ML BOTTLE PO PRN (10:04)
[2022-06-06] MEDS ORDERED: METHOCARBAMOL 500 MG TABLET PO PRN (10:04)
[2022-06-06] MEDS ORDERED: ACETAMINOPHEN 325 MG TABLET (FP) PO PRN ×2 (10:04)
[2022-06-06] MEDS ORDERED: MAGNESIUM HYDROX 2400MG/30ML ORAL SUSPENSION 30 ML CUP PO PRN (10:04)
[2022-06-06] MEDS ORDERED: NICOTINE POLACRILEX 2 MG GUM BUC PRN (10:04)
[2022-06-06] MEDS ORDERED: IBUPROFEN 600 MG TABLET (FP) PO PRN (10:04)
[2022-06-06] MEDS ORDERED: MAG HYDROX/AL HYDROX/SIMETH 30 ML UNIT-DOSE CUP PO PRN (10:04)
[2022-06-06] MEDS ORDERED: LOPERAMIDE HCL 2 MG CAPSULE PO PRN (10:04)
[2022-06-06] MEDS ORDERED: ONDANSETRON *ODT* 4 MG TABLET SL PRN (10:04)
[2022-06-06] MEDS ORDERED: NICOTINE 10 MG CARTRIDGE (INHALER) IH PRN (10:04)
[2022-06-06] MEDS ORDERED: IBUPROFEN 400 MG TABLET (FP) PO PRN (10:04)
[2022-06-06] MEDS ORDERED: chlordiazePOXIDE HCL 25 MG CAPSULE ONE (12:46)
[2022-06-06] MEDS: chlordiazePOXIDE HCL 25 MG CAPSULE PO SCH ×3 (12:48→22:19)
[2022-06-06] MEDS: HYDROCHLOROTHIAZIDE 25 MG TABLET (FP) PO SCH (13:27)
[2022-06-06] MEDS: PRENATAL VITAMINS W/ FOLIC ACID TABLET (FP) PO SCH (13:27)
[2022-06-06] MEDS: hydrOXYzine PAMOATE 25 MG CAPSULE (FP) PO SCH ×3 (13:27→22:19)
[2022-06-06 14:55] LABS: CALCIUM 8.9 mg/dL (8.5-10.1)
[2022-06-06 14:56] LABS: ALBUMIN 3.4 g/dl (3.4-5.0)
[2022-06-06 15:00] LABS: TOT PROT 7.1 g/dl (6.4-8.2)
[2022-06-06 15:02] LABS: BILIRUBIN,TOTAL 0.6 mg/dL (0.2-1)
[2022-06-06 15:03] LABS: HEMOGLOBIN 13.2 GM/dL (11.7-16.9); MCH 30.5 pg (25.7-33.7); MEAN CELL VOLUME 89.7 fl (80-96); MEAN PLT VOLUME 7.4 fl (7.5-11.1); PLATELET COUNT 287 10^3/uL (134-434); RBC 4.34 M/mm3 (4.00-5.60); RDW 15.5 % (11.9-15.9); WHITE BLOOD COUNT 6.3 K/mm3 (4.0-10.0)
[2022-06-06] MEDS ORDERED: QUEtiapine FUMARATE 200 MG TABLET PO SCH (22:00)
[2022-06-06] MEDS: THIAMINE HCL 100 MG TABLET (FP) PO SCH (22:19)
[2022-06-06] MEDS: QUEtiapine FUMARATE 200 MG TABLET PO SCH (22:19)
[2022-06-06] MEDS: MELATONIN 5 MG TABLETS PO SCH (22:19)
[2022-06-07] MEDS: hydrOXYzine PAMOATE 25 MG CAPSULE (FP) PO SCH ×5 (06:40→22:12)
[2022-06-07] MEDS: chlordiazePOXIDE HCL 25 MG CAPSULE PO SCH ×4 (06:40→22:11)
[2022-06-07] MEDS: PRENATAL VITAMINS W/ FOLIC ACID TABLET (FP) PO SCH (10:57)
[2022-06-07] MEDS: HYDROCHLOROTHIAZIDE 25 MG TABLET (FP) PO SCH (10:58)
[2022-06-07] MEDS: THIAMINE HCL 100 MG TABLET (FP) PO SCH (22:12)
[2022-06-07] MEDS: QUEtiapine FUMARATE 200 MG TABLET PO SCH (22:12)
[2022-06-07] MEDS: MELATONIN 5 MG TABLETS PO SCH (22:13)
[2022-06-08] MEDS: hydrOXYzine PAMOATE 25 MG CAPSULE (FP) PO SCH ×5 (06:38→22:19)
[2022-06-08] MEDS: chlordiazePOXIDE HCL 25 MG CAPSULE PO SCH ×4 (06:38→22:19)
[2022-06-08] MEDS: HYDROCHLOROTHIAZIDE 25 MG TABLET (FP) PO SCH (11:15)
[2022-06-08] MEDS: PRENATAL VITAMINS W/ FOLIC ACID TABLET (FP) PO SCH (11:16)
[2022-06-08] MEDS: MELATONIN 5 MG TABLETS PO SCH (22:19)
[2022-06-08] MEDS: QUEtiapine FUMARATE 200 MG TABLET PO SCH (22:19)
[2022-06-08] MEDS: THIAMINE HCL 100 MG TABLET (FP) PO SCH (22:19)
[2022-06-09] MEDS ORDERED: chlordiazePOXIDE HCL 10 MG CAPSULE PO PRN
[2022-06-09] MEDS: hydrOXYzine PAMOATE 25 MG CAPSULE (FP) PO SCH ×5 (05:43→22:30)
[2022-06-09] MEDS: chlordiazePOXIDE HCL 10 MG CAPSULE PO SCH ×4 (05:43→22:30)
[2022-06-09 09:25] VITALS: RESP 18
[2022-06-09] MEDS: PRENATAL VITAMINS W/ FOLIC ACID TABLET (FP) PO SCH (10:37)
[2022-06-09] MEDS: HYDROCHLOROTHIAZIDE 25 MG TABLET (FP) PO SCH (10:37)
[2022-06-09] MEDS: DOLUTEGRAVIR SODIUM 50 MG TABLET (NON-FORMULARY) PO SCH (13:25)
[2022-06-09] MEDS: EMTRICITABINE/TENOFOV ALAFENAM (DESCOVY) TABLET PO SCH (13:25)
[2022-06-09] MEDS: THIAMINE HCL 100 MG TABLET (FP) PO SCH (22:30)
[2022-06-09] MEDS: QUEtiapine FUMARATE 200 MG TABLET PO SCH (22:30)
[2022-06-09] MEDS: MELATONIN 5 MG TABLETS PO SCH (22:30)
[2022-06-10] MEDS: chlordiazePOXIDE HCL 10 MG CAPSULE PO SCH ×2 (05:40→18:03)
[2022-06-10] MEDS: hydrOXYzine PAMOATE 25 MG CAPSULE (FP) PO SCH ×5 (05:40→22:19)
[2022-06-10] MEDS: PRENATAL VITAMINS W/ FOLIC ACID TABLET (FP) PO SCH (10:10)
[2022-06-10] MEDS: HYDROCHLOROTHIAZIDE 25 MG TABLET (FP) PO SCH (10:10)
[2022-06-10] MEDS: DOLUTEGRAVIR SODIUM 50 MG TABLET (NON-FORMULARY) PO SCH (10:10)
[2022-06-10] MEDS: EMTRICITABINE/TENOFOV ALAFENAM (DESCOVY) TABLET PO SCH (10:10)
[2022-06-10] MEDS: QUEtiapine FUMARATE 200 MG TABLET PO SCH (22:19)
[2022-06-10] MEDS: THIAMINE HCL 100 MG TABLET (FP) PO SCH (22:19)
[2022-06-10] MEDS: MELATONIN 5 MG TABLETS PO SCH (22:20)
[2022-06-11] MEDS ORDERED: chlordiazePOXIDE HCL 10 MG CAPSULE PO ONE (05:00)
[2022-06-11] MEDS: hydrOXYzine PAMOATE 25 MG CAPSULE (FP) PO SCH ×2 (05:57→10:10)
[2022-06-11 09:49] VITALS: BP 133/67; PULSE 74; TEMP 98.3
[2022-06-11] MEDS: HYDROCHLOROTHIAZIDE 25 MG TABLET (FP) PO SCH (10:09)
[2022-06-11] MEDS: PRENATAL VITAMINS W/ FOLIC ACID TABLET (FP) PO SCH (10:09)
[2022-06-11] MEDS: DOLUTEGRAVIR SODIUM 50 MG TABLET (NON-FORMULARY) PO SCH (10:11)
[2022-06-11] MEDS: EMTRICITABINE/TENOFOV ALAFENAM (DESCOVY) TABLET PO SCH (10:11)
== END 2022-06-11 10:14 | disposition home or self-care (01) | DRG 774 ==
LOC: YASAS 08:27 → Y3N 12:36
PROVIDERS: ADMIT Allergy & Immunology; ATTEND Surgery
PROC: HZ2ZZZZ Detoxification Services for Substance Abuse Treatment (ICD-10-PCS; principal; 2022-06-06)
DX: F10.230 Alcohol dependence with withdrawal, uncomplicated (principal); F14.20 Cocaine dependence, uncomplicated; F12.20 Cannabis dependence, uncomplicated; F17.210 Nicotine dependence, cigarettes, uncomplicated; F31.9 Bipolar disorder, unspecified; F41.9 Anxiety disorder, unspecified; Z21 Asymptomatic human immunodeficiency virus [HIV] infection status; G47.00 Insomnia, unspecified; I10 Essential (primary) hypertension; Z86.59 Personal history of other mental and behavioral disorders; Z86.19 Personal history of other infectious and parasitic diseases; Z91.51 Personal history of suicidal behavior
CPT/HCPCS: 36415; 80053; 85027; 86780; C9803-CS; U0003; U0005

== ENCOUNTER 2022-07-15 08:08 | Inpatient (IN) | payer OTHER ==
[2022-07-15 08:43] VITALS: BMI 20.9
[2022-07-15] MEDS ORDERED: IBUPROFEN 400 MG TABLET (FP) PO PRN (09:02)
[2022-07-15] MEDS ORDERED: MAGNESIUM HYDROX 2400MG/30ML ORAL SUSPENSION 30 ML CUP PO PRN (09:02)
[2022-07-15] MEDS ORDERED: MAGNESIUM CITRATE 300 ML BOTTLE PO PRN (09:02)
[2022-07-15] MEDS ORDERED: NALOXONE HCL (KLOXXADO) 8 MG SPRAY NS PRN (09:02)
[2022-07-15] MEDS ORDERED: MAG HYDROX/AL HYDROX/SIMETH 30 ML UNIT-DOSE CUP PO PRN (09:02)
[2022-07-15] MEDS ORDERED: DICYCLOMINE HCL 10 MG CAPSULE PO PRN (09:02)
[2022-07-15] MEDS ORDERED: BENZOCAINE/MENTHOL (CHLORASEPTIC ) LOZENGE MM PRN (09:02)
[2022-07-15] MEDS ORDERED: LOPERAMIDE HCL 2 MG CAPSULE PO PRN (09:02)
[2022-07-15] MEDS ORDERED: NICOTINE 10 MG CARTRIDGE (INHALER) IH PRN (09:02)
[2022-07-15] MEDS ORDERED: ACETAMINOPHEN 325 MG TABLET (FP) PO PRN ×2 (09:02)
[2022-07-15] MEDS ORDERED: METHOCARBAMOL 500 MG TABLET PO PRN (09:02)
[2022-07-15] MEDS ORDERED: IBUPROFEN 600 MG TABLET (FP) PO PRN (09:02)
[2022-07-15] MEDS ORDERED: ONDANSETRON *ODT* 4 MG TABLET SL PRN (09:02)
[2022-07-15] MEDS ORDERED: chlordiazePOXIDE HCL 25 MG CAPSULE PO PRN (09:02)
[2022-07-15] MEDS ORDERED: BISMUTH SUBSALICYLATE 524 MG/30 ML PO PRN (09:02)
[2022-07-15] MEDS: chlordiazePOXIDE HCL 25 MG CAPSULE PO SCH ×3 (10:27→23:10)
[2022-07-15] MEDS: HYDROCHLOROTHIAZIDE 25 MG TABLET (FP) PO SCH (10:27)
[2022-07-15] MEDS: hydrOXYzine PAMOATE 25 MG CAPSULE (FP) PO SCH ×4 (10:27→23:09)
[2022-07-15] MEDS: PRENATAL VITAMINS W/ FOLIC ACID TABLET (FP) PO SCH (10:27)
[2022-07-15 15:17] LABS: HEMOGLOBIN 13.9 GM/dL (11.7-16.9); MCH 29.5 pg (25.7-33.7); MCHC 33.2 g/dl (32.0-35.9); MEAN CELL VOLUME 89.1 fl (80-96); MEAN PLT VOLUME 7.7 fl (7.5-11.1); PLATELET COUNT 272 10^3/uL (134-434); RBC 4.72 M/mm3 (4.00-5.60); RDW 15.3 % (11.9-15.9)
[2022-07-15 15:42] LABS: ALBUMIN 3.5 g/dl (3.4-5.0); CALCIUM 9.2 mg/dL (8.5-10.1)
[2022-07-15 15:43] LABS: BLOOD UREA NITROGEN 17.7 mg/dL (7-18)
[2022-07-15 15:44] LABS: CREATININE 1.2 mg/dL (0.55-1.3)
[2022-07-15 15:46] LABS: BILIRUBIN,TOTAL 0.2 mg/dL (0.2-1); TOT PROT 7.7 g/dl (6.4-8.2)
[2022-07-15] MEDS: DOLUTEGRAVIR SODIUM 50 MG TABLET (NON-FORMULARY) PO SCH (17:41)
[2022-07-15] MEDS: EMTRICITABINE/TENOFOV ALAFENAM (DESCOVY) TABLET PO SCH (17:41)
[2022-07-15] MEDS: THIAMINE HCL 100 MG TABLET (FP) PO SCH (23:09)
[2022-07-15] MEDS: MELATONIN 5 MG TABLETS PO SCH (23:10)
[2022-07-16] MEDS: chlordiazePOXIDE HCL 25 MG CAPSULE PO SCH ×4 (06:05→22:14)
[2022-07-16] MEDS: hydrOXYzine PAMOATE 25 MG CAPSULE (FP) PO SCH ×5 (06:05→22:14)
[2022-07-16] MEDS: EMTRICITABINE/TENOFOV ALAFENAM (DESCOVY) TABLET PO SCH (07:14)
[2022-07-16] MEDS: DOLUTEGRAVIR SODIUM 50 MG TABLET (NON-FORMULARY) PO SCH (07:14)
[2022-07-16] MEDS: PRENATAL VITAMINS W/ FOLIC ACID TABLET (FP) PO SCH (11:23)
[2022-07-16] MEDS: HYDROCHLOROTHIAZIDE 25 MG TABLET (FP) PO SCH (11:23)
[2022-07-16] MEDS ORDERED: FLU VACC QS2022-23(6MOS UP)/PF 60 MCG/0.5 ML SYRINGE IM ONE (12:00)
[2022-07-16] MEDS ORDERED: LACTULOSE 20 GM/30 ML UDC (FOR ORAL USE ONLY) PO PRN (16:53)
[2022-07-16] MEDS ORDERED: QUEtiapine FUMARATE 200 MG TABLET PO SCH (22:00)
[2022-07-16] MEDS: THIAMINE HCL 100 MG TABLET (FP) PO SCH (22:14)
[2022-07-16] MEDS: MELATONIN 5 MG TABLETS PO SCH (22:14)
[2022-07-17] MEDS: chlordiazePOXIDE HCL 25 MG CAPSULE PO SCH ×2 (05:06→10:38)
[2022-07-17] MEDS: hydrOXYzine PAMOATE 25 MG CAPSULE (FP) PO SCH ×2 (05:06→10:38)
[2022-07-17] MEDS: EMTRICITABINE/TENOFOV ALAFENAM (DESCOVY) TABLET PO SCH (07:18)
[2022-07-17] MEDS: DOLUTEGRAVIR SODIUM 50 MG TABLET (NON-FORMULARY) PO SCH (07:18)
[2022-07-17 07:28] VITALS: TEMP 97.7
[2022-07-17 08:54] VITALS: BP 157/89; PULSE 72; RESP 18
[2022-07-17] MEDS ORDERED: LACTULOSE 20 GM/30 ML UDC (FOR ORAL USE ONLY) PO ONE (09:15)
[2022-07-17] MEDS: HYDROCHLOROTHIAZIDE 25 MG TABLET (FP) PO SCH (10:38)
[2022-07-17] MEDS: PRENATAL VITAMINS W/ FOLIC ACID TABLET (FP) PO SCH (10:38)
[2022-07-17] MEDS ORDERED: LACTULOSE 20 GM/30 ML UDC (FOR ORAL USE ONLY) PO SCH (14:00)
[2022-07-18] MEDS ORDERED: chlordiazePOXIDE HCL 10 MG CAPSULE PO PRN
[2022-07-18] MEDS ORDERED: chlordiazePOXIDE HCL 10 MG CAPSULE PO SCH (05:00)
[2022-07-19] MEDS ORDERED: chlordiazePOXIDE HCL 10 MG CAPSULE PO SCH (05:00)
[2022-07-20] MEDS ORDERED: chlordiazePOXIDE HCL 10 MG CAPSULE PO ONE (05:00)
== END 2022-07-17 09:48 | disposition left against medical advice (07) | DRG 770 ==
LOC: YASAS 08:08 → Y6N 09:26
PROVIDERS: ADMIT Allergy & Immunology; ATTEND Surgery
PROC: HZ2ZZZZ Detoxification Services for Substance Abuse Treatment (ICD-10-PCS; principal; 2022-07-15)
DX: F10.230 Alcohol dependence with withdrawal, uncomplicated (principal); F14.20 Cocaine dependence, uncomplicated; F12.10 Cannabis abuse, uncomplicated; F17.210 Nicotine dependence, cigarettes, uncomplicated; F39 Unspecified mood [affective] disorder; F25.9 Schizoaffective disorder, unspecified; F19.282 Other psychoactive substance dependence with psychoactive substance-induced sleep disorder; Z21 Asymptomatic human immunodeficiency virus [HIV] infection status; E72.20 Disorder of urea cycle metabolism, unspecified; H54.62 Unqualified visual loss, left eye, normal vision right eye; I10 Essential (primary) hypertension; R63.4 Abnormal weight loss; Z68.20 Body mass index [BMI] 20.0-20.9, adult; F91.8 Other conduct disorders; Z91.199 Patient's noncompliance with other medical treatment and regimen due to unspecified reason
CPT/HCPCS: 36415; 80053; 82140; 82962; 85027; 86780; C9803-CS; G0008; Q2036; U0003; U0005

== ENCOUNTER 2023-02-13 09:10 | Inpatient (IN) | payer OTHER ==
[2023-02-13 09:33] VITALS: BMI 20.2
[2023-02-13] MEDS ORDERED: guaiFENesin 600 MG TABLET.ER (FP) PO PRN (11:57)
[2023-02-13] MEDS ORDERED: NALOXONE HCL 0.4 MG/ML VIAL IM PRN (11:57)
[2023-02-13] MEDS ORDERED: ACETAMINOPHEN 325 MG TABLET (FP) PO PRN (11:57)
[2023-02-13] MEDS ORDERED: LOPERAMIDE HCL 2 MG CAPSULE PO PRN (11:57)
[2023-02-13] MEDS ORDERED: MAG HYDROX/AL HYDROX/SIMETH 30 ML UNIT-DOSE CUP PO PRN (11:57)
[2023-02-13] MEDS ORDERED: IBUPROFEN 600 MG TABLET (FP) PO PRN (11:57)
[2023-02-13] MEDS ORDERED: BENZONATATE 200 MG CAPSULE PO PRN (11:57)
[2023-02-13] MEDS ORDERED: IBUPROFEN 400 MG TABLET (FP) PO PRN (11:57)
[2023-02-13] MEDS ORDERED: NICOTINE 10 MG CARTRIDGE (INHALER) IH PRN (11:57)
[2023-02-13] MEDS ORDERED: BENZOCAINE/MENTHOL (CHLORASEPTIC ) LOZENGE MM PRN (11:57)
[2023-02-13] MEDS ORDERED: COLLOIDAL OATMEAL 1 BAR EACH TP PRN (11:57)
[2023-02-13] MEDS ORDERED: NICOTINE POLACRILEX 2 MG GUM BUC PRN (11:57)
[2023-02-13] MEDS ORDERED: AMMONIUM LACTATE 12% LOTION 225 GM BOTTLE TP PRN (11:57)
[2023-02-13] MEDS ORDERED: NALOXONE HCL (KLOXXADO) 8 MG SPRAY NS PRN (11:57)
[2023-02-13] MEDS ORDERED: POLYETHYLENE GLYCOL (HEALTHYLAX) 3350 17 GM PACKET PO PRN (11:57)
[2023-02-13] MEDS ORDERED: MAGNESIUM HYDROX 2400MG/30ML ORAL SUSPENSION 30 ML CUP PO PRN (11:57)
[2023-02-13] MEDS ORDERED: hydrOXYzine PAMOATE 25 MG CAPSULE (FP) PO PRN (11:57)
[2023-02-13 17:57] LABS: HEMATOCRIT 44.2 % (35.4-49); HEMOGLOBIN 14.8 GM/dL (11.7-16.9); MCH 29.5 pg (25.7-33.7); MCHC 33.5 g/dl (32.0-35.9); MEAN CELL VOLUME 88.1 fl (80-96); MEAN PLT VOLUME 7.8 fl (7.5-11.1); PLATELET COUNT 325 10^3/uL (134-434); RBC 5.02 M/mm3 (4.00-5.60); RDW 14.5 % (11.9-15.9); WHITE BLOOD COUNT 4.5 K/mm3 (4.0-10.0)
[2023-02-13 17:59] LABS: POTASSIUM 3.7 mmol/L (3.5-5.1)
[2023-02-13 18:05] LABS: BLOOD UREA NITROGEN 22.3 mg/dL (7-18); CALCIUM 9.4 mg/dL (8.5-10.1)
[2023-02-13 18:06] LABS: ALBUMIN 3.9 g/dl (3.4-5.0)
[2023-02-13 18:09] LABS: CREATININE 1.3 mg/dL (0.55-1.3)
[2023-02-13 18:10] LABS: BILIRUBIN,TOTAL 0.9 mg/dL (0.2-1)
[2023-02-13 18:25] LABS: SYPHILIS W/ RPR CONF NON-REACTIVE (NONREACTIVE)
[2023-02-13] MEDS: QUEtiapine FUMARATE 100 MG TABLET (FP) PO SCH (21:25)
[2023-02-13] MEDS: MELATONIN 5 MG TABLETS PO SCH (21:25)
[2023-02-13] MEDS: THIAMINE HCL 100 MG TABLET (FP) PO SCH (21:25)
[2023-02-14] MEDS: DOLUTEGRAVIR SODIUM 50 MG TABLET (NON-FORMULARY) PO SCH (10:04)
[2023-02-14] MEDS: HYDROCHLOROTHIAZIDE 25 MG TABLET (FP) PO SCH (10:04)
[2023-02-14] MEDS: EMTRICITABINE/TENOFOV ALAFENAM (DESCOVY) TABLET PO SCH (10:04)
[2023-02-14] MEDS: PRENATAL VITAMINS W/ FOLIC ACID TABLET (FP) PO SCH (10:04)
[2023-02-14 16:33] LABS: URINE APPEARANCE CLEAR; URINE BILIRUBIN NEGATIVE (NEGATIVE); URINE COLOR YELLOW; URINE GLUCOSE (UA) NEGATIVE (NEGATIVE); URINE KETONE NEGATIVE (NEGATIVE); URINE LEUK ESTERASE NEGATIVE (NEGATIVE); URINE NITRITE NEGATIVE (NEGATIVE); URINE PROTEIN NEGATIVE (NEGATIVE)
[2023-02-14] MEDS: QUEtiapine FUMARATE 100 MG TABLET (FP) PO SCH (21:13)
[2023-02-14] MEDS: THIAMINE HCL 100 MG TABLET (FP) PO SCH (21:13)
[2023-02-14] MEDS: MELATONIN 5 MG TABLETS PO SCH (21:13)
[2023-02-15] MEDS: HYDROCHLOROTHIAZIDE 25 MG TABLET (FP) PO SCH (09:53)
[2023-02-15] MEDS: DOLUTEGRAVIR SODIUM 50 MG TABLET (NON-FORMULARY) PO SCH (09:53)
[2023-02-15] MEDS: EMTRICITABINE/TENOFOV ALAFENAM (DESCOVY) TABLET PO SCH (09:54)
[2023-02-15] MEDS: PRENATAL VITAMINS W/ FOLIC ACID TABLET (FP) PO SCH (09:54)
[2023-02-15] MEDS: QUEtiapine FUMARATE 100 MG TABLET (FP) PO SCH (21:11)
[2023-02-15] MEDS: THIAMINE HCL 100 MG TABLET (FP) PO SCH (21:11)
[2023-02-15] MEDS: MELATONIN 5 MG TABLETS PO SCH (21:11)
[2023-02-16] MEDS: HYDROCHLOROTHIAZIDE 25 MG TABLET (FP) PO SCH (09:37)
[2023-02-16] MEDS: DOLUTEGRAVIR SODIUM 50 MG TABLET (NON-FORMULARY) PO SCH (09:37)
[2023-02-16] MEDS: PRENATAL VITAMINS W/ FOLIC ACID TABLET (FP) PO SCH (09:37)
[2023-02-16] MEDS: EMTRICITABINE/TENOFOV ALAFENAM (DESCOVY) TABLET PO SCH (09:38)
[2023-02-16] MEDS: THIAMINE HCL 100 MG TABLET (FP) PO SCH (21:23)
[2023-02-16] MEDS: MELATONIN 5 MG TABLETS PO SCH (21:24)
[2023-02-16] MEDS: QUEtiapine FUMARATE 100 MG TABLET (FP) PO SCH (21:24)
[2023-02-17] MEDS: PRENATAL VITAMINS W/ FOLIC ACID TABLET (FP) PO SCH (09:48)
[2023-02-17] MEDS: HYDROCHLOROTHIAZIDE 25 MG TABLET (FP) PO SCH (09:49)
[2023-02-17] MEDS: DOLUTEGRAVIR SODIUM 50 MG TABLET (NON-FORMULARY) PO SCH (09:49)
[2023-02-17] MEDS: EMTRICITABINE/TENOFOV ALAFENAM (DESCOVY) TABLET PO SCH (09:49)
[2023-02-17] MEDS: QUEtiapine FUMARATE 100 MG TABLET (FP) PO SCH (21:22)
[2023-02-17] MEDS: MELATONIN 5 MG TABLETS PO SCH (21:22)
[2023-02-17] MEDS: THIAMINE HCL 100 MG TABLET (FP) PO SCH (21:23)
[2023-02-18] MEDS: PRENATAL VITAMINS W/ FOLIC ACID TABLET (FP) PO SCH (10:06)
[2023-02-18] MEDS: HYDROCHLOROTHIAZIDE 25 MG TABLET (FP) PO SCH (10:06)
[2023-02-18] MEDS: DOLUTEGRAVIR SODIUM 50 MG TABLET (NON-FORMULARY) PO SCH (10:06)
[2023-02-18] MEDS: EMTRICITABINE/TENOFOV ALAFENAM (DESCOVY) TABLET PO SCH (10:06)
[2023-02-18] MEDS: THIAMINE HCL 100 MG TABLET (FP) PO SCH (21:14)
[2023-02-18] MEDS: MELATONIN 5 MG TABLETS PO SCH (21:14)
[2023-02-18] MEDS: QUEtiapine FUMARATE 200 MG TABLET PO SCH (21:15)
[2023-02-19] MEDS: PRENATAL VITAMINS W/ FOLIC ACID TABLET (FP) PO SCH (09:42)
[2023-02-19] MEDS: HYDROCHLOROTHIAZIDE 25 MG TABLET (FP) PO SCH (09:43)
[2023-02-19] MEDS: EMTRICITABINE/TENOFOV ALAFENAM (DESCOVY) TABLET PO SCH (09:43)
[2023-02-19] MEDS: DOLUTEGRAVIR SODIUM 50 MG TABLET (NON-FORMULARY) PO SCH (09:44)
[2023-02-19] MEDS: LACTULOSE 20 GM/30 ML UDC (FOR ORAL USE ONLY) PO SCH ×2 (13:46→21:03)
[2023-02-19] MEDS: THIAMINE HCL 100 MG TABLET (FP) PO SCH (21:03)
[2023-02-19] MEDS: QUEtiapine FUMARATE 200 MG TABLET PO SCH (21:04)
[2023-02-19] MEDS: MELATONIN 5 MG TABLETS PO SCH (21:04)
[2023-02-20] MEDS: LACTULOSE 20 GM/30 ML UDC (FOR ORAL USE ONLY) PO SCH ×3 (06:36→21:12)
[2023-02-20] MEDS: HYDROCHLOROTHIAZIDE 25 MG TABLET (FP) PO SCH (10:04)
[2023-02-20] MEDS: DOLUTEGRAVIR SODIUM 50 MG TABLET (NON-FORMULARY) PO SCH (10:04)
[2023-02-20] MEDS: EMTRICITABINE/TENOFOV ALAFENAM (DESCOVY) TABLET PO SCH (10:04)
[2023-02-20] MEDS: PRENATAL VITAMINS W/ FOLIC ACID TABLET (FP) PO SCH (10:04)
[2023-02-20] MEDS: MELATONIN 5 MG TABLETS PO SCH (21:12)
[2023-02-20] MEDS: QUEtiapine FUMARATE 200 MG TABLET PO SCH (21:12)
[2023-02-20] MEDS: THIAMINE HCL 100 MG TABLET (FP) PO SCH (21:12)
[2023-02-21] MEDS: LACTULOSE 20 GM/30 ML UDC (FOR ORAL USE ONLY) PO SCH ×3 (06:16→21:44)
[2023-02-21] MEDS: HYDROCHLOROTHIAZIDE 25 MG TABLET (FP) PO SCH (09:22)
[2023-02-21] MEDS: PRENATAL VITAMINS W/ FOLIC ACID TABLET (FP) PO SCH (09:22)
[2023-02-21] MEDS: EMTRICITABINE/TENOFOV ALAFENAM (DESCOVY) TABLET PO SCH (09:23)
[2023-02-21] MEDS: DOLUTEGRAVIR SODIUM 50 MG TABLET (NON-FORMULARY) PO SCH (09:24)
[2023-02-21] MEDS: MELATONIN 5 MG TABLETS PO SCH (21:36)
[2023-02-21] MEDS: THIAMINE HCL 100 MG TABLET (FP) PO SCH (21:36)
[2023-02-21] MEDS: QUEtiapine FUMARATE 200 MG TABLET PO SCH (21:36)
[2023-02-22] MEDS: LACTULOSE 20 GM/30 ML UDC (FOR ORAL USE ONLY) PO SCH ×3 (06:29→13:02)
[2023-02-22 07:36] VITALS: RESP 18; TEMP 97.1
[2023-02-22] MEDS: HYDROCHLOROTHIAZIDE 25 MG TABLET (FP) PO SCH (09:57)
[2023-02-22] MEDS: DOLUTEGRAVIR SODIUM 50 MG TABLET (NON-FORMULARY) PO SCH (09:57)
[2023-02-22] MEDS: EMTRICITABINE/TENOFOV ALAFENAM (DESCOVY) TABLET PO SCH (09:57)
[2023-02-22] MEDS: PRENATAL VITAMINS W/ FOLIC ACID TABLET (FP) PO SCH (09:58)
[2023-02-22 10:19] VITALS: BP 137/81; PULSE 78
== END 2023-02-22 13:52 | disposition left against medical advice (07) | DRG 770 ==
LOC: YASAS 09:10 → Y3E 11:57 → Y3W 02-18 11:50 → Y3E 02-18 11:53
PROVIDERS: ADMIT Allergy & Immunology; ATTEND Psychiatry & Neurology Pain Medicine
PROC: HZ42ZZZ Group Counseling for Substance Abuse Treatment, Cognitive-Behavioral (ICD-10-PCS; principal; 2023-02-13)
DX: F14.20 Cocaine dependence, uncomplicated (principal); F15.20 Other stimulant dependence, uncomplicated; F12.20 Cannabis dependence, uncomplicated; F17.210 Nicotine dependence, cigarettes, uncomplicated; F41.9 Anxiety disorder, unspecified; F32.A Depression, unspecified; Z21 Asymptomatic human immunodeficiency virus [HIV] infection status; E72.20 Disorder of urea cycle metabolism, unspecified; I10 Essential (primary) hypertension; H54.62 Unqualified visual loss, left eye, normal vision right eye; L84 Corns and callosities; Z91.51 Personal history of suicidal behavior
CPT/HCPCS: 36415; 80053; 81003; 82140; 82962; 85027; 86780; 86803; 87811; C9803-CS; U0003; U0005

== ENCOUNTER 2023-03-18 09:43 | Inpatient (IN) | payer OTHER ==
[2023-03-18 10:05] VITALS: BMI 20.9
[2023-03-18] MEDS ORDERED: LOPERAMIDE HCL 2 MG CAPSULE PO PRN (10:50)
[2023-03-18] MEDS ORDERED: NALOXONE HCL 0.4 MG/ML VIAL IM PRN (10:50)
[2023-03-18] MEDS ORDERED: NICOTINE 10 MG CARTRIDGE (INHALER) IH PRN (10:50)
[2023-03-18] MEDS ORDERED: IBUPROFEN 600 MG TABLET (FP) PO PRN (10:50)
[2023-03-18] MEDS ORDERED: IBUPROFEN 400 MG TABLET (FP) PO PRN (10:50)
[2023-03-18] MEDS ORDERED: BENZONATATE 200 MG CAPSULE PO PRN (10:50)
[2023-03-18] MEDS ORDERED: hydrOXYzine PAMOATE 25 MG CAPSULE (FP) PO PRN (10:50)
[2023-03-18] MEDS ORDERED: NALOXONE HCL (KLOXXADO) 8 MG SPRAY NS PRN (10:50)
[2023-03-18] MEDS ORDERED: MAGNESIUM HYDROX 2400MG/30ML ORAL SUSPENSION 30 ML CUP PO PRN (10:50)
[2023-03-18] MEDS ORDERED: BENZOCAINE/MENTHOL (CHLORASEPTIC ) LOZENGE MM PRN (10:50)
[2023-03-18] MEDS ORDERED: METHOCARBAMOL 500 MG TABLET PO PRN (10:50)
[2023-03-18] MEDS ORDERED: POLYETHYLENE GLYCOL (HEALTHYLAX) 3350 17 GM PACKET PO PRN (10:50)
[2023-03-18] MEDS ORDERED: ONDANSETRON *ODT* 4 MG TABLET SL PRN (10:50)
[2023-03-18] MEDS ORDERED: NICOTINE POLACRILEX 2 MG GUM BUC PRN (10:50)
[2023-03-18] MEDS ORDERED: BISMUTH SUBSALICYLATE 262 MG/15 ML BTL PO PRN (10:50)
[2023-03-18] MEDS ORDERED: MAG HYDROX/AL HYDROX/SIMETH 30 ML UNIT-DOSE CUP PO PRN (10:50)
[2023-03-18] MEDS ORDERED: COLLOIDAL OATMEAL 1 BAR EACH TP PRN (10:50)
[2023-03-18] MEDS ORDERED: ACETAMINOPHEN 325 MG TABLET (FP) PO PRN (10:50)
[2023-03-18] MEDS ORDERED: guaiFENesin 600 MG TABLET.ER (FP) PO PRN (10:50)
[2023-03-18] MEDS ORDERED: DICYCLOMINE HCL 10 MG CAPSULE PO PRN (10:50)
[2023-03-18] MEDS ORDERED: AMMONIUM LACTATE 12% LOTION 225 GM BOTTLE TP PRN (10:50)
[2023-03-18] MEDS: HYDROCHLOROTHIAZIDE 25 MG TABLET (FP) PO SCH (11:37)
[2023-03-18] MEDS: DOLUTEGRAVIR SODIUM 50 MG TABLET (NON-FORMULARY) PO SCH (11:37)
[2023-03-18] MEDS: EMTRICITABINE/TENOFOV ALAFENAM (DESCOVY) TABLET PO SCH (11:37)
[2023-03-18] MEDS: NICOTINE 21 MG/24 HOURS TOPICAL PATCH TD SCH (11:38)
[2023-03-18 16:53] LABS: HEMATOCRIT 39.2 % (35.4-49); HEMOGLOBIN 13.1 GM/dL (11.7-16.9); MCH 29.7 pg (25.7-33.7); MCHC 33.6 g/dl (32.0-35.9); MEAN CELL VOLUME 88.4 fl (80-96); MEAN PLT VOLUME 7.6 fl (7.5-11.1); PLATELET COUNT 287 10^3/uL (134-434); POTASSIUM 4.1 mmol/L (3.5-5.1); RBC 4.43 M/mm3 (4.00-5.60); RDW 14.6 % (11.9-15.9); WHITE BLOOD COUNT 3.9 K/mm3 (4.0-10.0)
[2023-03-18 16:57] LABS: CALCIUM 8.9 mg/dL (8.5-10.1)
[2023-03-18 16:58] LABS: ALBUMIN 3.5 g/dl (3.4-5.0); BLOOD UREA NITROGEN 16.5 mg/dL (7-18)
[2023-03-18 17:03] LABS: BILIRUBIN,TOTAL 0.4 mg/dL (0.2-1)
[2023-03-18] MEDS ORDERED: MELATONIN 5 MG TABLETS PO SCH (22:00)
[2023-03-18] MEDS: THIAMINE HCL 100 MG TABLET (FP) PO SCH (22:22)
[2023-03-18] MEDS: QUEtiapine FUMARATE 200 MG TABLET PO SCH (22:22)
[2023-03-19] MEDS: EMTRICITABINE/TENOFOV ALAFENAM (DESCOVY) TABLET PO SCH (07:00)
[2023-03-19] MEDS: DOLUTEGRAVIR SODIUM 50 MG TABLET (NON-FORMULARY) PO SCH (07:01)
[2023-03-19] MEDS: HYDROCHLOROTHIAZIDE 25 MG TABLET (FP) PO SCH (10:34)
[2023-03-19] MEDS: LACTULOSE 20 GM/30 ML UDC (FOR ORAL USE ONLY) PO SCH ×4 (10:34→22:10)
[2023-03-19] MEDS: PRENATAL VITAMINS W/ FOLIC ACID TABLET (FP) PO SCH (10:34)
[2023-03-19] MEDS: NICOTINE 21 MG/24 HOURS TOPICAL PATCH TD SCH (10:34)
[2023-03-19 13:10] VITALS: TEMP 97.5
[2023-03-19] MEDS: QUEtiapine FUMARATE 200 MG TABLET PO SCH (22:09)
[2023-03-19] MEDS: THIAMINE HCL 100 MG TABLET (FP) PO SCH (22:09)
[2023-03-20] MEDS: DOLUTEGRAVIR SODIUM 50 MG TABLET (NON-FORMULARY) PO SCH (07:01)
[2023-03-20] MEDS: EMTRICITABINE/TENOFOV ALAFENAM (DESCOVY) TABLET PO SCH (07:01)
[2023-03-20 09:48] VITALS: BP 127/66; PULSE 68; RESP 17
[2023-03-20] MEDS: PRENATAL VITAMINS W/ FOLIC ACID TABLET (FP) PO SCH (10:18)
[2023-03-20] MEDS: HYDROCHLOROTHIAZIDE 25 MG TABLET (FP) PO SCH (10:18)
[2023-03-20] MEDS: LACTULOSE 20 GM/30 ML UDC (FOR ORAL USE ONLY) PO SCH (10:19)
[2023-03-20] MEDS: NICOTINE 21 MG/24 HOURS TOPICAL PATCH TD SCH (10:19)
[2023-03-20] MEDS ORDERED: PNEUMOC 20-VAL CONJ-DIP CRM/PF 0.5 ML SYRINGE IM ONE (12:00)
== END 2023-03-20 10:40 | disposition home or self-care (01) | DRG 774 ==
LOC: YASAS 09:43 → Y6N 10:58
PROVIDERS: ADMIT Allergy & Immunology; ATTEND Surgery
PROC: HZ2ZZZZ Detoxification Services for Substance Abuse Treatment (ICD-10-PCS; principal; 2023-03-18)
DX: F10.230 Alcohol dependence with withdrawal, uncomplicated (principal); F14.10 Cocaine abuse, uncomplicated; F12.10 Cannabis abuse, uncomplicated; F17.210 Nicotine dependence, cigarettes, uncomplicated; F25.8 Other schizoaffective disorders; Z21 Asymptomatic human immunodeficiency virus [HIV] infection status; I10 Essential (primary) hypertension; R79.89 Other specified abnormal findings of blood chemistry; R63.4 Abnormal weight loss; Z68.30 Body mass index [BMI] 30.0-30.9, adult; Z79.899 Other long term (current) drug therapy
CPT/HCPCS: 36415; 80053; 82140; 85027; 86780; 87635

== ENCOUNTER 2023-05-13 09:35 | Inpatient (IN) | payer OTHER ==
[2023-05-13 10:03] VITALS: BMI 21.2
[2023-05-13] MEDS ORDERED: IBUPROFEN 400 MG TABLET (FP) PO PRN (11:25)
[2023-05-13] MEDS ORDERED: guaiFENesin 600 MG TABLET.ER (FP) PO PRN (11:25)
[2023-05-13] MEDS ORDERED: POLYETHYLENE GLYCOL (HEALTHYLAX) 3350 17 GM PACKET PO PRN (11:25)
[2023-05-13] MEDS ORDERED: NALOXONE HCL (KLOXXADO) 8 MG SPRAY NS PRN (11:25)
[2023-05-13] MEDS ORDERED: BENZONATATE 200 MG CAPSULE PO PRN (11:25)
[2023-05-13] MEDS ORDERED: MAGNESIUM HYDROX 2400MG/30ML ORAL SUSPENSION 30 ML CUP PO PRN (11:25)
[2023-05-13] MEDS ORDERED: hydrOXYzine PAMOATE 25 MG CAPSULE (FP) PO PRN (11:25)
[2023-05-13] MEDS ORDERED: MAG HYDROX/AL HYDROX/SIMETH 30 ML UNIT-DOSE CUP PO PRN (11:25)
[2023-05-13] MEDS ORDERED: COLLOIDAL OATMEAL 1 BAR EACH TP PRN (11:25)
[2023-05-13] MEDS ORDERED: ACETAMINOPHEN 325 MG TABLET (FP) PO PRN (11:25)
[2023-05-13] MEDS ORDERED: IBUPROFEN 600 MG TABLET (FP) PO PRN (11:25)
[2023-05-13] MEDS ORDERED: AMMONIUM LACTATE 12% LOTION 225 GM BOTTLE TP PRN (11:25)
[2023-05-13] MEDS ORDERED: BENZOCAINE/MENTHOL (CHLORASEPTIC ) LOZENGE MM PRN (11:25)
[2023-05-13] MEDS ORDERED: NALOXONE HCL 0.4 MG/ML VIAL IM PRN (11:25)
[2023-05-13] MEDS ORDERED: LOPERAMIDE HCL 2 MG CAPSULE PO PRN (11:25)
[2023-05-13] MEDS: HYDROCHLOROTHIAZIDE 25 MG TABLET (FP) PO SCH (14:42)
[2023-05-13] MEDS: EMTRICITABINE/TENOFOV ALAFENAM (DESCOVY) TABLET PO SCH (14:42)
[2023-05-13] MEDS: DOLUTEGRAVIR SODIUM 50 MG TABLET (NON-FORMULARY) PO SCH (14:43)
[2023-05-13 16:56] LABS: HEMATOCRIT 40.8 % (35.4-49); HEMOGLOBIN 13.9 GM/dL (11.7-16.9); MEAN CELL VOLUME 88.3 fl (80-96); MEAN PLT VOLUME 8.3 fl (7.5-11.1); PLATELET COUNT 270 10^3/uL (134-434); RBC 4.62 M/mm3 (4.00-5.60); RDW 14.8 % (11.9-15.9); WHITE BLOOD COUNT 4.5 K/mm3 (4.0-10.0)
[2023-05-13 16:58] LABS: POTASSIUM 3.7 mmol/L (3.5-5.1)
[2023-05-13 17:00] LABS: ALBUMIN 3.3 g/dl (3.4-5.0); BLOOD UREA NITROGEN 13.4 mg/dL (7-18)
[2023-05-13 17:04] LABS: CALCIUM 8.9 mg/dL (8.5-10.1)
[2023-05-13 17:05] LABS: BILIRUBIN,TOTAL 0.2 mg/dL (0.2-1); TOT PROT 6.6 g/dl (6.4-8.2)
[2023-05-13] MEDS: THIAMINE HCL 100 MG TABLET (FP) PO SCH (21:17)
[2023-05-13] MEDS: QUEtiapine FUMARATE 200 MG TABLET PO SCH (21:17)
[2023-05-13] MEDS ORDERED: MELATONIN 5 MG TABLETS PO SCH (22:00)
[2023-05-14] MEDS: EMTRICITABINE/TENOFOV ALAFENAM (DESCOVY) TABLET PO SCH (07:40)
[2023-05-14] MEDS: DOLUTEGRAVIR SODIUM 50 MG TABLET (NON-FORMULARY) PO SCH (07:40)
[2023-05-14 09:17] LABS: PH,URINE 7.5 (5.0-8.0); URINE APPEARANCE CLEAR; URINE BILIRUBIN NEGATIVE (NEGATIVE); URINE COLOR YELLOW; URINE GLUCOSE (UA) NEGATIVE (NEGATIVE); URINE KETONE NEGATIVE (NEGATIVE); URINE LEUK ESTERASE NEGATIVE (NEGATIVE); URINE NITRITE NEGATIVE (NEGATIVE); URINE PROTEIN NEGATIVE (NEGATIVE); URINE UROBILINOGEN 0.2 mg/dL (0.2-1.0)
[2023-05-14] MEDS: HYDROCHLOROTHIAZIDE 25 MG TABLET (FP) PO SCH (09:55)
[2023-05-14] MEDS: PRENATAL VITAMINS W/ FOLIC ACID TABLET (FP) PO SCH (09:55)
[2023-05-14] MEDS: THIAMINE HCL 100 MG TABLET (FP) PO SCH (21:06)
[2023-05-14] MEDS: QUEtiapine FUMARATE 200 MG TABLET PO SCH (21:07)
[2023-05-15] MEDS: EMTRICITABINE/TENOFOV ALAFENAM (DESCOVY) TABLET PO SCH (07:42)
[2023-05-15] MEDS: DOLUTEGRAVIR SODIUM 50 MG TABLET (NON-FORMULARY) PO SCH (07:42)
[2023-05-15] MEDS: HYDROCHLOROTHIAZIDE 25 MG TABLET (FP) PO SCH (09:35)
[2023-05-15] MEDS: PRENATAL VITAMINS W/ FOLIC ACID TABLET (FP) PO SCH (09:35)
[2023-05-15] MEDS: LACTULOSE 20 GM/30 ML UDC (FOR ORAL USE ONLY) PO SCH ×2 (13:55→21:28)
[2023-05-15] MEDS: THIAMINE HCL 100 MG TABLET (FP) PO SCH (21:28)
[2023-05-15] MEDS: QUEtiapine FUMARATE 200 MG TABLET PO SCH (21:29)
[2023-05-16] MEDS: EMTRICITABINE/TENOFOV ALAFENAM (DESCOVY) TABLET PO SCH (07:02)
[2023-05-16] MEDS: DOLUTEGRAVIR SODIUM 50 MG TABLET (NON-FORMULARY) PO SCH (07:02)
[2023-05-16] MEDS: LACTULOSE 20 GM/30 ML UDC (FOR ORAL USE ONLY) PO SCH (07:02)
[2023-05-16] MEDS: HYDROCHLOROTHIAZIDE 25 MG TABLET (FP) PO SCH (09:47)
[2023-05-16] MEDS: PRENATAL VITAMINS W/ FOLIC ACID TABLET (FP) PO SCH (09:47)
[2023-05-16] MEDS ORDERED: LACTULOSE 20 GM/30 ML UDC (FOR ORAL USE ONLY) PO PRN (10:56)
[2023-05-16] MEDS: THIAMINE HCL 100 MG TABLET (FP) PO SCH (21:10)
[2023-05-16] MEDS: QUEtiapine FUMARATE 200 MG TABLET PO SCH (21:10)
[2023-05-17] MEDS: DOLUTEGRAVIR SODIUM 50 MG TABLET (NON-FORMULARY) PO SCH (07:17)
[2023-05-17] MEDS: EMTRICITABINE/TENOFOV ALAFENAM (DESCOVY) TABLET PO SCH (07:17)
[2023-05-17] MEDS: PRENATAL VITAMINS W/ FOLIC ACID TABLET (FP) PO SCH (09:12)
[2023-05-17] MEDS: HYDROCHLOROTHIAZIDE 25 MG TABLET (FP) PO SCH (09:12)
[2023-05-17] MEDS: NYSTATIN 500,000 UNITS/5 ML SUSPENSION PO SCH ×2 (12:05→17:29)
[2023-05-17] MEDS: THIAMINE HCL 100 MG TABLET (FP) PO SCH (21:03)
[2023-05-17] MEDS: QUEtiapine FUMARATE 200 MG TABLET PO SCH (21:04)
[2023-05-18] MEDS: NYSTATIN 500,000 UNITS/5 ML SUSPENSION PO SCH ×5 (00:05→23:30)
[2023-05-18] MEDS: EMTRICITABINE/TENOFOV ALAFENAM (DESCOVY) TABLET PO SCH (07:14)
[2023-05-18] MEDS: DOLUTEGRAVIR SODIUM 50 MG TABLET (NON-FORMULARY) PO SCH (07:14)
[2023-05-18] MEDS: HYDROCHLOROTHIAZIDE 25 MG TABLET (FP) PO SCH (09:24)
[2023-05-18] MEDS: PRENATAL VITAMINS W/ FOLIC ACID TABLET (FP) PO SCH (09:25)
[2023-05-18] MEDS: THIAMINE HCL 100 MG TABLET (FP) PO SCH (21:25)
[2023-05-18] MEDS: QUEtiapine FUMARATE 200 MG TABLET PO SCH (21:25)
[2023-05-19] MEDS: NYSTATIN 500,000 UNITS/5 ML SUSPENSION PO SCH ×4 (06:36→23:14)
[2023-05-19] MEDS: DOLUTEGRAVIR SODIUM 50 MG TABLET (NON-FORMULARY) PO SCH (07:02)
[2023-05-19] MEDS: EMTRICITABINE/TENOFOV ALAFENAM (DESCOVY) TABLET PO SCH (07:02)
[2023-05-19] MEDS: HYDROCHLOROTHIAZIDE 25 MG TABLET (FP) PO SCH (09:47)
[2023-05-19] MEDS: PRENATAL VITAMINS W/ FOLIC ACID TABLET (FP) PO SCH (09:47)
[2023-05-19] MEDS: LACTULOSE 20 GM/30 ML UDC (FOR ORAL USE ONLY) PO SCH ×2 (15:42→21:23)
[2023-05-19] MEDS: THIAMINE HCL 100 MG TABLET (FP) PO SCH (21:23)
[2023-05-19] MEDS: QUEtiapine FUMARATE 200 MG TABLET PO SCH (21:24)
[2023-05-20] MEDS: LACTULOSE 20 GM/30 ML UDC (FOR ORAL USE ONLY) PO SCH ×3 (06:54→21:45)
[2023-05-20] MEDS: NYSTATIN 500,000 UNITS/5 ML SUSPENSION PO SCH ×3 (06:54→21:12)
[2023-05-20] MEDS: DOLUTEGRAVIR SODIUM 50 MG TABLET (NON-FORMULARY) PO SCH (07:21)
[2023-05-20] MEDS: EMTRICITABINE/TENOFOV ALAFENAM (DESCOVY) TABLET PO SCH (07:22)
[2023-05-20] MEDS: HYDROCHLOROTHIAZIDE 25 MG TABLET (FP) PO SCH (09:49)
[2023-05-20] MEDS: RIFAXIMIN 550 MG TABLET PO SCH ×2 (09:49→21:45)
[2023-05-20] MEDS: PRENATAL VITAMINS W/ FOLIC ACID TABLET (FP) PO SCH (09:49)
[2023-05-20] MEDS ORDERED: QUEtiapine FUMARATE 100 MG TABLET (FP) PO SCH (10:00)
[2023-05-20] MEDS: THIAMINE HCL 100 MG TABLET (FP) PO SCH (21:45)
[2023-05-20] MEDS: QUEtiapine FUMARATE 300 MG TABLET PO SCH (21:45)
[2023-05-21] MEDS: NYSTATIN 500,000 UNITS/5 ML SUSPENSION PO SCH ×5 (00:30→23:23)
[2023-05-21] MEDS: LACTULOSE 20 GM/30 ML UDC (FOR ORAL USE ONLY) PO SCH ×3 (07:15→21:09)
[2023-05-21] MEDS: DOLUTEGRAVIR SODIUM 50 MG TABLET (NON-FORMULARY) PO SCH (07:16)
[2023-05-21] MEDS: EMTRICITABINE/TENOFOV ALAFENAM (DESCOVY) TABLET PO SCH (07:16)
[2023-05-21] MEDS: PRENATAL VITAMINS W/ FOLIC ACID TABLET (FP) PO SCH (09:54)
[2023-05-21] MEDS: HYDROCHLOROTHIAZIDE 25 MG TABLET (FP) PO SCH (09:54)
[2023-05-21] MEDS: RIFAXIMIN 550 MG TABLET PO SCH ×2 (09:54→21:09)
[2023-05-21 15:03] LABS: POTASSIUM 4.1 mmol/L (3.5-5.1)
[2023-05-21 15:06] LABS: ALBUMIN 3.7 g/dl (3.4-5.0)
[2023-05-21 15:10] LABS: BLOOD UREA NITROGEN 18.3 mg/dL (7-18)
[2023-05-21 15:11] LABS: CREATININE 1.2 mg/dL (0.55-1.3)
[2023-05-21 15:13] LABS: BILIRUBIN,TOTAL 0.3 mg/dL (0.2-1); CALCIUM 9.6 mg/dL (8.5-10.1); TOT PROT 7.6 g/dl (6.4-8.2)
[2023-05-21] MEDS ORDERED: QUEtiapine FUMARATE 100 MG TABLET (FP) ONE (18:46)
[2023-05-21] MEDS: THIAMINE HCL 100 MG TABLET (FP) PO SCH (21:09)
[2023-05-21] MEDS: QUEtiapine FUMARATE 300 MG TABLET PO SCH (21:09)
[2023-05-22] MEDS: LACTULOSE 20 GM/30 ML UDC (FOR ORAL USE ONLY) PO SCH ×4 (06:24→21:22)
[2023-05-22] MEDS: NYSTATIN 500,000 UNITS/5 ML SUSPENSION PO SCH ×3 (06:25→17:45)
[2023-05-22] MEDS: EMTRICITABINE/TENOFOV ALAFENAM (DESCOVY) TABLET PO SCH (08:19)
[2023-05-22] MEDS: DOLUTEGRAVIR SODIUM 50 MG TABLET (NON-FORMULARY) PO SCH (08:19)
[2023-05-22] MEDS: RIFAXIMIN 550 MG TABLET PO SCH ×2 (09:12→21:23)
[2023-05-22] MEDS: HYDROCHLOROTHIAZIDE 25 MG TABLET (FP) PO SCH (09:12)
[2023-05-22] MEDS: PRENATAL VITAMINS W/ FOLIC ACID TABLET (FP) PO SCH (09:13)
[2023-05-22] MEDS ORDERED: QUEtiapine FUMARATE 100 MG TABLET (FP) ONE (19:13)
[2023-05-22] MEDS: QUEtiapine FUMARATE 300 MG TABLET PO SCH (21:23)
[2023-05-22] MEDS: THIAMINE HCL 100 MG TABLET (FP) PO SCH (21:23)
[2023-05-23] MEDS: NYSTATIN 500,000 UNITS/5 ML SUSPENSION PO SCH ×4 (00:07→17:25)
[2023-05-23] MEDS: LACTULOSE 20 GM/30 ML UDC (FOR ORAL USE ONLY) PO SCH ×3 (06:20→21:21)
[2023-05-23] MEDS: DOLUTEGRAVIR SODIUM 50 MG TABLET (NON-FORMULARY) PO SCH (07:17)
[2023-05-23] MEDS: EMTRICITABINE/TENOFOV ALAFENAM (DESCOVY) TABLET PO SCH (07:17)
[2023-05-23 07:32] VITALS: RESP 18
[2023-05-23] MEDS: PRENATAL VITAMINS W/ FOLIC ACID TABLET (FP) PO SCH (09:10)
[2023-05-23] MEDS: RIFAXIMIN 550 MG TABLET PO SCH ×2 (09:10→21:21)
[2023-05-23] MEDS: HYDROCHLOROTHIAZIDE 25 MG TABLET (FP) PO SCH (09:10)
[2023-05-23] MEDS: QUEtiapine FUMARATE 100 MG TABLET (FP) PO SCH ×2 (11:04→21:21)
[2023-05-23] MEDS: THIAMINE HCL 100 MG TABLET (FP) PO SCH (21:21)
[2023-05-24] MEDS: NYSTATIN 500,000 UNITS/5 ML SUSPENSION PO SCH ×4 (00:36→18:03)
[2023-05-24] MEDS: LACTULOSE 20 GM/30 ML UDC (FOR ORAL USE ONLY) PO SCH ×3 (06:26→21:16)
[2023-05-24] MEDS: DOLUTEGRAVIR SODIUM 50 MG TABLET (NON-FORMULARY) PO SCH (07:17)
[2023-05-24] MEDS: EMTRICITABINE/TENOFOV ALAFENAM (DESCOVY) TABLET PO SCH (07:17)
[2023-05-24] MEDS: PRENATAL VITAMINS W/ FOLIC ACID TABLET (FP) PO SCH (09:26)
[2023-05-24] MEDS: HYDROCHLOROTHIAZIDE 25 MG TABLET (FP) PO SCH (09:26)
[2023-05-24] MEDS: RIFAXIMIN 550 MG TABLET PO SCH ×2 (09:26→21:16)
[2023-05-24] MEDS: QUEtiapine FUMARATE 100 MG TABLET (FP) PO SCH ×2 (09:26→21:16)
[2023-05-24] MEDS: THIAMINE HCL 100 MG TABLET (FP) PO SCH (21:16)
[2023-05-25] MEDS: NYSTATIN 500,000 UNITS/5 ML SUSPENSION PO SCH ×4 (01:00→12:01)
[2023-05-25] MEDS: LACTULOSE 20 GM/30 ML UDC (FOR ORAL USE ONLY) PO SCH ×2 (06:24→13:29)
[2023-05-25 06:57] VITALS: TEMP 98.6
[2023-05-25] MEDS: DOLUTEGRAVIR SODIUM 50 MG TABLET (NON-FORMULARY) PO SCH (07:11)
[2023-05-25] MEDS: EMTRICITABINE/TENOFOV ALAFENAM (DESCOVY) TABLET PO SCH (07:11)
[2023-05-25 09:17] VITALS: BP 117/71; PULSE 54
[2023-05-25] MEDS: QUEtiapine FUMARATE 100 MG TABLET (FP) PO SCH (09:24)
[2023-05-25] MEDS: RIFAXIMIN 550 MG TABLET PO SCH (09:24)
[2023-05-25] MEDS: PRENATAL VITAMINS W/ FOLIC ACID TABLET (FP) PO SCH (09:24)
[2023-05-25] MEDS: HYDROCHLOROTHIAZIDE 25 MG TABLET (FP) PO SCH (09:24)
== END 2023-05-25 14:19 | disposition left against medical advice (07) | DRG 770 ==
LOC: YASAS 09:35 → Y3E 12:43
PROVIDERS: ADMIT Allergy & Immunology; ATTEND Psychiatry & Neurology Pain Medicine
PROC: HZ42ZZZ Group Counseling for Substance Abuse Treatment, Cognitive-Behavioral (ICD-10-PCS; principal; 2023-05-13)
DX: F14.20 Cocaine dependence, uncomplicated (principal); F12.20 Cannabis dependence, uncomplicated; F17.210 Nicotine dependence, cigarettes, uncomplicated; F31.9 Bipolar disorder, unspecified; F25.8 Other schizoaffective disorders; F41.9 Anxiety disorder, unspecified; F32.A Depression, unspecified; Z21 Asymptomatic human immunodeficiency virus [HIV] infection status; B37.0 Candidal stomatitis; I10 Essential (primary) hypertension; R73.9 Hyperglycemia, unspecified; Z20.822 Contact with and (suspected) exposure to COVID-19; Z51.81 Encounter for therapeutic drug level monitoring; F91.8 Other conduct disorders; Z91.199 Patient's noncompliance with other medical treatment and regimen due to unspecified reason
CPT/HCPCS: 36415; 80053; 81003; 82140; 82962; 85027; 86780; 86803; 87635

== ENCOUNTER 2023-08-02 14:39 | Inpatient (IN) | payer OTHER ==
[2023-08-02 16:45] VITALS: BMI 23.0
[2023-08-02] MEDS ORDERED: LORazepam 1 MG TABLET PO PRN (18:06)
[2023-08-02] MEDS ORDERED: NALOXONE HCL (KLOXXADO) 8 MG SPRAY NS PRN (18:06)
[2023-08-02] MEDS ORDERED: BISMUTH SUBSALICYLATE 524 MG/30 ML PO PRN (18:06)
[2023-08-02] MEDS ORDERED: NALOXONE HCL 0.4 MG/ML VIAL IM PRN (18:06)
[2023-08-02] MEDS ORDERED: LOPERAMIDE HCL 2 MG CAPSULE PO PRN (18:06)
[2023-08-02] MEDS ORDERED: POLYETHYLENE GLYCOL (HEALTHYLAX) 3350 17 GM PACKET PO PRN (18:06)
[2023-08-02] MEDS ORDERED: guaiFENesin 600 MG TABLET.ER (FP) PO PRN (18:06)
[2023-08-02] MEDS ORDERED: ACETAMINOPHEN 325 MG TABLET (FP) PO PRN (18:06)
[2023-08-02] MEDS ORDERED: DICYCLOMINE HCL 10 MG CAPSULE PO PRN (18:06)
[2023-08-02] MEDS ORDERED: BENZOCAINE/MENTHOL (CHLORASEPTIC ) LOZENGE MM PRN (18:06)
[2023-08-02] MEDS ORDERED: MAGNESIUM HYDROX 2400MG/30ML ORAL SUSPENSION 30 ML CUP PO PRN (18:06)
[2023-08-02] MEDS ORDERED: ONDANSETRON *ODT* 4 MG TABLET SL PRN (18:06)
[2023-08-02] MEDS ORDERED: IBUPROFEN 400 MG TABLET (FP) PO PRN (18:06)
[2023-08-02] MEDS ORDERED: MAG HYDROX/AL HYDROX/SIMETH 30 ML UNIT-DOSE CUP PO PRN (18:06)
[2023-08-02] MEDS ORDERED: BENZONATATE 200 MG CAPSULE PO PRN (18:06)
[2023-08-02] MEDS ORDERED: cloNIDine HCL 0.1 MG TABLET PO PRN (19:15)
[2023-08-02] MEDS: HYDROCHLOROTHIAZIDE 25 MG TABLET (FP) PO SCH (19:59)
[2023-08-02] MEDS: DOLUTEGRAVIR SODIUM 50 MG TABLET (NON-FORMULARY) PO SCH (19:59)
[2023-08-02] MEDS: METHOCARBAMOL 500 MG TABLET PO PRN (20:57)
[2023-08-02] MEDS: IBUPROFEN 600 MG TABLET (FP) PO PRN (20:57)
[2023-08-02] MEDS: hydrOXYzine PAMOATE 25 MG CAPSULE (FP) PO PRN (21:00)
[2023-08-02] MEDS: LORazepam 2 MG TABLET PO SCH (22:05)
[2023-08-02] MEDS: MELATONIN 5 MG TABLETS PO SCH (22:07)
[2023-08-02] MEDS: THIAMINE HCL 100 MG TABLET (FP) PO SCH (22:07)
[2023-08-02] MEDS: EMTRICITABINE/TENOFOV ALAFENAM (DESCOVY) TABLET PO SCH (23:03)
[2023-08-03] MEDS: LORazepam 2 MG TABLET PO SCH ×4 (05:43→22:16)
[2023-08-03] MEDS: DOLUTEGRAVIR SODIUM 50 MG TABLET (NON-FORMULARY) PO SCH (08:33)
[2023-08-03] MEDS: EMTRICITABINE/TENOFOV ALAFENAM (DESCOVY) TABLET PO SCH (08:48)
[2023-08-03 10:16] LABS: HEMATOCRIT 37.6 % (35.4-49); MCH 29.7 pg (25.7-33.7); MCHC 34.6 g/dl (32.0-35.9); MEAN CELL VOLUME 85.9 fl (80-96); MEAN PLT VOLUME 7.6 fl (7.5-11.1); PLATELET COUNT 258 10^3/uL (134-434); RBC 4.37 M/mm3 (4.00-5.60); RDW 13.7 % (11.9-15.9); WHITE BLOOD COUNT 17.8 K/mm3 (4.0-10.0)
[2023-08-03 10:41] LABS: CHLORIDE 103 mmol/L (98-107); POTASSIUM 3.2 mmol/L (3.5-5.1); SODIUM 136 mmol/L (136-145)
[2023-08-03 10:44] LABS: ANION GAP 6 mmol/L (4-13); BLOOD UREA NITROGEN 12.7 mg/dL (7-18); CALCIUM 8.4 mg/dL (8.5-10.1); CO2 27 mmol/L (21-32); GLUCOSE,RANDOM 160 mg/dL (74-106)
[2023-08-03 10:47] LABS: CREATININE 1.1 mg/dL (0.55-1.3); SGOT/AST 12 U/L (15-37); SGPT/ALT 17 U/L (13-61)
[2023-08-03 10:49] LABS: TOT PROT 7.1 g/dl (6.4-8.2)
[2023-08-03 10:50] LABS: ALK PHOS 101 U/L (45-117)
[2023-08-03] MEDS: PRENATAL VITAMINS W/ FOLIC ACID TABLET (FP) PO SCH (10:56)
[2023-08-03] MEDS: HYDROCHLOROTHIAZIDE 25 MG TABLET (FP) PO SCH (10:56)
[2023-08-03] MEDS: hydrOXYzine PAMOATE 25 MG CAPSULE (FP) PO PRN (13:28)
[2023-08-03] MEDS: METHOCARBAMOL 500 MG TABLET PO PRN (13:28)
[2023-08-03] MEDS ORDERED: PENICILLIN V POTASSIUM 500 MG TABLET PO ONE (16:30)
[2023-08-03 16:48] LABS: EPI CELLS 22 /uL (0-25.1); HYALINE CASTS 0 /uL (0-3.1); URINE APPEARANCE CLEAR; URINE BACTERIA 3 /uL (0-1359); URINE BILIRUBIN NEGATIVE (NEGATIVE); URINE COLOR DK YELLOW; URINE GLUCOSE (UA) NEGATIVE (NEGATIVE); URINE KETONE NEGATIVE (NEGATIVE); URINE LEUK ESTERASE NEGATIVE (NEGATIVE); URINE NITRITE NEGATIVE (NEGATIVE); URINE PROTEIN 1+ (NEGATIVE); URINE RBC 233 /uL (0-23.9); URINE UROBILINOGEN 4.0 E.U/dl mg/dL (0.2-1.0); URINE WBC 6 /uL (0-25.8)
[2023-08-03] MEDS: IBUPROFEN 600 MG TABLET (FP) PO PRN (17:23)
[2023-08-03] MEDS ORDERED: CLARITHROMYCIN 500 MG TABLET (UD) PO SCH (22:00)
[2023-08-03] MEDS: THIAMINE HCL 100 MG TABLET (FP) PO SCH (22:16)
[2023-08-03] MEDS: MELATONIN 5 MG TABLETS PO SCH (22:16)
[2023-08-03] MEDS: PENICILLIN V POTASSIUM 500 MG TABLET PO SCH (22:17)
[2023-08-03] MEDS: QUEtiapine FUMARATE 100 MG TABLET (FP) PO SCH (22:18)
[2023-08-04] MEDS: LORazepam 1 MG TABLET PO SCH ×4 (05:42→23:00)
[2023-08-04] MEDS: PENICILLIN V POTASSIUM 500 MG TABLET PO SCH ×3 (05:44→22:32)
[2023-08-04] MEDS: EMTRICITABINE/TENOFOV ALAFENAM (DESCOVY) TABLET PO SCH (07:17)
[2023-08-04] MEDS: DOLUTEGRAVIR SODIUM 50 MG TABLET (NON-FORMULARY) PO SCH (07:17)
[2023-08-04] MEDS: PRENATAL VITAMINS W/ FOLIC ACID TABLET (FP) PO SCH (10:39)
[2023-08-04] MEDS: hydrOXYzine PAMOATE 25 MG CAPSULE (FP) PO PRN (10:40)
[2023-08-04] MEDS: METHOCARBAMOL 500 MG TABLET PO PRN ×2 (10:40→17:41)
[2023-08-04] MEDS: HYDROCHLOROTHIAZIDE 25 MG TABLET (FP) PO SCH (10:44)
[2023-08-04] MEDS: HYDROCHLOROTHIAZIDE 12.5 MG CAPSULE (FP) PO SCH (10:53)
[2023-08-04] MEDS: POTASSIUM CHLORIDE ORAL LIQUID 20 MEQ/15 ML PO SCH ×2 (10:53→15:08)
[2023-08-04] MEDS: QUEtiapine FUMARATE 100 MG TABLET (FP) PO SCH (22:31)
[2023-08-04] MEDS: MELATONIN 5 MG TABLETS PO SCH (22:31)
[2023-08-04] MEDS: THIAMINE HCL 100 MG TABLET (FP) PO SCH (22:31)
[2023-08-05] MEDS ORDERED: LORazepam 0.5 MG TABLET PO PRN
[2023-08-05] MEDS: LORazepam 0.5 MG TABLET PO SCH ×4 (05:56→22:18)
[2023-08-05] MEDS: PENICILLIN V POTASSIUM 500 MG TABLET PO SCH ×3 (06:20→22:18)
[2023-08-05] MEDS: EMTRICITABINE/TENOFOV ALAFENAM (DESCOVY) TABLET PO SCH (07:11)
[2023-08-05] MEDS: DOLUTEGRAVIR SODIUM 50 MG TABLET (NON-FORMULARY) PO SCH (07:11)
[2023-08-05] MEDS: PRENATAL VITAMINS W/ FOLIC ACID TABLET (FP) PO SCH (10:07)
[2023-08-05] MEDS: HYDROCHLOROTHIAZIDE 12.5 MG CAPSULE (FP) PO SCH (10:07)
[2023-08-05] MEDS: IBUPROFEN 600 MG TABLET (FP) PO PRN (10:09)
[2023-08-05] MEDS: POTASSIUM CHLORIDE ORAL LIQUID 20 MEQ/15 ML PO SCH ×2 (10:30→14:37)
[2023-08-05 11:45] LABS: HEMATOCRIT 37.2 % (35.4-49); HEMOGLOBIN 12.9 GM/dL (11.7-16.9); MCH 29.7 pg (25.7-33.7); MCHC 34.8 g/dl (32.0-35.9); MEAN CELL VOLUME 85.5 fl (80-96); MEAN PLT VOLUME 7.5 fl (7.5-11.1); PLATELET COUNT 370 10^3/uL (134-434); RBC 4.35 M/mm3 (4.00-5.60); RDW 14.3 % (11.9-15.9); WHITE BLOOD COUNT 7.6 K/mm3 (4.0-10.0)
[2023-08-05] MEDS: QUEtiapine FUMARATE 100 MG TABLET (FP) PO SCH (22:18)
[2023-08-05] MEDS: THIAMINE HCL 100 MG TABLET (FP) PO SCH (22:18)
[2023-08-05] MEDS: MELATONIN 5 MG TABLETS PO SCH (22:18)
[2023-08-06] MEDS ORDERED: LORazepam 0.5 MG TABLET PO ONE (05:00)
[2023-08-06] MEDS: PENICILLIN V POTASSIUM 500 MG TABLET PO SCH (05:12)
[2023-08-06 06:03] VITALS: RESP 18; TEMP 97.7
[2023-08-06] MEDS: EMTRICITABINE/TENOFOV ALAFENAM (DESCOVY) TABLET PO SCH (07:40)
[2023-08-06] MEDS: DOLUTEGRAVIR SODIUM 50 MG TABLET (NON-FORMULARY) PO SCH (07:41)
[2023-08-06] MEDS: HYDROCHLOROTHIAZIDE 12.5 MG CAPSULE (FP) PO SCH (09:10)
[2023-08-06] MEDS: PRENATAL VITAMINS W/ FOLIC ACID TABLET (FP) PO SCH (09:10)
[2023-08-06 09:24] VITALS: BP 126/71; PULSE 79
== END 2023-08-06 09:35 | disposition home or self-care (01) | DRG 774 ==
LOC: SUATTDRO 14:39 → YASAS 14:39 → Y6N 18:10
PROVIDERS: ADMIT Allergy & Immunology; ATTEND Surgery
PROC: HZ2ZZZZ Detoxification Services for Substance Abuse Treatment (ICD-10-PCS; principal; 2023-08-02)
DX: F10.230 Alcohol dependence with withdrawal, uncomplicated (principal); F14.20 Cocaine dependence, uncomplicated; F12.20 Cannabis dependence, uncomplicated; F17.210 Nicotine dependence, cigarettes, uncomplicated; F25.9 Schizoaffective disorder, unspecified; F31.9 Bipolar disorder, unspecified; Z21 Asymptomatic human immunodeficiency virus [HIV] infection status; I10 Essential (primary) hypertension; E87.6 Hypokalemia; R91.8 Other nonspecific abnormal finding of lung field; R50.9 Fever, unspecified
CPT/HCPCS: 36415; 71046-TC-FY; 80053; 80307; 81003; 83036; 84132; 85027; 86780; 87635

== ENCOUNTER 2023-09-23 13:57 | Inpatient (IN) | payer OTHER ==
[2023-09-23 14:21] VITALS: BMI 19.6
[2023-09-23] MEDS ORDERED: BENZOCAINE/MENTHOL (CHLORASEPTIC ) LOZENGE MM PRN (15:01)
[2023-09-23] MEDS ORDERED: NALOXONE HCL 0.4 MG/ML VIAL IM PRN (15:01)
[2023-09-23] MEDS ORDERED: NALOXONE HCL (KLOXXADO) 8 MG SPRAY NS PRN (15:01)
[2023-09-23] MEDS ORDERED: BENZONATATE 200 MG CAPSULE PO PRN (15:01)
[2023-09-23] MEDS ORDERED: LOPERAMIDE HCL 2 MG CAPSULE PO PRN (15:01)
[2023-09-23] MEDS ORDERED: MAG HYDROX/AL HYDROX/SIMETH 30 ML UNIT-DOSE CUP PO PRN (15:01)
[2023-09-23] MEDS ORDERED: POLYETHYLENE GLYCOL (HEALTHYLAX) 3350 17 GM PACKET PO PRN (15:01)
[2023-09-23] MEDS ORDERED: ACETAMINOPHEN 325 MG TABLET (FP) PO PRN (15:01)
[2023-09-23] MEDS ORDERED: MAGNESIUM HYDROX 2400MG/30ML ORAL SUSPENSION 30 ML CUP PO PRN (15:01)
[2023-09-23] MEDS ORDERED: IBUPROFEN 400 MG TABLET (FP) PO PRN (15:01)
[2023-09-23] MEDS ORDERED: IBUPROFEN 600 MG TABLET (FP) PO PRN (15:01)
[2023-09-23] MEDS ORDERED: guaiFENesin 600 MG TABLET.ER (FP) PO PRN (15:01)
[2023-09-23] MEDS ORDERED: COLLOIDAL OATMEAL 1 BAR EACH TP PRN (15:01)
[2023-09-23] MEDS: THIAMINE HCL 100 MG TABLET (FP) PO SCH (21:06)
[2023-09-23] MEDS ORDERED: MELATONIN 5 MG TABLETS PO SCH (22:00)
[2023-09-24] MEDS: hydrOXYzine PAMOATE 25 MG CAPSULE (FP) PO PRN ×2 (01:22→10:32)
[2023-09-24] MEDS ORDERED: MELATONIN 5 MG TABLETS PO SCH (09:04)
[2023-09-24] MEDS ORDERED: EMTRICITABINE/TENOFOV ALAFENAM (DESCOVY) TABLET PO SCH (10:00)
[2023-09-24] MEDS ORDERED: DOLUTEGRAVIR SODIUM 50 MG TABLET (NON-FORMULARY) PO SCH (10:00)
[2023-09-24] MEDS ORDERED: PRENATAL VITAMINS W/ FOLIC ACID TABLET (FP) PO SCH (10:00)
[2023-09-24] MEDS ORDERED: HYDROCHLOROTHIAZIDE 12.5 MG CAPSULE (FP) PO SCH (10:00)
[2023-09-24] MEDS: POTASSIUM CHLORIDE ORAL LIQUID 20 MEQ/15 ML PO SCH ×2 (10:29→21:05)
[2023-09-24 11:35] LABS: HEMATOCRIT 41.7 % (35.4-49); HEMOGLOBIN 13.9 GM/dL (11.7-16.9); MCH 29.7 pg (25.7-33.7); MCHC 33.4 g/dl (32.0-35.9); MEAN CELL VOLUME 89.1 fl (80-96); MEAN PLT VOLUME 7.5 fl (7.5-11.1); PLATELET COUNT 288 10^3/uL (134-434); RBC 4.67 M/mm3 (4.00-5.60); RDW 14.6 % (11.9-15.9); WHITE BLOOD COUNT 4.7 K/mm3 (4.0-10.0)
[2023-09-24 11:43] LABS: CHLORIDE 105 mmol/L (98-107); POTASSIUM 4.3 mmol/L (3.5-5.1); SODIUM 139 mmol/L (136-145)
[2023-09-24 11:53] LABS: CALCIUM 8.8 mg/dL (8.5-10.1)
[2023-09-24 11:54] LABS: ALBUMIN 3.4 g/dl (3.4-5.0); ANION GAP 5 mmol/L (4-13); BLOOD UREA NITROGEN 14.9 mg/dL (7-18); CO2 28 mmol/L (21-32); GLUCOSE,RANDOM 84 mg/dL (74-106)
[2023-09-24 11:57] LABS: SGPT/ALT 22 U/L (13-61)
[2023-09-24 11:58] LABS: CREATININE 1.1 mg/dL (0.55-1.3)
[2023-09-24 11:59] LABS: BILIRUBIN,TOTAL 0.6 mg/dL (0.2-1); TOT PROT 7.3 g/dl (6.4-8.2)
[2023-09-24 12:00] LABS: ALK PHOS 92 U/L (45-117)
[2023-09-24 12:02] LABS: SGOT/AST 13 U/L (15-37)
[2023-09-24] MEDS: THIAMINE HCL 100 MG TABLET (FP) PO SCH (21:04)
[2023-09-24] MEDS ORDERED: QUEtiapine FUMARATE 200 MG TABLET PO SCH ×2 (22:00)
[2023-09-24] MEDS ORDERED: QUEtiapine FUMARATE 200 MG TABLET PO ONE (22:00)
[2023-09-25 07:22] VITALS: TEMP 97.8
[2023-09-25 09:09] VITALS: BP 139/78; PULSE 69; RESP 16
== END 2023-09-25 09:01 | disposition left against medical advice (07) | DRG 770 ==
LOC: YASAS 13:57 → Y3W 18:48
PROVIDERS: ADMIT Allergy & Immunology; ATTEND Psychiatry & Neurology Pain Medicine
PROC: HZ42ZZZ Group Counseling for Substance Abuse Treatment, Cognitive-Behavioral (ICD-10-PCS; principal; 2023-09-23)
DX: F10.20 Alcohol dependence, uncomplicated (principal); F14.20 Cocaine dependence, uncomplicated; F12.20 Cannabis dependence, uncomplicated; F17.210 Nicotine dependence, cigarettes, uncomplicated; F25.9 Schizoaffective disorder, unspecified; F41.9 Anxiety disorder, unspecified; F32.A Depression, unspecified; Z21 Asymptomatic human immunodeficiency virus [HIV] infection status; E87.6 Hypokalemia; G47.00 Insomnia, unspecified; Z91.51 Personal history of suicidal behavior
CPT/HCPCS: 36415; 80053; 80307; 85027; 86780; 87635; 93005; 93010

== ENCOUNTER 2024-01-03 13:18 | Inpatient (IN) | payer OTHER ==
[2024-01-03 14:23] VITALS: BMI 21.1
[2024-01-03] MEDS ORDERED: POLYETHYLENE GLYCOL (HEALTHYLAX) 3350 17 GM PACKET PO PRN (17:16)
[2024-01-03] MEDS ORDERED: MAGNESIUM HYDROX 2400MG/30ML ORAL SUSPENSION 30 ML CUP PO PRN (17:16)
[2024-01-03] MEDS ORDERED: NALOXONE HCL (KLOXXADO) 8 MG SPRAY NS PRN (17:16)
[2024-01-03] MEDS ORDERED: NALOXONE HCL 0.4 MG/ML VIAL IM PRN (17:16)
[2024-01-03] MEDS ORDERED: DICYCLOMINE HCL 10 MG CAPSULE PO PRN (17:16)
[2024-01-03] MEDS ORDERED: BISMUTH SUBSALICYLATE 524 MG/30 ML PO PRN (17:16)
[2024-01-03] MEDS ORDERED: ACETAMINOPHEN 325 MG TABLET (FP) PO PRN (17:16)
[2024-01-03] MEDS ORDERED: LOPERAMIDE HCL 2 MG CAPSULE PO PRN (17:16)
[2024-01-03] MEDS ORDERED: BENZONATATE 200 MG CAPSULE PO PRN (17:16)
[2024-01-03] MEDS ORDERED: BENZOCAINE/MENTHOL (CHLORASEPTIC ) LOZENGE MM PRN (17:16)
[2024-01-03] MEDS ORDERED: IBUPROFEN 400 MG TABLET (FP) PO PRN (17:16)
[2024-01-03] MEDS ORDERED: IBUPROFEN 600 MG TABLET (FP) PO PRN (17:16)
[2024-01-03] MEDS ORDERED: MAG HYDROX/AL HYDROX/SIMETH 30 ML UNIT-DOSE CUP PO PRN (17:16)
[2024-01-03] MEDS ORDERED: ONDANSETRON *ODT* 4 MG TABLET SL PRN (17:16)
[2024-01-03] MEDS ORDERED: guaiFENesin 600 MG TABLET.ER (FP) PO PRN (17:16)
[2024-01-03] MEDS: diazePAM 5 MG TABLET PO PRN (18:48)
[2024-01-03] MEDS: MELATONIN 5 MG TABLETS PO SCH (22:33)
[2024-01-03] MEDS: METHOCARBAMOL 500 MG TABLET PO PRN (22:33)
[2024-01-03] MEDS: SULFAMETHOXAZOLE/TRIMETHOPRIM 800MG/160MG D.S. TABLET PO SCH (22:33)
[2024-01-03] MEDS: THIAMINE HCL 100 MG TABLET (FP) PO SCH (22:34)
[2024-01-03] MEDS: diazePAM 5 MG TABLET PO SCH (22:34)
[2024-01-04] MEDS: DOLUTEGRAVIR SODIUM 50 MG TABLET (NON-FORMULARY) PO SCH (10:06)
[2024-01-04] MEDS: HYDROCHLOROTHIAZIDE 25 MG TABLET (FP) PO SCH (10:06)
[2024-01-04] MEDS: PRENATAL VITAMINS W/ FOLIC ACID TABLET (FP) PO SCH (10:07)
[2024-01-04] MEDS: NICOTINE 14 MG/24 HOURS TOPICAL PATCH TD SCH (10:07)
[2024-01-04] MEDS: EMTRICITABINE/TENOFOV ALAFENAM (DESCOVY) TABLET PO SCH (11:38)
[2024-01-04] MEDS: QUEtiapine FUMARATE 100 MG TABLET (FP) PO SCH (22:22)
[2024-01-04] MEDS: hydrOXYzine PAMOATE 25 MG CAPSULE (FP) PO PRN (22:23)
[2024-01-05] MEDS: diazePAM 5 MG TABLET PO SCH (05:27)
[2024-01-06] MEDS: diazePAM 5 MG TABLET PO SCH (05:37)
[2024-01-07] MEDS: diazePAM 5 MG TABLET PO ONE (05:32)
[2024-01-07 09:08] LABS: HEMATOCRIT 42.2 % (35.4-49); MCHC 33.1 g/dl (32.0-35.9); MEAN CELL VOLUME 87.7 fl (80-96); MEAN PLT VOLUME 7.5 fl (7.5-11.1); PLATELET COUNT 266 10^3/uL (134-434); POTASSIUM 4.2 mmol/L (3.5-5.1); RBC 4.81 M/mm3 (4.00-5.60); RDW 15.8 % (11.9-15.9); WHITE BLOOD COUNT 4.5 K/mm3 (4.0-10.0)
[2024-01-07 09:15] LABS: CALCIUM 9.3 mg/dL (8.5-10.1)
[2024-01-07 09:19] LABS: CREATININE 1.2 mg/dL (0.55-1.3)
[2024-01-07 10:29] VITALS: BP 128/63; PULSE 76; RESP 16; TEMP 98.2
[2024-01-07 10:29] LABS: ANISOCYTOSIS 0; HELMET CELLS 0; HOWELL-JOLLY BODIES 0; MACROCYTOSIS 0; OVALOCYTE 0; ROULEAU 0; SICKELED CELLS 0; TARGET CELLS 0; TEAR DROP CELLS 0; TOXIC GRANULATION 0
== END 2024-01-07 09:52 | disposition other institution (70) | DRG 774 ==
LOC: YASAS 13:18 → Y3N 17:35
PROVIDERS: ADMIT Allergy & Immunology; ATTEND Surgery
PROC: HZ2ZZZZ Detoxification Services for Substance Abuse Treatment (ICD-10-PCS; principal; 2024-01-03)
DX: F10.230 Alcohol dependence with withdrawal, uncomplicated (principal); F14.20 Cocaine dependence, uncomplicated; F12.20 Cannabis dependence, uncomplicated; F17.210 Nicotine dependence, cigarettes, uncomplicated; F19.282 Other psychoactive substance dependence with psychoactive substance-induced sleep disorder; F31.9 Bipolar disorder, unspecified; Z21 Asymptomatic human immunodeficiency virus [HIV] infection status; I10 Essential (primary) hypertension; L84 Corns and callosities; Z91.51 Personal history of suicidal behavior; Z87.19 Personal history of other diseases of the digestive system
CPT/HCPCS: 36415; 80048; 85025; 93005; 93010

== ENCOUNTER 2024-03-12 10:01 | Inpatient (IN) | payer OTHER ==
[2024-03-12 10:26] VITALS: BMI 19.6
[2024-03-12] MEDS ORDERED: guaiFENesin 600 MG TABLET.ER (FP) PO PRN (10:32)
[2024-03-12] MEDS ORDERED: NALOXONE HCL 0.4 MG/ML VIAL IM PRN (10:32)
[2024-03-12] MEDS ORDERED: MAGNESIUM HYDROX 2400MG/30ML ORAL SUSPENSION 30 ML CUP PO PRN (10:32)
[2024-03-12] MEDS ORDERED: BENZONATATE 200 MG CAPSULE PO PRN (10:32)
[2024-03-12] MEDS ORDERED: BISMUTH SUBSALICYLATE 524 MG/30 ML PO PRN (10:32)
[2024-03-12] MEDS ORDERED: IBUPROFEN 600 MG TABLET (FP) PO PRN (10:32)
[2024-03-12] MEDS ORDERED: LOPERAMIDE HCL 2 MG CAPSULE PO PRN (10:32)
[2024-03-12] MEDS ORDERED: BENZOCAINE/MENTHOL (CHLORASEPTIC ) LOZENGE MM PRN (10:32)
[2024-03-12] MEDS ORDERED: hydrOXYzine PAMOATE 25 MG CAPSULE (FP) PO PRN (10:32)
[2024-03-12] MEDS ORDERED: MAG HYDROX/AL HYDROX/SIMETH 30 ML UNIT-DOSE CUP PO PRN (10:32)
[2024-03-12] MEDS ORDERED: POLYETHYLENE GLYCOL (HEALTHYLAX) 3350 17 GM PACKET PO PRN (10:32)
[2024-03-12] MEDS ORDERED: IBUPROFEN 400 MG TABLET (FP) PO PRN (10:32)
[2024-03-12] MEDS ORDERED: ACETAMINOPHEN 325 MG TABLET (FP) PO PRN (10:32)
[2024-03-12] MEDS ORDERED: NALOXONE HCL (KLOXXADO) 8 MG SPRAY NS PRN (10:32)
[2024-03-12] MEDS ORDERED: DICYCLOMINE HCL 10 MG CAPSULE PO PRN (10:32)
[2024-03-12] MEDS ORDERED: diazePAM 5 MG TABLET ONE (11:01)
[2024-03-12] MEDS ORDERED: PRENATAL VITAMINS W/ FOLIC ACID TABLET (FP) PO ONE (11:02)
[2024-03-12] MEDS: diazePAM 5 MG TABLET PO SCH (11:04)
[2024-03-12] MEDS: PRENATAL VITAMINS W/ FOLIC ACID TABLET (FP) PO SCH (11:04)
[2024-03-12] MEDS: SULFAMETHOXAZOLE/TRIMETHOPRIM 800MG/160MG D.S. TABLET PO SCH (11:30)
[2024-03-12] MEDS: ACAMPROSATE CALCIUM 333 MG TABLET.DR PO SCH (13:06)
[2024-03-12] MEDS: METHOCARBAMOL 500 MG TABLET PO PRN (17:29)
[2024-03-12] MEDS: QUEtiapine FUMARATE 100 MG TABLET (FP) PO SCH (22:44)
[2024-03-12] MEDS: MELATONIN 5 MG TABLETS PO SCH (22:44)
[2024-03-12] MEDS: THIAMINE 100 MG TABLET PO SCH (22:44)
[2024-03-13] MEDS: NICOTINE 7 MG/24 HOURS TOPICAL PATCH TD SCH (10:31)
[2024-03-13] MEDS: HYDROCHLOROTHIAZIDE 25 MG TABLET (FP) PO SCH (10:32)
[2024-03-13] MEDS: EMTRICITABINE/TENOFOV ALAFENAM (DESCOVY) TABLET PO SCH (10:33)
[2024-03-13] MEDS: DOLUTEGRAVIR SODIUM 50 MG TABLET (NON-FORMULARY) PO SCH (10:33)
[2024-03-13 11:24] LABS: HEMATOCRIT 41.5 % (35.4-49); HEMOGLOBIN 13.9 GM/dL (11.7-16.9); MCH 29.6 pg (25.7-33.7); MCHC 33.5 g/dl (32.0-35.9); MEAN CELL VOLUME 88.3 fl (80-96); MEAN PLT VOLUME 7.5 fl (7.5-11.1); PLATELET COUNT 323 10^3/uL (134-434); RDW 14.4 % (11.9-15.9); WHITE BLOOD COUNT 3.7 K/mm3 (4.0-10.0)
[2024-03-13 11:25] LABS: POTASSIUM 3.6 mmol/L (3.5-5.1)
[2024-03-13 11:27] LABS: BLOOD UREA NITROGEN 18.3 mg/dL (7-18); CALCIUM 9.1 mg/dL (8.5-10.1)
[2024-03-13 11:28] LABS: ALBUMIN 3.4 g/dl (3.4-5.0)
[2024-03-13 11:32] LABS: BILIRUBIN,TOTAL 0.3 mg/dL (0.2-1); CREATININE 1.3 mg/dL (0.55-1.3); TOT PROT 7.2 g/dl (6.4-8.2)
[2024-03-14] MEDS: diazePAM 5 MG TABLET PO SCH (05:30)
[2024-03-15] MEDS: diazePAM 5 MG TABLET PO SCH (06:20)
[2024-03-15] MEDS: ONDANSETRON *ODT* 4 MG TABLET SL PRN (07:11)
[2024-03-15] MEDS: diazePAM 5 MG TABLET PO PRN (08:01)
[2024-03-16] MEDS: diazePAM 5 MG TABLET PO ONE (05:43)
[2024-03-16 09:43] VITALS: BP 123/77; PULSE 68; RESP 16; TEMP 97.9
== END 2024-03-16 11:47 | disposition home or self-care (01) | DRG 774 ==
LOC: YASAS 10:01 → Y6N 10:48
PROVIDERS: ADMIT Allergy & Immunology; ATTEND Surgery
PROC: HZ2ZZZZ Detoxification Services for Substance Abuse Treatment (ICD-10-PCS; principal; 2024-03-12)
DX: F10.230 Alcohol dependence with withdrawal, uncomplicated (principal); F14.20 Cocaine dependence, uncomplicated; F12.20 Cannabis dependence, uncomplicated; F17.210 Nicotine dependence, cigarettes, uncomplicated; F25.9 Schizoaffective disorder, unspecified; F19.282 Other psychoactive substance dependence with psychoactive substance-induced sleep disorder; F31.9 Bipolar disorder, unspecified; Z21 Asymptomatic human immunodeficiency virus [HIV] infection status; I10 Essential (primary) hypertension; R79.89 Other specified abnormal findings of blood chemistry; Z79.899 Other long term (current) drug therapy
CPT/HCPCS: 36415; 80053; 80305; 80307; 82140; 85027; 86780; 93005; 93010; Q0162

== ENCOUNTER 2024-04-07 08:06 | Inpatient (IN) | payer OTHER ==
[2024-04-07 08:47] VITALS: BMI 20.3
[2024-04-07] MEDS ORDERED: IBUPROFEN 400 MG TABLET (FP) PO PRN (08:55)
[2024-04-07] MEDS ORDERED: MAG HYDROX/AL HYDROX/SIMETH 30 ML UNIT-DOSE CUP PO PRN (08:55)
[2024-04-07] MEDS ORDERED: POLYETHYLENE GLYCOL (HEALTHYLAX) 3350 17 GM PACKET PO PRN (08:55)
[2024-04-07] MEDS ORDERED: BENZONATATE 200 MG CAPSULE PO PRN (08:55)
[2024-04-07] MEDS ORDERED: IBUPROFEN 600 MG TABLET (FP) PO PRN (08:55)
[2024-04-07] MEDS ORDERED: MAGNESIUM HYDROX 2400MG/30ML ORAL SUSPENSION 30 ML CUP PO PRN (08:55)
[2024-04-07] MEDS ORDERED: BENZOCAINE/MENTHOL (CHLORASEPTIC ) LOZENGE MM PRN (08:55)
[2024-04-07] MEDS ORDERED: ACETAMINOPHEN 325 MG TABLET (FP) PO PRN (08:55)
[2024-04-07] MEDS ORDERED: guaiFENesin 600 MG TABLET.ER (FP) PO PRN (08:55)
[2024-04-07] MEDS ORDERED: LOPERAMIDE HCL 2 MG CAPSULE PO PRN (08:55)
[2024-04-07] MEDS ORDERED: PRENATAL VITAMINS W/ FOLIC ACID TABLET (FP) PO ONE (09:54)
[2024-04-07] MEDS: PRENATAL VITAMINS W/ FOLIC ACID TABLET (FP) PO SCH (09:57)
[2024-04-07] MEDS: DOLUTEGRAVIR SODIUM 50 MG TABLET (NON-FORMULARY) PO SCH (09:57)
[2024-04-07] MEDS: EMTRICITABINE/TENOFOV ALAFENAM (DESCOVY) TABLET PO SCH (09:57)
[2024-04-07] MEDS: SULFAMETHOXAZOLE/TRIMETHOPRIM 800MG/160MG D.S. TABLET PO SCH (11:13)
[2024-04-07] MEDS ORDERED: SULFAMETHOXAZOLE/TRIMETHOPRIM 800MG/160MG D.S. TABLET PO SCH (14:00)
[2024-04-07] MEDS: hydrOXYzine PAMOATE 25 MG CAPSULE (FP) PO ONE (18:46)
[2024-04-07] MEDS: THIAMINE 100 MG TABLET PO SCH (21:10)
[2024-04-07] MEDS: MELATONIN 5 MG TABLETS PO SCH (21:10)
[2024-04-07] MEDS: QUEtiapine FUMARATE 200 MG TABLET PO SCH (21:11)
[2024-04-07] MEDS: METHOCARBAMOL 500 MG TABLET PO PRN (21:11)
[2024-04-08] MEDS: HYDROCHLOROTHIAZIDE 25 MG TABLET (FP) PO SCH (09:11)
[2024-04-08] MEDS ORDERED: HYDROCHLOROTHIAZIDE 12.5 MG CAPSULE (FP) PO SCH (10:00)
[2024-04-10 11:06] LABS: HEMATOCRIT 43.3 % (35.4-49); HEMOGLOBIN 14.7 GM/dL (11.7-16.9); MCH 30.2 pg (25.7-33.7); MEAN CELL VOLUME 88.9 fl (80-96); MEAN PLT VOLUME 7.7 fl (7.5-11.1); PLATELET COUNT 323 10^3/uL (134-434); RBC 4.87 M/mm3 (4.00-5.60); RDW 14.5 % (11.9-15.9); WHITE BLOOD COUNT 3.9 K/mm3 (4.0-10.0)
[2024-04-10 11:14] LABS: INR 0.93 (0.83-1.09); PROTHROMBIN TIME (PATIENT) 10.7 SEC (9.7-13.0)
[2024-04-10 11:57] LABS: POTASSIUM 4.2 mmol/L (3.5-5.1)
[2024-04-10 12:01] LABS: CALCIUM 9.2 mg/dL (8.5-10.1)
[2024-04-10 12:02] LABS: ALBUMIN 3.4 g/dl (3.4-5.0); BLOOD UREA NITROGEN 19.2 mg/dL (7-18); MAGNESIUM 2.1 mg/dL (1.8-2.4)
[2024-04-10 12:05] LABS: CREATININE 1.2 mg/dL (0.55-1.3)
[2024-04-10 12:07] LABS: BILIRUBIN,TOTAL 0.3 mg/dL (0.2-1); TOT PROT 7.3 g/dl (6.4-8.2)
[2024-04-10 12:41] LABS: ANISOCYTOSIS 1+; MACROCYTOSIS 0
[2024-04-10] MEDS: hydrOXYzine PAMOATE 50 MG CAPSULE (FP) PO PRN (17:14)
[2024-04-12] MEDS: LACTULOSE 20 GM/30 ML UDC (FOR ORAL USE ONLY) PO SCH (21:01)
[2024-04-16 06:56] VITALS: RESP 18; TEMP 97.4
[2024-04-16 09:24] VITALS: BP 144/77; PULSE 79
== END 2024-04-17 12:25 | DRG 772 ==
LOC: YASAS 08:06 → Y3E 09:51
PROVIDERS: ADMIT Allergy & Immunology; ATTEND Psychiatry & Neurology Pain Medicine
PROC: HZ42ZZZ Group Counseling for Substance Abuse Treatment, Cognitive-Behavioral (ICD-10-PCS; principal; 2024-04-07)
DX: F10.20 Alcohol dependence, uncomplicated (principal); F14.20 Cocaine dependence, uncomplicated; F12.20 Cannabis dependence, uncomplicated; F17.210 Nicotine dependence, cigarettes, uncomplicated; F19.280 Other psychoactive substance dependence with psychoactive substance-induced anxiety disorder; F19.282 Other psychoactive substance dependence with psychoactive substance-induced sleep disorder; F25.8 Other schizoaffective disorders; F60.2 Antisocial personality disorder; S69.82XA Other specified injuries of left wrist, hand and finger(s), initial encounter; X78.8XXA Intentional self-harm by other sharp object, initial encounter; Y92.230 Patient room in hospital as the place of occurrence of the external cause
CPT/HCPCS: 36415; 80053; 80305; 82140; 82652; 83735; 85025; 85610; 86780; 87811

== ENCOUNTER 2024-06-28 12:12 | Inpatient (IN) | payer OTHER ==
[2024-06-28 12:37] VITALS: BMI 21.7
[2024-06-28] MEDS ORDERED: ACETAMINOPHEN 325 MG TABLET (FP) PO PRN (14:45)
[2024-06-28] MEDS ORDERED: IBUPROFEN 600 MG TABLET (FP) PO PRN (14:45)
[2024-06-28] MEDS ORDERED: LOPERAMIDE HCL 2 MG CAPSULE PO PRN (14:45)
[2024-06-28] MEDS ORDERED: MAG HYDROX/AL HYDROX/SIMETH 30 ML UNIT-DOSE CUP PO PRN (14:45)
[2024-06-28] MEDS ORDERED: BENZOCAINE/MENTHOL (CHLORASEPTIC ) LOZENGE MM PRN (14:45)
[2024-06-28] MEDS ORDERED: guaiFENesin 600 MG TABLET.ER (FP) PO PRN (14:45)
[2024-06-28] MEDS ORDERED: BENZONATATE 200 MG CAPSULE PO PRN (14:45)
[2024-06-28] MEDS ORDERED: NALOXONE (NARCAN) HCL 4 MG/0.1 ML SPRAY NS PRN (14:45)
[2024-06-28] MEDS ORDERED: IBUPROFEN 400 MG TABLET (FP) PO PRN (14:45)
[2024-06-28] MEDS ORDERED: MAGNESIUM HYDROX 2400MG/30ML ORAL SUSPENSION 30 ML CUP PO PRN (14:45)
[2024-06-28] MEDS ORDERED: POLYETHYLENE GLYCOL (HEALTHYLAX) 3350 17 GM PACKET PO PRN (14:45)
[2024-06-28] MEDS ORDERED: NALOXONE HCL 0.4 MG/ML VIAL IM PRN (14:45)
[2024-06-28] MEDS: SULFAMETHOXAZOLE/TRIMETHOPRIM 800MG/160MG D.S. TABLET PO SCH ×2 (17:29→17:32)
[2024-06-28] MEDS: PRENATAL VITAMINS W/ FOLIC ACID TABLET (FP) PO SCH ×2 (17:29→17:32)
[2024-06-28] MEDS: HYDROCHLOROTHIAZIDE 12.5 MG CAPSULE (FP) PO SCH (17:30)
[2024-06-28] MEDS: EMTRICITABINE/TENOFOV ALAFENAM (DESCOVY) TABLET PO SCH ×2 (17:30→20:28)
[2024-06-28] MEDS: DOLUTEGRAVIR SODIUM 50 MG TABLET (NON-FORMULARY) PO SCH ×2 (17:30→17:33)
[2024-06-28] MEDS: HYDROCHLOROTHIAZIDE 25 MG TABLET (FP) PO SCH (17:32)
[2024-06-28] MEDS: NALTREXONE HCL 50 MG TABLET PO ONE (17:35)
[2024-06-28 21:04] LABS: URINE APPEARANCE CLEAR; URINE BILIRUBIN NEGATIVE (NEGATIVE); URINE COLOR YELLOW; URINE GLUCOSE (UA) NEGATIVE (NEGATIVE); URINE KETONE NEGATIVE (NEGATIVE); URINE LEUK ESTERASE NEGATIVE (NEGATIVE); URINE NITRITE NEGATIVE (NEGATIVE); URINE PROTEIN NEGATIVE (NEGATIVE)
[2024-06-28] MEDS: THIAMINE 100 MG TABLET PO SCH (21:44)
[2024-06-28] MEDS: MELATONIN 5 MG TABLETS PO SCH (21:44)
[2024-06-29] MEDS: NALTREXONE HCL 50 MG TABLET PO SCH (10:41)
[2024-06-29 14:27] LABS: HEMATOCRIT 38.5 % (35.4-49); HEMOGLOBIN 12.5 GM/dL (11.7-16.9); MCH 29.5 pg (25.7-33.7); MCHC 32.6 g/dl (32.0-35.9); MEAN CELL VOLUME 90.5 fl (80-96); MEAN PLT VOLUME 7.6 fl (7.5-11.1); PLATELET COUNT 365 10^3/uL (134-434); RBC 4.26 M/mm3 (4.00-5.60); RDW 15.5 % (11.9-15.9); WHITE BLOOD COUNT 4.1 K/mm3 (4.0-10.0)
[2024-06-29 14:30] LABS: POTASSIUM 4.2 mmol/L (3.5-5.1)
[2024-06-29 14:37] LABS: ALBUMIN 3.1 g/dl (3.4-5.0); BLOOD UREA NITROGEN 21.1 mg/dL (7-18); CALCIUM 8.9 mg/dL (8.5-10.1)
[2024-06-29 14:41] LABS: CREATININE 1.1 mg/dL (0.55-1.3)
[2024-06-29 14:42] LABS: BILIRUBIN,TOTAL 0.6 mg/dL (0.2-1); TOT PROT 6.4 g/dl (6.4-8.2)
[2024-06-29] MEDS: QUEtiapine FUMARATE 100 MG TABLET (FP) PO SCH (22:25)
[2024-06-30] MEDS: BACLOFEN 10 MG TABLET (FP) PO SCH (12:49)
[2024-06-30] MEDS: LACTULOSE 20 GM/30 ML UDC (FOR ORAL USE ONLY) PO SCH (13:38)
[2024-06-30] MEDS: GABAPENTIN 300 MG CAPSULE PO SCH (13:38)
[2024-07-03] MEDS: hydrOXYzine PAMOATE 25 MG CAPSULE (FP) PO PRN (22:38)
[2024-07-05] MEDS: QUEtiapine FUMARATE 200 MG TABLET PO SCH (21:32)
[2024-07-15 06:51] VITALS: RESP 18
[2024-07-16] MEDS: GABAPENTIN 300 MG CAPSULE PO SCH (13:08)
[2024-07-17] MEDS: HYDROCHLOROTHIAZIDE 25 MG TABLET (FP) PO SCH (10:25)
[2024-07-19 07:07] VITALS: TEMP 97.3
[2024-07-19 09:45] VITALS: BP 136/91; PULSE 98
[2024-07-19] MEDS: NALTREXONE MICROSPHERES (VIVITROL) 380 MG DISP.SYRIN IM ONE (10:57)
[2024-07-19] MEDS: NALOXONE (NYS OPIOID OVERDOSE PROGRAM) 4 MG/0.1 ML SPRAY NS PRN (11:29)
[2024-07-25] MEDS ORDERED: NALTREXONE MICROSPHERES (VIVITROL) 380 MG DISP.SYRIN IM ONE (10:00)
== END 2024-07-19 11:47 | disposition home or self-care (01) | DRG 772 ==
LOC: YASAS 12:12 → Y3NR 16:18 → Y5N 06-29 12:43
PROVIDERS: ADMIT Psychiatry & Neurology Pain Medicine; ATTEND Psychiatry & Neurology Pain Medicine
PROC: HZ42ZZZ Group Counseling for Substance Abuse Treatment, Cognitive-Behavioral (ICD-10-PCS; principal; 2024-06-28)
DX: F10.20 Alcohol dependence, uncomplicated (principal); F14.20 Cocaine dependence, uncomplicated; F12.20 Cannabis dependence, uncomplicated; F17.210 Nicotine dependence, cigarettes, uncomplicated; F19.280 Other psychoactive substance dependence with psychoactive substance-induced anxiety disorder; F19.282 Other psychoactive substance dependence with psychoactive substance-induced sleep disorder; F25.8 Other schizoaffective disorders; F43.10 Post-traumatic stress disorder, unspecified; F60.2 Antisocial personality disorder; E72.20 Disorder of urea cycle metabolism, unspecified; G47.00 Insomnia, unspecified; I10 Essential (primary) hypertension; K70.30 Alcoholic cirrhosis of liver without ascites
CPT/HCPCS: 36415; 80053; 80305; 80307; 81003; 82140; 85027; 87811; 93005; 93010; J0475

== ENCOUNTER 2024-08-02 10:20 | Inpatient (IN) | payer OTHER ==
[2024-08-02 10:46] VITALS: BMI 21.7
[2024-08-02] MEDS ORDERED: LORazepam 1 MG TABLET PO PRN (12:50)
[2024-08-02] MEDS ORDERED: METHOCARBAMOL 500 MG TABLET PO PRN (12:50)
[2024-08-02] MEDS ORDERED: MAGNESIUM HYDROX 2400MG/30ML ORAL SUSPENSION 30 ML CUP PO PRN (12:50)
[2024-08-02] MEDS ORDERED: DICYCLOMINE HCL 10 MG CAPSULE PO PRN (12:50)
[2024-08-02] MEDS ORDERED: BENZOCAINE/MENTHOL (CHLORASEPTIC ) LOZENGE MM PRN (12:50)
[2024-08-02] MEDS ORDERED: IBUPROFEN 400 MG TABLET (FP) PO PRN (12:50)
[2024-08-02] MEDS ORDERED: BISMUTH SUBSALICYLATE 262 MG/15 ML BTL PO PRN (12:50)
[2024-08-02] MEDS ORDERED: MAG HYDROX/AL HYDROX/SIMETH 30 ML UNIT-DOSE CUP PO PRN (12:50)
[2024-08-02] MEDS ORDERED: guaiFENesin 600 MG TABLET.ER (FP) PO PRN (12:50)
[2024-08-02] MEDS ORDERED: NICOTINE POLACRILEX 2 MG GUM BUC PRN (12:50)
[2024-08-02] MEDS ORDERED: NICOTINE POLACRILEX 2 MG LOZENGE BC PRN (12:50)
[2024-08-02] MEDS ORDERED: ONDANSETRON *ODT* 4 MG TABLET SL PRN (12:50)
[2024-08-02] MEDS ORDERED: NALOXONE (NYS OPIOID OVERDOSE PROGRAM) 4 MG/0.1 ML SPRAY NS PRN (12:50)
[2024-08-02] MEDS ORDERED: ACETAMINOPHEN 325 MG TABLET (FP) PO PRN (12:50)
[2024-08-02] MEDS ORDERED: POLYETHYLENE GLYCOL (HEALTHYLAX) 3350 17 GM PACKET PO PRN (12:50)
[2024-08-02] MEDS ORDERED: BENZONATATE 200 MG CAPSULE PO PRN (12:50)
[2024-08-02] MEDS ORDERED: NALOXONE (NARCAN) HCL 4 MG/0.1 ML SPRAY NS PRN (12:50)
[2024-08-02] MEDS ORDERED: LOPERAMIDE HCL 2 MG CAPSULE PO PRN (12:50)
[2024-08-02] MEDS ORDERED: NICOTINE 21 MG/24 HOURS TOPICAL PATCH ONE (13:28)
[2024-08-02] MEDS ORDERED: GABAPENTIN 100 MG CAPSULE ONE (13:29)
[2024-08-02] MEDS ORDERED: HYDROCHLOROTHIAZIDE 12.5 MG CAPSULE (FP) ONE (13:29)
[2024-08-02] MEDS: BACLOFEN 10 MG TABLET (FP) PO SCH (13:42)
[2024-08-02] MEDS: HYDROCHLOROTHIAZIDE 50 MG TABLET PO SCH (13:43)
[2024-08-02] MEDS: NICOTINE 14 MG/24 HOURS TOPICAL PATCH TD SCH (13:43)
[2024-08-02] MEDS: GABAPENTIN 400 MG CAPSULE PO SCH (13:44)
[2024-08-02] MEDS: LORazepam 2 MG TABLET PO SCH (17:53)
[2024-08-02] MEDS: hydrOXYzine PAMOATE 25 MG CAPSULE (FP) PO PRN (17:53)
[2024-08-02] MEDS: THIAMINE 100 MG TABLET PO SCH (21:55)
[2024-08-02] MEDS: QUEtiapine FUMARATE 200 MG TABLET PO SCH (21:55)
[2024-08-02] MEDS: MELATONIN 5 MG TABLETS PO SCH (21:55)
[2024-08-03] MEDS: SULFAMETHOXAZOLE/TRIMETHOPRIM 800MG/160MG D.S. TABLET PO SCH (10:22)
[2024-08-03] MEDS: NALTREXONE HCL 50 MG TABLET PO SCH (10:22)
[2024-08-03] MEDS: HYDROCHLOROTHIAZIDE 25 MG TABLET (FP) PO SCH (10:22)
[2024-08-03] MEDS: PRENATAL VITAMINS W/ FOLIC ACID TABLET (FP) PO SCH (10:22)
[2024-08-03] MEDS: DOLUTEGRAVIR SODIUM 50 MG TABLET (NON-FORMULARY) PO SCH (10:23)
[2024-08-03] MEDS: EMTRICITABINE/TENOFOV ALAFENAM (DESCOVY) TABLET PO SCH (12:13)
[2024-08-03 14:46] LABS: CHLORIDE 106 mmol/L (98-107); POTASSIUM 3.6 mmol/L (3.5-5.1); SODIUM 137 mmol/L (136-145)
[2024-08-03 14:47] LABS: HEMATOCRIT 40.6 % (35.4-49); HEMOGLOBIN 13.9 GM/dL (11.7-16.9); MCH 30.8 pg (25.7-33.7); MCHC 34.3 g/dl (32.0-35.9); MEAN CELL VOLUME 89.8 fl (80-96); MEAN PLT VOLUME 7.4 fl (7.5-11.1); PLATELET COUNT 363 10^3/uL (134-434); RBC 4.52 M/mm3 (4.00-5.60); RDW 15.6 % (11.9-15.9); WHITE BLOOD COUNT 2.8 K/mm3 (4.0-10.0)
[2024-08-03 14:49] LABS: ALBUMIN 3.4 g/dl (3.4-5.0); CALCIUM 9.3 mg/dL (8.5-10.1)
[2024-08-03 14:50] LABS: ANION GAP 3 mmol/L (4-13); BLOOD UREA NITROGEN 19.9 mg/dL (7-18); CO2 28 mmol/L (21-32); GLUCOSE,RANDOM 102 mg/dL (74-106)
[2024-08-03 14:53] LABS: CREATININE 1.1 mg/dL (0.55-1.3); SGOT/AST 14 U/L (15-37); SGPT/ALT 28 U/L (13-61)
[2024-08-03 14:54] LABS: BILIRUBIN,TOTAL 0.3 mg/dL (0.2-1); TOT PROT 6.8 g/dl (6.4-8.2)
[2024-08-03 14:56] LABS: ALK PHOS 107 U/L (45-117)
[2024-08-04] MEDS: LORazepam 1 MG TABLET PO SCH (06:19)
[2024-08-05] MEDS ORDERED: LORazepam 0.5 MG TABLET PO PRN
[2024-08-05] MEDS: LORazepam 0.5 MG TABLET PO SCH (05:21)
[2024-08-05] MEDS: IBUPROFEN 600 MG TABLET (FP) PO PRN (17:15)
[2024-08-06] MEDS: LORazepam 0.5 MG TABLET PO ONE (05:45)
[2024-08-06 09:23] VITALS: BP 134/72; PULSE 83; RESP 17; TEMP 97.6
== END 2024-08-06 11:33 | disposition home or self-care (01) | DRG 774 ==
LOC: YASAS 10:20 → Y3N 13:48
PROVIDERS: ADMIT Allergy & Immunology; ATTEND Surgery
PROC: HZ2ZZZZ Detoxification Services for Substance Abuse Treatment (ICD-10-PCS; principal; 2024-08-02)
DX: F10.230 Alcohol dependence with withdrawal, uncomplicated (principal); F14.20 Cocaine dependence, uncomplicated; F17.210 Nicotine dependence, cigarettes, uncomplicated; F19.282 Other psychoactive substance dependence with psychoactive substance-induced sleep disorder; F43.10 Post-traumatic stress disorder, unspecified; F41.9 Anxiety disorder, unspecified; F32.A Depression, unspecified; Z21 Asymptomatic human immunodeficiency virus [HIV] infection status; I10 Essential (primary) hypertension; K74.60 Unspecified cirrhosis of liver; Z91.51 Personal history of suicidal behavior
CPT/HCPCS: 36415; 80053; 80305; 80307; 85027; 86780; 93005; 93010; J0475

== ENCOUNTER 2024-08-30 10:11 | Inpatient (IN) | payer OTHER ==
[2024-08-30 10:56] VITALS: BMI 24.1
[2024-08-30] MEDS ORDERED: BENZONATATE 200 MG CAPSULE PO PRN (11:25)
[2024-08-30] MEDS ORDERED: METHOCARBAMOL 500 MG TABLET PO PRN (11:25)
[2024-08-30] MEDS ORDERED: LORazepam 1 MG TABLET PO PRN (11:25)
[2024-08-30] MEDS ORDERED: IBUPROFEN 600 MG TABLET (FP) PO PRN (11:25)
[2024-08-30] MEDS ORDERED: IBUPROFEN 400 MG TABLET (FP) PO PRN (11:25)
[2024-08-30] MEDS ORDERED: BISMUTH SUBSALICYLATE 262 MG/15 ML BTL PO PRN (11:25)
[2024-08-30] MEDS ORDERED: DICYCLOMINE HCL 10 MG CAPSULE PO PRN (11:25)
[2024-08-30] MEDS ORDERED: NALOXONE (NARCAN) HCL 4 MG/0.1 ML SPRAY NS PRN (11:25)
[2024-08-30] MEDS ORDERED: guaiFENesin 600 MG TABLET.ER (FP) PO PRN (11:25)
[2024-08-30] MEDS ORDERED: ACETAMINOPHEN 325 MG TABLET (FP) PO PRN (11:25)
[2024-08-30] MEDS ORDERED: BENZOCAINE/MENTHOL (CHLORASEPTIC ) LOZENGE MM PRN (11:25)
[2024-08-30] MEDS ORDERED: LOPERAMIDE HCL 2 MG CAPSULE PO PRN (11:25)
[2024-08-30] MEDS ORDERED: MAG HYDROX/AL HYDROX/SIMETH 30 ML UNIT-DOSE CUP PO PRN (11:25)
[2024-08-30] MEDS ORDERED: POLYETHYLENE GLYCOL (HEALTHYLAX) 3350 17 GM PACKET PO PRN (11:25)
[2024-08-30] MEDS ORDERED: MAGNESIUM HYDROX 2400MG/30ML ORAL SUSPENSION 30 ML CUP PO PRN (11:25)
[2024-08-30] MEDS ORDERED: ONDANSETRON *ODT* 4 MG TABLET SL PRN (11:25)
[2024-08-30] MEDS: BACLOFEN 10 MG TABLET (FP) PO SCH (12:49)
[2024-08-30] MEDS: GABAPENTIN 400 MG CAPSULE PO SCH (13:02)
[2024-08-30] MEDS: LORazepam 2 MG TABLET PO SCH (17:15)
[2024-08-30] MEDS: QUEtiapine FUMARATE 200 MG TABLET PO SCH (22:23)
[2024-08-30] MEDS: THIAMINE 100 MG TABLET PO SCH (22:23)
[2024-08-30] MEDS: MELATONIN 5 MG TABLETS PO SCH (22:25)
[2024-08-31] MEDS: SULFAMETHOXAZOLE/TRIMETHOPRIM 800MG/160MG D.S. TABLET PO SCH (09:15)
[2024-08-31] MEDS: HYDROCHLOROTHIAZIDE 25 MG TABLET (FP) PO SCH (09:15)
[2024-08-31] MEDS: NALTREXONE HCL 50 MG TABLET PO SCH (09:15)
[2024-08-31] MEDS: PRENATAL VITAMINS W/ FOLIC ACID TABLET (FP) PO SCH (09:16)
[2024-08-31] MEDS: DOLUTEGRAVIR SODIUM 50 MG TABLET (NON-FORMULARY) PO SCH (09:19)
[2024-08-31] MEDS: FLU VACCINE (FLULAVAL) PF 45 MCG/0.5 ML SYRINGE 2024-2025 IM ONE (11:08)
[2024-08-31 11:15] LABS: HEMATOCRIT 38.2 % (35.4-49); HEMOGLOBIN 13.2 GM/dL (11.7-16.9); MCH 30.3 pg (25.7-33.7); MEAN CELL VOLUME 87.7 fl (80-96); RBC 4.36 M/mm3 (4.00-5.60); WHITE BLOOD COUNT 3.3 K/mm3 (4.0-10.0)
[2024-08-31 11:16] LABS: MCHC 34.6 g/dl (32.0-35.9); MEAN PLT VOLUME 7.6 fl (7.5-11.1); PLATELET COUNT 280 10^3/uL (134-434); RDW 14.6 % (11.9-15.9)
[2024-08-31 11:25] LABS: POTASSIUM 3.9 mmol/L (3.5-5.1)
[2024-08-31 11:30] LABS: CALCIUM 9.2 mg/dL (8.5-10.1)
[2024-08-31 11:31] LABS: ALBUMIN 3.1 g/dl (3.4-5.0); BLOOD UREA NITROGEN 15.7 mg/dL (7-18)
[2024-08-31 11:35] LABS: BILIRUBIN,TOTAL 0.3 mg/dL (0.2-1); TOT PROT 6.3 g/dl (6.4-8.2)
[2024-08-31] MEDS: EMTRICITABINE/TENOFOV ALAFENAM (DESCOVY) TABLET PO SCH (14:19)
[2024-08-31] MEDS: hydrOXYzine PAMOATE 25 MG CAPSULE (FP) PO PRN (17:29)
[2024-09-01] MEDS: LORazepam 1 MG TABLET PO SCH (05:07)
[2024-09-01] MEDS: PNEUMOC 20-VAL CONJ-DIP CRM/PF 0.5 ML SYRINGE IM ONE (12:28)
[2024-09-02] MEDS ORDERED: LORazepam 0.5 MG TABLET PO PRN
[2024-09-02] MEDS: LORazepam 0.5 MG TABLET PO SCH (05:34)
[2024-09-02] MEDS: NALOXONE (NYS OPIOID OVERDOSE PROGRAM) 4 MG/0.1 ML SPRAY NS SCH (12:07)
[2024-09-03] MEDS: LORazepam 0.5 MG TABLET PO ONE (05:34)
[2024-09-03 08:41] VITALS: BP 121/80; PULSE 86; RESP 18; TEMP 97.6
== END 2024-09-03 09:48 | disposition home or self-care (01) | DRG 774 ==
LOC: YASAS 10:11 → Y6N 11:41
PROVIDERS: ADMIT Allergy & Immunology; ATTEND Surgery
PROC: HZ2ZZZZ Detoxification Services for Substance Abuse Treatment (ICD-10-PCS; principal; 2024-08-30)
DX: F10.230 Alcohol dependence with withdrawal, uncomplicated (principal); F14.20 Cocaine dependence, uncomplicated; F12.20 Cannabis dependence, uncomplicated; F17.210 Nicotine dependence, cigarettes, uncomplicated; F60.2 Antisocial personality disorder; F25.9 Schizoaffective disorder, unspecified; Z21 Asymptomatic human immunodeficiency virus [HIV] infection status; K70.30 Alcoholic cirrhosis of liver without ascites; Z79.899 Other long term (current) drug therapy
CPT/HCPCS: 36415; 80053; 80305; 80307; 85027; 86359; 86360; 86780; 86803; 90656; 90677; 93005; 93010; G0008; G0009; J0475

== ENCOUNTER 2025-05-10 11:06 | Inpatient (IN) | payer OTHER ==
[2025-05-10 13:07] VITALS: BMI 22.2
[2025-05-10] MEDS ORDERED: LOPERAMIDE HCL 2 MG CAPSULE PO PRN (13:16)
[2025-05-10] MEDS ORDERED: MAG HYDROX/AL HYDROX/SIMETH 30 ML UNIT-DOSE CUP PO PRN (13:16)
[2025-05-10] MEDS ORDERED: BENZOCAINE/MENTHOL (CHLORASEPTIC ) LOZENGE MM PRN (13:16)
[2025-05-10] MEDS ORDERED: ACETAMINOPHEN 325 MG TABLET (FP) PO PRN (13:16)
[2025-05-10] MEDS ORDERED: NALOXONE (NARCAN) HCL 4 MG/0.1 ML SPRAY NS PRN (13:16)
[2025-05-10] MEDS ORDERED: MAGNESIUM HYDROX 2400MG/30ML ORAL SUSPENSION 30 ML CUP PO PRN (13:16)
[2025-05-10] MEDS ORDERED: POLYETHYLENE GLYCOL (HEALTHYLAX) 3350 17 GM PACKET PO PRN (13:16)
[2025-05-10] MEDS ORDERED: NICOTINE POLACRILEX 2 MG GUM BUC PRN (13:16)
[2025-05-10] MEDS ORDERED: BENZONATATE 200 MG CAPSULE PO PRN (13:16)
[2025-05-10] MEDS ORDERED: guaiFENesin 600 MG TABLET.ER (FP) PO PRN (13:16)
[2025-05-10] MEDS ORDERED: NICOTINE POLACRILEX 2 MG LOZENGE BC PRN (13:16)
[2025-05-10] MEDS ORDERED: IBUPROFEN 400 MG TABLET (FP) PO PRN (13:16)
[2025-05-10] MEDS ORDERED: diphenhydrAMINE HCL 25 MG CAPSULE (FP) PO ONE (13:24)
[2025-05-10] MEDS: diphenhydrAMINE HCL 25 MG CAPSULE (FP) PO ONE (13:25)
[2025-05-10] MEDS: predniSONE 20 MG TABLET (UD) PO ONE (15:15)
[2025-05-10] MEDS: HYDROCHLOROTHIAZIDE 25 MG TABLET (FP) PO SCH (16:12)
[2025-05-10] MEDS: THIAMINE 100 MG TABLET PO SCH (21:47)
[2025-05-10] MEDS: MELATONIN 5 MG TABLETS PO SCH (21:48)
[2025-05-10] MEDS: hydrOXYzine PAMOATE 25 MG CAPSULE (FP) PO PRN (21:48)
[2025-05-11] MEDS: DOLUTEGRAVIR SODIUM 50 MG TABLET (NON-FORMULARY) PO SCH (09:12)
[2025-05-11] MEDS: PRENATAL VITAMINS W/ FOLIC ACID TABLET (FP) PO SCH (09:13)
[2025-05-11] MEDS: EMTRICITABINE/TENOFOV ALAFENAM (DESCOVY) TABLET PO SCH (10:25)
[2025-05-12] MEDS: QUEtiapine FUMARATE 100 MG TABLET (FP) PO SCH (11:33)
[2025-05-13 17:07] LABS: URINE APPEARANCE CLEAR; URINE BILIRUBIN NEGATIVE (NEGATIVE); URINE COLOR YELLOW; URINE GLUCOSE (UA) NEGATIVE (NEGATIVE); URINE KETONE NEGATIVE (NEGATIVE); URINE LEUK ESTERASE NEGATIVE (NEGATIVE); URINE NITRITE NEGATIVE (NEGATIVE); URINE PROTEIN NEGATIVE (NEGATIVE); URINE UROBILINOGEN 0.2 mg/dL (0.2-1.0)
[2025-05-14] MEDS: QUEtiapine FUMARATE 100 MG TABLET (FP) PO SCH (10:07)
[2025-05-15] MEDS: IBUPROFEN 600 MG TABLET (FP) PO PRN (21:13)
[2025-05-20 07:26] VITALS: RESP 16
[2025-05-21 07:07] VITALS: TEMP 97.6
[2025-05-21 09:23] VITALS: BP 155/83; PULSE 73
== END 2025-05-21 16:20 | disposition home or self-care (01) | DRG 772 ==
LOC: YASAS 11:06 → Y3NR 13:58 → Y5N 05-12 10:55 → Y3NR 05-15 18:04 → Y5N 05-16 16:36 → Y3NR 05-16 16:46 → Y3E 05-17 09:47 → Y3NR 05-17 23:38 → Y3E 05-17 23:40
PROVIDERS: ADMIT Neuromusculoskeletal Medicine & OMM; ATTEND Psychiatry & Neurology Pain Medicine
PROC: HZ42ZZZ Group Counseling for Substance Abuse Treatment, Cognitive-Behavioral (ICD-10-PCS; principal; 2025-05-10)
DX: F10.20 Alcohol dependence, uncomplicated (principal); F14.20 Cocaine dependence, uncomplicated; I10 Essential (primary) hypertension; F43.10 Post-traumatic stress disorder, unspecified; Z21 Asymptomatic human immunodeficiency virus [HIV] infection status; L84 Corns and callosities; F17.210 Nicotine dependence, cigarettes, uncomplicated; Z91.148 Patient's other noncompliance with medication regimen for other reason
CPT/HCPCS: 80305; 80307; 81003; 87811; 93005; 93010

== ENCOUNTER 2025-08-04 12:07 | Inpatient (IN) | payer OTHER ==
[2025-08-04 12:57] VITALS: BMI 24.1
[2025-08-04] MEDS ORDERED: LOPERAMIDE HCL 2 MG CAPSULE PO PRN (13:00)
[2025-08-04] MEDS ORDERED: IBUPROFEN 600 MG TABLET (FP) PO PRN (13:00)
[2025-08-04] MEDS ORDERED: NICOTINE POLACRILEX 2 MG LOZENGE BC PRN (13:00)
[2025-08-04] MEDS ORDERED: ONDANSETRON *ODT* 4 MG TABLET SL PRN (13:00)
[2025-08-04] MEDS ORDERED: METHOCARBAMOL 500 MG TABLET PO PRN (13:00)
[2025-08-04] MEDS ORDERED: ACETAMINOPHEN 325 MG TABLET (FP) PO PRN (13:00)
[2025-08-04] MEDS ORDERED: DICYCLOMINE HCL 10 MG CAPSULE PO PRN (13:00)
[2025-08-04] MEDS ORDERED: MAGNESIUM HYDROX 2400MG/30ML ORAL SUSPENSION 30 ML CUP PO PRN (13:00)
[2025-08-04] MEDS ORDERED: POLYETHYLENE GLYCOL (HEALTHYLAX) 3350 17 GM PACKET PO PRN (13:00)
[2025-08-04] MEDS ORDERED: BISMUTH SUBSALICYLATE 524 MG/30 ML PO PRN (13:00)
[2025-08-04] MEDS ORDERED: guaiFENesin 600 MG TABLET.ER (FP) PO PRN (13:00)
[2025-08-04] MEDS ORDERED: MAG HYDROX/AL HYDROX/SIMETH 30 ML UNIT-DOSE CUP PO PRN (13:00)
[2025-08-04] MEDS ORDERED: BENZONATATE 200 MG CAPSULE PO PRN (13:00)
[2025-08-04] MEDS ORDERED: BENZOCAINE/MENTHOL (CHLORASEPTIC ) LOZENGE MM PRN (13:00)
[2025-08-04] MEDS ORDERED: NALOXONE (NARCAN) HCL 4 MG/0.1 ML SPRAY NS PRN (13:00)
[2025-08-04] MEDS ORDERED: IBUPROFEN 400 MG TABLET (FP) PO PRN (13:00)
[2025-08-04] MEDS ORDERED: PRENATAL VITAMINS W/ FOLIC ACID TABLET (FP) PO ONE (14:04)
[2025-08-04] MEDS: PRENATAL VITAMINS W/ FOLIC ACID TABLET (FP) PO SCH (14:05)
[2025-08-04] MEDS: hydrOXYzine PAMOATE 25 MG CAPSULE (FP) PO PRN (17:29)
[2025-08-04] MEDS: MELATONIN 5 MG TABLETS PO SCH (22:38)
[2025-08-04] MEDS: THIAMINE 100 MG TABLET PO SCH (22:38)
[2025-08-04] MEDS: levETIRAcetam 500 MG TABLET (FP) PO SCH (22:38)
[2025-08-04] MEDS: BACLOFEN 10 MG TABLET (FP) PO SCH (22:39)
[2025-08-05] MEDS: HYDROCHLOROTHIAZIDE 25 MG TABLET (FP) PO SCH (10:23)
[2025-08-05] MEDS: NALTREXONE HCL 50 MG TABLET PO SCH (10:23)
[2025-08-05 12:36] LABS: MCHC 33.3 g/dl (32.3-36.5); MEAN CELL VOLUME 86.7 fl (79.0-92.2); MEAN PLT VOLUME 10.6 fl (9.4-12.4); RDW 14.8 % (12.2-16.1)
[2025-08-05 13:00] LABS: GLUCOSE,RANDOM 142.0 mg/dL (74-106); TOT PROT 8.0 g/dl (6.4-8.2)
[2025-08-05 13:01] LABS: CO2 25.0 mmol/L (21-32)
[2025-08-05 13:02] LABS: ALK PHOS 96.0 U/L (40-150)
[2025-08-05 13:05] LABS: CREATININE 1.03 mg/dL (0.55-1.3); SGOT/AST 37.0 U/L (5-34); SGPT/ALT 28.0 U/L (0-55)
[2025-08-07 06:37] VITALS: RESP 17
[2025-08-07 09:10] VITALS: BP 117/69; PULSE 76; TEMP 96.9
== END 2025-08-07 11:30 | disposition home or self-care (01) | DRG 774 ==
LOC: YASAS 12:07 → Y6N 13:44
PROVIDERS: ADMIT Allergy & Immunology; ATTEND Allergy & Immunology
PROC: HZ2ZZZZ Detoxification Services for Substance Abuse Treatment (ICD-10-PCS; principal; 2025-08-04)
DX: F10.230 Alcohol dependence with withdrawal, uncomplicated (principal); F14.10 Cocaine abuse, uncomplicated; F17.210 Nicotine dependence, cigarettes, uncomplicated; F31.9 Bipolar disorder, unspecified; F19.24 Other psychoactive substance dependence with psychoactive substance-induced mood disorder; F19.282 Other psychoactive substance dependence with psychoactive substance-induced sleep disorder; F43.10 Post-traumatic stress disorder, unspecified; F41.9 Anxiety disorder, unspecified; B20 Human immunodeficiency virus [HIV] disease; I10 Essential (primary) hypertension; K70.30 Alcoholic cirrhosis of liver without ascites; Z91.51 Personal history of suicidal behavior; Z79.899 Other long term (current) drug therapy
CPT/HCPCS: 36415; 80053; 80305; 80307; 85027; 86780; 93005; 93010; J0475